=== PATIENT | female | born 1965 | race Caucasian/White ===

== ENCOUNTER → 2018-12-01 08:07 | Outpatient (CLI) | payer OTHER, SELFPAY ==
[2017-09-11 08:42] VITALS: BMI 38.3
--- NOTE | 2018-12-01 08:13 | BI_ITS ---
MAMMOGRAPHY - BILATERAL SCREENING REASON FOR EXAM: Female, 53 years old. Routine annual screening examination. PERTINENT HISTORY: Grandmother with breast cancer. Aunt with breast cancer. TECHNIQUE: Digital bilateral breast eusebia (3D mammographic acquisition) in the CC and MLO projections. 2-D mediolateral oblique (MLO) and craniocaudad (CC) views of both breasts were obtained. CAD: Full Field Digital Mammography with Computer Added Detection was performed. COMPARISON: Comparison is made with prior study dated July 18, 2017 and February 19, 2016. FINDINGS: Breast Composition: There are scattered areas of fibroglandular density. There are no dominant masses or suspicious calcifications. No other significant abnormalities are identified. There has been no significant change since the prior study. BI/SCREENING MAMM (CAD), BILAT IMPRESSION: Stable bilateral screening mammogram. Yearly follow-up mammogram recommended. (A) ASSESSMENT CATEGORY: BIRADS Category 1: Negative. A letter regarding these results will be sent to the patient by the facility within 30 days. Approximately 10% of breast cancers are not detected by mammography. A normal mammogram should not delay biopsy of a clinically suspicious abnormality. [id number] Electronically Signed: Dameon Alejandro, at 8:57 EDT , Service support ,
== END ==
PROVIDERS: Family Provider Family Medicine; PCP Family Medicine; Referring Provider Family Medicine; Visit Provider Family Medicine
DX: Z12.31 Encounter for screening mammogram for malignant neoplasm of breast (principal)
CPT/HCPCS: 77063; 77067

== ENCOUNTER → 2020-01-10 11:54 | Outpatient (CLI) | payer OTHER, SELFPAY ==
--- NOTE | 2020-01-10 11:55 | BI_ITS ---
MAMMOGRAPHY - BILATERAL SCREENING REASON FOR EXAM: Female, 54 years old. Routine annual screening examination. PERTINENT HISTORY: Grandmother with breast cancer. Aunt with breast cancer. TECHNIQUE: Digital bilateral breast zoya (3D mammographic acquisition) in the CC and MLO projections. 2-D mediolateral oblique (MLO) and craniocaudad (CC) views of both breasts were obtained. CAD: Full Field Digital Mammography with Computer Added Detection was performed. COMPARISON: Comparison is made with prior examination dated December 01, 2018 and July 18, 2017. FINDINGS: Breast Composition: There are scattered areas of fibroglandular density. There are no dominant masses or suspicious calcifications. No other significant abnormalities are identified. There has been no significant change since the prior study. BI/SCREEN MAMM (CAD) W/ZOYA BILAT IMPRESSION: Stable bilateral screening mammogram. Yearly follow-up mammogram recommended. (A) ASSESSMENT CATEGORY: BIRADS Category 1: Negative. A letter regarding these results will be sent to the patient by the facility within 30 days. Approximately 10% of breast cancers are not detected by mammography. A normal mammogram should not delay biopsy of a clinically suspicious abnormality. [id number] Electronically Signed: Dameon Alejandro, at 12:59 EDT , Service support ,
== END ==
PROVIDERS: PCP Family Medicine; Referring Provider Family Medicine; Visit Provider Family Medicine
DX: Z12.31 Encounter for screening mammogram for malignant neoplasm of breast (principal)
CPT/HCPCS: 77063; 77067

== ENCOUNTER → 2020-10-09 07:09 | Outpatient (CLI) | payer OTHER, SELFPAY ==
[2020-10-09 10:38] LABS: Vitamin D,25 Hydroxy 38.3 ng/mL
[2020-10-09 10:50] LABS: Anion Gap 5 (5-15); BUN 20 mg/dL (7-18); BUN/Creat Ratio 23.7 RATIO (10-20); Calcium,Total 9.5 mg/dL (8.5-10.1); Chloride 104 mmol/L (98-107); Cholesterol 278 mg/dL (200); Creatinine, Serum 0.84 mg/dL (0.55-1.02); EST Glomerular Filtration Rate 75 mL/min (>60); Est Glom Filt Rate - Afr Amer 90 mL/min (>60); Glucose 141 mg/dL (74-106); High Density Lipoprotein 83 mg/dL; Potassium 4.1 mmol/L (3.5-5.1); Sodium Level 137 mmol/L (136-145); Thyroid Stim Hormone (TSH) 2.22 uIU/mL (0.358-3.74); Triglycerides 72 mg/dL; Very Low Density Lipoprotein 14 mg/dL (5-40)
== END ==
PROVIDERS: PCP Family Medicine; Referring Provider Family Medicine; Visit Provider Family Medicine
DX: Z13.29 Encounter for screening for other suspected endocrine disorder (principal); L40.50 Arthropathic psoriasis, unspecified; R73.01 Impaired fasting glucose
CPT/HCPCS: 36415; 80048; 80061; 82306; 84443

== ENCOUNTER → 2020-12-22 | Outpatient (CLI) | payer OTHER, SELFPAY ==
[2017-09-11 08:42] VITALS: BMI 38.3
[2020-12-25 16:47] LABS: HPV Reflexed? NOT INDICATED
== END | disposition home or self-care (01) ==
LOC: LABSPEC 14:01
PROVIDERS: PCP Family Medicine; Referring Provider Family Medicine; Visit Provider Registered Nurse
DX: Z01.419 Encounter for gynecological examination (general) (routine) without abnormal findings (principal)
CPT/HCPCS: 88175; G0145

== ENCOUNTER → 2021-01-11 09:48 | Outpatient (CLI) | payer OTHER, SELFPAY ==
[2017-09-11 08:42] VITALS: BMI 38.3
--- NOTE | 2021-01-11 09:50 | BI_ITS ---
MAMMOGRAPHY - BILATERAL SCREENING 3-D TOMOSYNTHESIS REASON FOR EXAM: Female, 55 years old. Routine screening PERTINENT HISTORY: Grandmother and aunt with breast cancer.. TECHNIQUE: 2-D mammograms and 3-D Tomosynthesis of the breast (s) were performed. CAD was performed. COMPARISON: 01/10/2020 FINDINGS: The breast composition is almost entirely fat. Scattered benign calcifications are seen. No dense spiculated masses or suspicious microcalcifications are identified. No architectural distortion is identified. There is no skin thickening or retraction. There has been no significant change since the prior study. BI/SCRN MAMM (CAD)W/ZOYA BILAT IMPRESSION: No mammographic signs of malignancy. Routine yearly mammograms recommended. ASSESSMENT CATEGORY: BIRADS Category 1: Negative. A letter regarding these results will be sent to the patient by the facility within 30 days. FOLLOW UP RECOMMENDATION: Yearly follow up mammogram recommended. (A) Approximately 10% of breast cancers are not detected by mammography. A normal mammogram should not delay biopsy of a clinically suspicious abnormality. Electronically Signed: Lucian Carr MD at 11:19 EDT , Service support ,
== END ==
PROVIDERS: PCP Family Medicine; Referring Provider Family Medicine; Visit Provider Family Medicine
DX: Z12.31 Encounter for screening mammogram for malignant neoplasm of breast (principal); Z13.89 Encounter for screening for other disorder
CPT/HCPCS: 77063; 77067

== ENCOUNTER → 2021-06-17 10:15 | Outpatient (CLI) | payer OTHER, SELFPAY ==
--- NOTE | 2021-06-17 10:17 | RAD_ITS ---
STUDY: X-RAY CHEST REASON FOR EXAM: Female, 56 years old. Fever and cough TECHNIQUE: PA and lateral views of the chest. COMPARISON: None. FINDINGS: The lungs are clear and expanded. There is no demonstrated pleural abnormality. Normal size heart. Normal mediastinum and mery. Normal visualized pulmonary arteries. Normal visualized aortic arch and descending thoracic aorta. Normal visualized thoracic spine. Normal visualized ribs, clavicles, and shoulders. There is no demonstrated abnormality of the visualized soft tissue structures of the upper abdomen. RAD/Chest PA and Lateral IMPRESSION: No acute pulmonary process Electronically Signed: Lucian Carr MD at 10:30 EDT , Service support ,
== END ==
PROVIDERS: PCP Family Medicine; Referring Provider Family Medicine; Visit Provider Family Medicine
DX: R05.9 Cough, unspecified (principal)
CPT/HCPCS: 71046

== ENCOUNTER 2021-07-21 10:41 | Emergency (ER) | payer OTHER, SELFPAY ==
[2021-07-21] VITALS (7 sets, daily range): BP systolic 135–161; BP diastolic 75–86; PULSE 70–82; RESP 22–29; TEMP 36.7–37; O2SAT 87–99; BMI 34.3
--- NOTE | 2021-07-21 10:53 | EKG12_ITS ---
Test Reason : SOB Blood Pressure : / mmHG Vent. Rate : 084 BPM Atrial Rate : 084 BPM P-R Int : 138 ms QRS Dur : 082 ms QT Int : 358 ms P-R-T Axes : 019 -09 -06 degrees QTc Int : 423 ms Normal sinus rhythm Nonspecific T wave abnormality Abnormal ECG Confirmed by FREEMAN PARRY, BHARATH ([id number]), technical editor ANSELMO TONG ([id number]) on 07/23/2021 11:44:23 AM Referred By: MODESTO Confirmed By:BHARATH MILLARD MD
--- NOTE | 2021-07-21 11:00 | ED.VIS.DYS ---
HPI History of Present Illness Chief Complaint: Shortness of Breath Narrative Narrative: Patient presents with her because of increased shortness of breath that she has had over the last 3 days. She states that she has a history of a chronic cough, and recently finished steroids along with antibiotics on Monday of last week. Monday, she began feeling short of breath with dyspnea on exertion and mild orthopnea. She denies any history of CHF. No leg swelling. She did a home test for COVID-19 yesterday which was positive. She has been vaccinated against it. Her states that he applied a pulse oximeter to her, and when she would walk to go to the bathroom, it would read 83, and her baseline was 91%. She describes the chest tightness, and pain with coughing, but no nausea or vomiting. No diaphoresis. [facility] Medical History (Updated 07/21/21 @ 14:14 by Dwayne Ingram MD) History of chronic cough IBS (irritable bowel syndrome) Home Medications Ranitidine [Zantac] 150 mg PO DAILY 09/07/17 [History Last Taken Unknown] duloxetine 90 mg PO DAILY 09/07/17 [History Last Taken Unknown] multivitamin [Daily Multiple Vitamin] 1 ea PO DAILY 09/07/17 [History Last Taken Unknown] albuterol sulfate [Ventolin HFA] 1 - 2 puff INHALATION Q4H PRN PRN #1 ea 07/21/21 [Rx Last Taken Unknown] benzonatate 100 mg PO BID PRN 07/21/21 [History Last Taken Unknown] dexamethasone [Decadron] 6 mg PO DAILY #10 tab 07/21/21 [Rx Last Taken Unknown] fluticasone propionate 1 spray INTRANASAL DAILY 07/21/21 [History Last Taken Unknown] fluticasone propionate [Flovent HFA] 1 puff INHALATION DAILY 07/21/21 [History Last Taken Unknown] Allergy/AdvReac Type Severity Reaction Status Date / Time No Known Allergies Allergy Verified 07/21/21 10:41 Surgical History (Updated 07/21/21 @ 11:07 by Jesus [place]) History of foot surgery History of tonsillectomy History of tubal ligation Social History Smoking Status: Never smoker ROS ROS ED ROS Narrative Constitutional: No fever, no chills. HEENT: No sore throat. No neck pain. No loss of vision. No rhinorrhea. Cardiovascular: Positive chest pain with coughing, nonradiating. No palpitations. No pedal edema. Respiratory: Positive cough, positive shortness of breath with dyspnea on exertion and orthopnea. Abdominal: No abdominal pain. No nausea. No vomiting. Genitourinary: No dysuria. No hematuria. Musculoskeletal: No myalgias. No arthralgias. Neurologic: No headaches. No dizziness. No lightheadedness. Skin: No rash. No change in color. Psychiatric: No depression. No anxiety. EXAM Physical Exam Narrative Exam Narrative: Afebrile. Vital signs noted. HEENT: Normocephalic. Atraumatic. PERRL, EOMI. Neck soft and supple. No point tenderness or step off. Cardiovascular: Regular rate and rhythm. No murmurs, rubs, or gallops appreciated. Respiratory: No tachypnea. Bilateral rhonchi at the bases. Gastrointestinal: Abdomen soft, nontender, with normoactive bowel sounds. No rebound or guarding. Neurological: Awake. Alert. Nonfocal, nonlateralizing. Skin: No rash. Normal color. No pallor. Musculoskeletal: No pedal edema. Full range of motion extremities. Const Vital Signs: 07/21/21 10:41 07/21/21 11:20 07/21/21 11:21 Temperature 98.0 F Temperature Source Oral Pulse Rate 82 Respiratory Rate 22 H Respiratory Effort Normal Respiratory Depth Normal Respiratory Pattern Normal Blood Pressure 146/86 H Blood Pressure Mean 106 Pulse Ox 95 Pulse Ox [AMBULATING on Room Air] 87 Pulse Ox [AMBULATING with Oxygen #1] 99 Pulse Ox [At REST on Room Air] 95 Pulse Ox [At REST with Oxygen] 99 Oxygen Delivery Method Room Air Room Air Oxygen Flow Rate (L/min) Oxygen Flow Rate (L/min) [AMBULATING with Oxygen #1] 2 Oxygen Flow Rate (L/min) [At REST with Oxygen] 2 07/21/21 12:18 07/21/21 13:00 Temperature 98.0 F 98.3 F Temperature Source Oral Temporal Pulse Rate 71 70 Respiratory Rate 24 H 28 H Respiratory Effort Respiratory Depth Respiratory Pattern Blood Pressure 150/76 H 146/81 H Blood Pressure Mean 100 102 Pulse Ox 98 96 Pulse Ox [AMBULATING on Room Air] Pulse Ox [AMBULATING with Oxygen #1] Pulse Ox [At REST on Room Air] Pulse Ox [At REST with Oxygen] Oxygen Delivery Method Nasal Cannula Nasal Cannula Oxygen Flow Rate (L/min) 2 2 Oxygen Flow Rate (L/min) [AMBULATING with Oxygen #1] Oxygen Flow Rate (L/min) [At REST with Oxygen] MDM MDM MDM Narrative Medical decision making narrative: Pulse ox in triage was 95% on room air. Comprehensive work-up was pursued. I will obtain a chest x-ray along with basic laboratory work including troponin and D-dimer given her reported Covid positive status. Her EKG demonstrates normal sinus rhythm at 84 bpm without ectopy or acute ST changes. WBC count slightly low at 4.3 consistent with Covid. D-dimer is elevated at 1.0. Electrolyte panel is grossly unremarkable except for glucose appropriately elevated at 134, she has normal anion gap however. High-sensitivity troponin negative at 6. Lactic acid is normal at 0.7. CTA was obtained which shows Covid pneumonia. There is no evidence of PE. With ambulation, she has hypoxic, below 88. She is satting well on nasal cannula. I discussed patient with social work for concentrator of oxygen for home use. She had been given dexamethasone 6 mg intravenously here. I will write her prescription for the next 10 days along with an albuterol inhaler. Given the limited amount of inpatient beds, and that she is satting well on nasal cannula oxygen and does not require high flow, as she is receiving nasal cannula oxygen/concentrator, she will be discharged to follow-up with her primary care physician. Return instructions to the emergency department were reviewed. Disposition is discharged home in stable condition. Lab Data Attestation: I reviewed the patient's lab results. Labs: Laboratory Results - last 24 hr 07/21/21 07/21/21 07/21/21 11:10 11:10 11:10 WBC 4.3 L RBC 4.89 Hgb 14.2 Hct 42.8 MCV 87.5 MCH 29.0 MCHC 33.2 RDW Std Deviation 39.9 RDW Coeff of Olga 12.5 Plt Count 251 MPV 9.0 Immature Gran % (Auto) 0.200 Neut % (Auto) 69.9 Lymph % (Auto) 20.4 Ware % (Auto) 7.7 Eos % (Auto) 1.6 Baso % (Auto) 0.2 Absolute Neuts (auto) 3.0 Absolute Lymphs (auto) 0.88 Nucleated RBC % 0 D-Dimer Quant (PE/DVT) 1.05 H* Sodium 141 Potassium 3.6 Chloride 103 Carbon Dioxide 30.0 Anion Gap 8 BUN 14 Creatinine 0.72 Estim Creat Clear Calc 76.24 Est GFR (MDRD) Af Amer 109 Est GFR (MDRD) Non-Af 90 BUN/Creatinine Ratio 19.6 Glucose 134 H Lactic Acid Calcium 9.2 Total Bilirubin 0.60 AST 143 H ALT 255 H Alkaline Phosphatase 279 H Troponin I High Sens 6 Total Protein 7.6 Albumin 2.8 L Globulin 4.8 H Albumin/Globulin Ratio 0.6 L 07/21/21 11:10 WBC RBC Hgb Hct MCV MCH MCHC RDW Std Deviation RDW Coeff of Olga Plt Count MPV Immature Gran % (Auto) Neut % (Auto) Lymph % (Auto) Ware % (Auto) Eos % (Auto) Baso % (Auto) Absolute Neuts (auto) Absolute Lymphs (auto) Nucleated RBC % D-Dimer Quant (PE/DVT) Sodium Potassium Chloride Carbon Dioxide Anion Gap BUN Creatinine Estim Creat Clear Calc Est GFR (MDRD) Af Amer Est GFR (MDRD) Non-Af BUN/Creatinine Ratio Glucose Lactic Acid 0.7 Calcium Total Bilirubin AST ALT Alkaline Phosphatase Troponin I High Sens Total Protein Albumin Globulin Albumin/Globulin Ratio Radiography Diagnostic Testing: Clinical Impression(s) from Imaging Studies Chest X-Ray 07/21/21 11:30 IMPRESSION: Findings suggestive of multifocal infectious/inflammatory etiology and can be seen with atypical pneumonia such as Covid pneumonia. Electronically Signed: Schuyler Goins MD at 11:56 EST Tel , Service support , Chest CTA 07/21/21 11:37 IMPRESSION: 1. No central or segmental pulmonary embolism. 2. Multifocal infiltrates with features commonly reported with COVID pneumonia. Electronically Signed: José Luis Herrera MD ([place]) at 12:10 EST , Service support , Discharge Plan Triage Chief Complaint: Shortness of Breath ED Provider: Dwayne Ingram Dx/Rx/DC Orders Clinical Impression: Pneumonia due to COVID-19 virus, Hypoxia, Shortness of breath Instructions: Coronavirus Disease 2019 (COVID-19): Caring for Yourself or Others, ED Dyspnea Prescriptions: New albuterol sulfate [Ventolin HFA] 90 mcg/actuation HFA aerosol inhaler 1 - 2 puff inhalation Q4H PRN PRN (Reason: Wheezing) Qty: 1 RF: 0 dexamethasone [Decadron] 6 mg tablet 6 mg PO DAILY Qty: 10 RF: 0 No Action multivitamin [Daily Multiple] 1 EACH tablet 1 ea PO DAILY RF: 0 duloxetine 60 MG capsule 90 mg PO DAILY RF: 0 Ranitidine [Zantac] 150 MG tablet 150 mg PO DAILY RF: 0 benzonatate 100 mg capsule 100 mg PO BID PRN (Reason: Cough) RF: 0 fluticasone propionate 50 mcg/actuation spray,suspension 1 spray INTRANASAL DAILY RF: 0 Flovent HFA 110 mcg/actuation HFA aerosol inhaler 1 puff INHALATION DAILY RF: 0 Primary Care Provider: Dank Meadows Referrals: Dank Meadows MD [Primary Care Provider] - 07/27/21 Disposition Disposition: Home, Self Care
[2021-07-21 11:18] LABS: Absolute Lymphocyte Count 0.88 X10^3/uL (0.83-4.51); Basophil# 0.01 X10^3/uL; Basophil% 0.2 % (0-1); Eosinophil# 0.07 X10^3/uL; Eosinophils% 1.6 % (0-5); Hematocrit 42.8 % (37-47); Hemoglobin 14.2 g/dL (12.0-15.0); Lymphocyte # 0.88 X10^3/ul (0.83-4.51); Lymphocyte % 20.4 % (19-41); Mean Corp Hgb Conc 33.2 g/dL (32-36); Mean Corpuscular Volume 87.5 fL (81-99); Monocyte# 0.33 X10^3/uL; Monocyte% 7.7 % (0-10); NRBC Flagged by Analyzer 0 % (0-5); Neutrophil # 3.01 X10^3/uL (2.7-7.7); Neutrophil % 69.9 % (47-70); Platelet Count 251 K/mm3 (150-450); RBC Distribution Width CV 12.5 % (11.6-14.6); RBC Distribution Width SD 39.9 fl (35.1-43.9); Red Blood Count 4.89 M/mm3 (4.2-5.4); White Blood Count 4.3 K/mm3 (4.4-11.0)
--- NOTE | 2021-07-21 11:30 | RAD_ITS ---
INDICATION: cough EXAMINATION/TECHNIQUE: X-RAY - XR Chest 1 View COMPARISON: Chest radiograph from 06/17/2021. FINDINGS: LINES/DEVICES: None. Cardiac mediastinal silhouette is within normal limits. There are hazy opacities in the periphery of the left lower lobe. Similar trace hazy opacities are seen in the periphery of the right lower lobe. These were not present on chest radiograph from 06/17/2021 No sizable pleural effusion or pneumothorax. Osseous structures are grossly intact. RAD/Chest 1 View (Portable) IMPRESSION: Findings suggestive of multifocal infectious/inflammatory etiology and can be seen with atypical pneumonia such as Covid pneumonia. Electronically Signed: Schuyler Goins MD at 11:56 EST Tel , Service support ,
[2021-07-21 11:35] LABS: D-Dimer Quantitative (DVT/PE) 1.05 FEU/ug/m (0.27-0.49)
[2021-07-21 11:36] LABS: ALB/GLOB Ratio 0.6 RATIO (0.9-2.4); AST(SGOT) 143 U/L (15-37); Alanine Aminotransfer ALT/SGPT 255 U/L (13-56); Albumin, Serum 2.8 g/dL (3.2-5.0); Alkaline Phosphatase 279 U/L (45-117); Anion Gap 8 (5-15); BUN 14 mg/dL (7-18); BUN/Creat Ratio 19.6 RATIO (10-20); Calcium,Total 9.2 mg/dL (8.5-10.1); Chloride 103 mmol/L (98-107); Creatinine, Serum 0.72 mg/dL (0.55-1.02); EST Glomerular Filtration Rate 90 mL/min (>60); Est Glom Filt Rate - Afr Amer 109 mL/min (>60); Estimated Creatinine Clearance 76.24 ml/min; Globulin 4.8 g/dL (2.2-4.2); Glucose 134 mg/dL (74-106); Potassium 3.6 mmol/L (3.5-5.1); Protein, Total 7.6 g/dL (6.4-8.2); Sodium Level 141 mmol/L (136-145); Troponin-I HS 6 pg/mL (3.0-54.0)
--- NOTE | 2021-07-21 11:37 | CT_ITS ---
STUDY: CTA CHEST REASON FOR EXAM: Female, 56 years old. Shortness of Breath RADIATION DOSAGE (If Supplied By Facility): CTDIvol = ( 12.63 ) mGy, DLP = ( 477.41 ) mGycm TECHNIQUE: The examination was performed with the intravenous administration of IV 100mL [id number]. Post-processing of the angiographic images was performed, with multiplanar reformation and 3D reconstruction. Individualized dose optimization techniques were used for this CT. COMPARISON: None. FINDINGS: Normal enhancement of the main pulmonary artery and right and left pulmonary arteries. Normal enhancement of the bilateral peripheral pulmonary arteries. There is no demonstrated pulmonary embolism. Segmental vessels limited in evaluation due to motion. Normal thoracic aorta and visualized great vessels. There is no demonstrated aortic dissection. Normal heart and pericardium. Normal mediastinum. Normal hilar regions. Multifocal peripheral dominant groundglass and interstitial infiltrates with features commonly reported with COVID pneumonia. Normal chest wall structures. Normal osseous structures. Normal visualized upper abdomen. CT/CTA Chest W/WO Contrast IMPRESSION: 1. No central or segmental pulmonary embolism. 2. Multifocal infiltrates with features commonly reported with COVID pneumonia. Electronically Signed: José Luis Herrera MD ([place]) at 12:10 EST , Service support ,
[2021-07-21 11:44] LABS: Lactic Acid 0.7 mmol/L (0.4-1.9)
[2021-07-21] MEDS: dexAMETHasone 10 MG/ML Vial 6 MG IV (12:17)
--- NOTE | 2021-07-21 13:08 | CM.ED ---
SOCIAL WORK Referral Source: Dr. Ingram Reason for Consult: COVID Positive patient, requiring home O2 Discussed need for home O2 with physician and patient. Referral for home O2 called and faxed to [facility]. Patient requires 2L. Awaiting provider to process referral at this time. Opal Bustamante, SURFACE MINER, FLIGHT SURGEON
--- NOTE | 2021-07-21 14:30 | CM.ED ---
Call to [facility] to check on status of home O2. Worker reports is processing the referral.
--- NOTE | 2021-07-21 15:47 | CM.ED ---
Call to [facility] to check on status. Worker reports order has been processed and [facility] will arrive around 5pm. Staff updated.
--- NOTE | 2021-07-21 17:51 | CM.ED ---
Call to [facility] to check on status of home O2, worker reports tech is doing a set up in [place], [place] he will be en route to ER after set up. Staff updated.
--- NOTE | 2021-07-21 18:11 | CM.ED ---
Call from tech with [facility] who reports ETA for home O2-portable tank is 30 minutes. Staff updated.
--- NOTE | 2021-07-21 18:53 | CM.ED ---
Portable O2 tank from [facility] delivered at this time.
--- NOTE | 2021-07-21 18:59 | ED.RN ---
Oxygen tank morales arrives with portable tanks for patient. he advises us he does not go into patient rooms and he does not do any education for portable tank or cencentrator. He states to let the patients know their concentrators are at the patients front door. Patient and spouse notified. PT given phone number to call if they need help. ED RT at bedside for home O2 education and pulse ox given to patient.
--- NOTE | 2021-07-21 19:03 | CM.ED ---
Case management notified for follow up.
--- NOTE | 2021-07-23 14:19 | CASEMGMT ---
ROSELINE ESTRADA ED COVID Home O2 Follow-up: This ROSELINE ESTRADA contacted pt for follow-up. Pt states she is feeling better and states the O2 is helping. Pt reports to be wearing her home O2 at 2-3l/min and her PO to be 94-95%. Pt states she feels SOB only with activity and it resolves with rest. Pt states she received her prescriptions and is taking them as instructed. Pt states she is remaining in quarantine. Reviewed quarantine period and follow-up with Dr. Meadows after 07/27/21 per her discharge instructions. Pt expressed understanding. Pt denies any further questions or concerns. Mario Davalos RN CM
--- NOTE | 2021-07-27 10:47 | CASEMGMT ---
RN NATALIE ED COVID Home O2 Follow-up: This RN NATALIE attempted to contact pt for further follow-up. Identifying voicemail message was received and a message was left providing contact information if pt has any concerns or questions. Mario Davalos RN CM
== END 2021-07-21 19:19 | disposition home or self-care (01) ==
PROVIDERS: Emergency Provider Emergency Medicine; PCP Family Medicine
DX: U07.1 COVID-19 (principal); J12.82 Pneumonia due to coronavirus disease 2019; R09.02 Hypoxemia
CPT/HCPCS: 71045; 71275; 80053; 83605; 84484; 85025; 85379; 87426; 93005; 96374; 99284; Q9967; A4216

== ENCOUNTER 2021-09-06 09:20 | Outpatient (CLI) | payer OTHER, SELFPAY ==
--- NOTE | 2021-09-07 09:42 | PFT ---
INTRODUCTION: The patient is a 56-year-old female that presents for pulmonary function studies post COVID-19. Respiratory therapy reported good patient effort. Bronchodilators were used during testing. INTERPRETATION: Forced expiration spirometry demonstrates no evidence of a large airways obstructive ventilatory defect. There was no significant response to aerosolized bronchodilators. Spirograms are of good quality and plateau normally. The respiratory flow volume loop is normal. Body plethysmography was performed and revealed lung volumes to be within normal limits. Diffusing capacity by single breath CO is also within normal limits. IMPRESSION: Grossly normal pulmonary function studies.
== END 2021-09-06 23:59 | disposition short-term general hospital (02) ==
PROVIDERS: PCP Family Medicine; Referring Provider Family Medicine; Visit Provider Family Medicine
DX: U07.1 COVID-19 (principal)
CPT/HCPCS: 94060; 94726; 94729

== ENCOUNTER 2021-10-22 10:28 | Outpatient (CLI) | payer OTHER, SELFPAY ==
[2021-10-22 12:01] LABS: AST(SGOT) 50 U/L (15-37); Alanine Aminotransfer ALT/SGPT 166 U/L (13-56); Alkaline Phosphatase 154 U/L (45-117); Anion Gap 6 (5-15); BUN 20 mg/dL (7-18); BUN/Creat Ratio 27.2 RATIO (10-20); CRP < 2.90 mg/L (0.0-3.0); Calcium,Total 9.1 mg/dL (8.5-10.1); Chloride 106 mmol/L (98-107); Creatinine, Serum 0.74 mg/dL (0.55-1.02); EST Glomerular Filtration Rate 87 mL/min (>60); Est Glom Filt Rate - Afr Amer 105 mL/min (>60); Ferritin 171 ng/mL (8-252); Glucose 117 mg/dL (74-106); LDH 219 U/L (84-246); Potassium 3.9 mmol/L (3.5-5.1); Sodium Level 139 mmol/L (136-145)
[2021-10-22 12:12] LABS: Erythrocyte Sedimentation Rate 16 mm/hr (0-30)
[2021-10-22 12:32] LABS: HIV - WCH Non-Reactive (Nonreactive)
[2021-10-22 12:48] LABS: Hemoglobin A1c 5.9 % (3.8-5.6)
[2021-10-23 18:19] LABS: Anti-Mitochondrial AB <20.0 Units (0.0-20.0)
[2021-10-24 17:06] LABS: Anti-Centromere B Ab <0.2 AI (0.0-0.9); Anti-Chromatin <0.2 AI (0.0-0.9); Anti-Jo <0.2 AI (0.0-0.9); Anti-Scleroderma-70 AB <0.2 AI (0.0-0.9); RNP Ab <0.2 AI (0.0-0.9); SJOGREN'S Anti-SS-A test < 0.2 AI (0.0-0.9); SJOGREN'S Anti-SS-B test < 0.2 AI (0.0-0.9); Smith Ab <0.2 AI (0.0-0.9)
[2021-10-25 13:29] LABS: Anti-dsDNA Ab <1 IU/mL (0-9)
[2021-10-26 12:08] LABS: Angiotensin Convert Enzyme 61 U/L (14-82); Ceruloplasmin 31.6 mg/dL (19.0-39.0); Cytoplasmic Ab (C-ANCA) <1:20 titer (Neg:<1:20); HEPATITIS B SURFACE AG Negative (Negative); Hepatitis A IgM Antibody Negative (Negative); Hepatitis B Core AB IgM Negative (Negative)
[2021-10-27 13:33] LABS: AFP, Tumor Marker 2.2 ng/mL (0.0-8.3); Anti-Smooth Muscle ABS 6 Units (0-19); Copper, Serum or Plasma 139 ug/dL (80-158); Haptoglobin 160 mg/dL (33-346); Hep C Antibodies <0.1 s/co ratio (0.0-0.9); Perinuclear Ab (P-ANCA) <1:20 titer (Neg:<1:20)
== END 2021-10-22 23:59 | disposition home or self-care (01) ==
LOC: LAB 10:29
PROVIDERS: PCP Family Medicine; Referring Provider Internal Medicine Gastroenterology; Visit Provider Internal Medicine Gastroenterology
DX: R16.0 Hepatomegaly, not elsewhere classified (principal); K21.9 Gastro-esophageal reflux disease without esophagitis
CPT/HCPCS: 36415; 80053; 80074; 82105; 82164; 82390; 82525; 82728; 83010; 83036; 83516; 83615; 85652; 86140; 86225; 86235; 86256; 86703

== ENCOUNTER 2021-11-05 09:56 | Outpatient (CLI) | payer OTHER, SELFPAY ==
--- NOTE | 2021-11-05 10:01 | US_ITS ---
STUDY: ABDOMINAL ULTRASOUND - ELASTOGRAPHY REASON FOR VISIT: Female, 56 years old. Hepatomegaly. TECHNIQUE: Liver stiffness measurements were obtained on a ImmunGene RS 85 ultrasound machine using a CA 1-7 probe following the SRU guidelines. 3 measurements were obtained using a 2-D-SWE method. The IQR/M was 12% suggesting a quality data set. TECHNICAL QUALITY: Adequate. COMPARISON: Comparison is made with prior examination done earlier today. FINDINGS: Liver: Fatty infiltration of the liver. Mild hepatomegaly. Median liver stiffness measured 7.2 kPa. US/Elastography Parenchyma/Organ IMPRESSION: Liver stiffness measures 7.2 kPa compatible with F2-F3 (Mild to moderate liver fibrosis) Metavir score. Electronically Signed: Dameon Alejandro MD at 13:46 EST ,
--- NOTE | 2021-11-05 10:01 | US_ITS ---
STUDY: ABDOMINAL ULTRASOUND - RIGHT UPPER QUADRANT REASON FOR VISIT: Female, 56 years old hepatomegaly TECHNIQUE: Ultrasound evaluation of the right upper quadrant was performed with real-time and static cordoba-scale imaging. TECHNICAL QUALITY: Adequate. COMPARISON: None. FINDINGS: Liver: The liver measures 17.3 cm. There is increased echogenicity consistent with fatty infiltration. The bile ducts are within normal limits. There is hepatic color flow. The direction of portal flow is hepatopetal. There is no demonstrated mass lesion. Gallbladder: Normal distended gallbladder. The gallbladder wall measures 2 mm. There is a negative sonographic Davis''s sign. There is no pericholecystic fluid. There are no gallstones. Common Bile Duct (C.B.D.): The common bile duct measures 4 mm. Pancreas: Normal size of the head, body and tail of the pancreas. There is normal echogenicity of the pancreas. There is no demonstrated pancreatic mass or cyst. Right Kidney: Normal size of the right kidney. The right kidney measures 10.3 cm. Normal renal cortex. The right cortex measures 1.3 cm. There is no demonstrated renal mass or cyst. There is no right hydronephrosis. US/Abdomen Limited IMPRESSION: Fatty infiltration of the liver. Electronically Signed: Jacoby Mahmood MD at 11:10 [facility] ,
== END 2021-11-05 23:59 | disposition home or self-care (01) ==
PROVIDERS: PCP Family Medicine; Referring Provider Internal Medicine Gastroenterology; Visit Provider Internal Medicine Gastroenterology
DX: R16.0 Hepatomegaly, not elsewhere classified (principal); K21.9 Gastro-esophageal reflux disease without esophagitis; K76.0 Fatty (change of) liver, not elsewhere classified
CPT/HCPCS: 76705; 76981

== ENCOUNTER 2021-12-24 05:25 | Day surgery (SDC) | payer OTHER, SELFPAY ==
[2021-12-24] MEDS: Lactated Ringers 1,000 ML 15 ML IV (05:45)
[2021-12-24 06:01] VITALS: BP 140/79; PULSE 69; RESP 20; TEMP 36.4; O2SAT 100; BMI 38.3
[2021-12-24 06:30] LABS: Bedside Glucose 150 mg/dL (74-106)
--- NOTE | 2021-12-24 06:30 | EGD_PTH ---
PATIENT: VIKAS LEDBETTER LOC: EN U#:[id number] AGE/SX: 56/F ROOM: RE12/24/[address]: Dr. Joseph Bowen DO : 1965 BED: DIS: 12/24/2021 SPEC #: [id number] RECD: 12/24/21 10:29 STATUS: HUNG DESIRE #: [id number] ARTI: 12/24/21 06:[address]: Joseph Bowen DEPT: SURGICAL PATHOLOGY RECD BY: Deanna Acosta ENTERED: 12/24/21 11:59 SP TYPE: EGD BIOPSY ESHA DR: Dr. Siddhartha Meadows MD Tissues: Esophagus, NOS Procedures: Special Stain Group II Surgery Specimen Level IV Alcian Blue/PAS (control) HEADER OPERATION: EGD ([facility] [place]) PRE-OP DIAGNOSIS: GE reflux disease TISSUE SUBMITTED: Distal esophagus biopsy MICROSCOPIC DIAGNOSIS Distal esophagus biopsy: Fragments of gastroesophageal mucosa with moderate chronic inflammation. Intestinal metaplasia (goblet cell metaplasia) not identified. /SJ 12/27/2021 COMMENT Alcian blue/PAS stain with matched control is used in the evaluation of the specimen. MICROSCOPIC DESCRIPTION Slides are reviewed. GROSS DESCRIPTION Received is one container labeled with the patient name and designated distal esophagus biopsy. The specimen consists of multiple irregular fragments of light singh soft tissue that in aggregate measure 1.0 x 0.3 x 0.1 cm. The specimen is totally submitted in one cassette. / SJ 12/27/2021 TC:3 CPT:59995, 82019
--- NOTE | 2021-12-24 06:46 | HP.PCM_ITS ---
History and Physical Date of Admission: 12/24/21 56 F who presents to the office today for Evaluation of chronic cough with onset three years prior with ear ringing. PCP then referred to ENT who started her on allergy shots and nasal spray and this resolved symptoms. the cough without ear ringing started again ands he started nasal spray and doubled PPI therapy without effect. Some days are better than others but she has not found a trigger. PCP and ENT seen who thought it may be related to silent heartburn versus sinus drainage. Diet changes include sugar free and gluten free which helped previous heartburn symptoms. She has been on PPI therapy for many years. When she tries to stop medication heartburn symptoms return. CTA 07.21.21 found liver measuring 18.6cm and features consistent with COVID pneumonia. History of IBS related to emotion (managed with low dose anxiety medication), hiatal hernia, dysphagia with lodging s/p EGD on multiple occasions, Mitchell?s esophagus which has been dilated. Psoriasis with psoriatic arthritis (managed with diet and NSAID). ROS Const Constitutional: No anorexia, body ache, chills, excessive sweating, fatigue, fever(s), frequent falls, headache(s), decreased energy, malaise, night sweats, snoring, weakness, weight change, sleep problems, abnormal sleep pattern, change in appetite or other ENT ENT: No headache(s), difficulty swallowing, hoarseness or sore throat Resp Respiratory: No snoring Cardio Cardiology: No chest pain at rest or excessive sweating Gastro GI: No abdominal pain, belching, change in bowel habits, change in stool character, coffee ground emesis, constipation, cramping, diarrhea, heartburn, difficulty swallowing, feeling full early, excessive flatus, incontinent of stools, Vomiting blood/hematemesis, Blood in stool, loose stools, Black,tarry stools, nausea/dyspepsia, pain with swallowing, vomiting or other Skin Skin: No yellowing of the eye or itchy eyes Neuro Neurology: No weakness, frequent falls or headache(s) Psych Psychiatric: No abnormal sleep pattern and No change in appetite Endo Endocrine: No excessive sweating, fatigue or weight change Aller/Imm Allergy/Immunologic: No itchy eyes Gustavo/Lymp Hematologic/Lymphatic: No easy bleeding or easy bruising Quality Reporting Tobacco Screening ([facility] 138) Smoking Status: Never smoker Assessment and Plan Assessment and Plan (1) Gastroesophageal reflux disease: Status: Acute Orders: Orders: EGD with 48 pH probe Today HIV - WC Today Comprehensive Metabolic Profil Today CRP Today Ferritin Today LDH Today Hemoglobin A1c Today Erythrocyte Sed Rate Today Anti-Mitochondrial AB Today Hepatitis Panel Acute Today Angiotensin Convert Enzyme Today AFP, Tumor Marker Today ANCA Today Anti-Smooth Muscle ABS Today Ceruloplasmin Today Copper, Serum or Plasma Today Haptoglobin Today Abdomen Limited Today Elastography Parenchyma/Organ Today Plan - Dr. Joseph Bowen, DO: She will undergo an EGD with Moore probe. She will remain on PPI for the procedure. She was also known to have hiatal hernia. We will assess this along with entire upper GI tract up until the ligament of Treitz. Orders: Orders: EGD with 48 pH probe Today [facility] - WC Today Comprehensive Metabolic Profil Today CRP Today Ferritin Today LDH Today Hemoglobin A1c Today Erythrocyte Sed Rate Today Anti-Mitochondrial AB Today Hepatitis Panel Acute Today Angiotensin Convert Enzyme Today AFP, Tumor Marker Today ANCA Today Anti-Smooth Muscle ABS Today Ceruloplasmin Today Copper, Serum or Plasma Today Haptoglobin Today Abdomen Limited Today Elastography Parenchyma/Organ Today Plan - Dr. Joseph Bowen, DO: She will undergo an EGD with Moore probe. She will remain on PPI for the procedure. She was also known to have hiatal hernia. We will assess this along with entire upper GI tract up until the ligament of Treitz. (2) Hepatomegaly: Status: Acute Orders: Orders: EGD with 48 pH probe Today [facility] - WC Today Comprehensive Metabolic Profil Today CRP Today Ferritin Today LDH Today Hemoglobin A1c Today Erythrocyte Sed Rate Today Anti-Mitochondrial AB Today Hepatitis Panel Acute Today Angiotensin Convert Enzyme Today AFP, Tumor Marker Today ANCA Today Anti-Smooth Muscle ABS Today Ceruloplasmin Today Copper, Serum or Plasma Today Haptoglobin Today Abdomen Limited Today Elastography Parenchyma/Organ Today Plan - Dr. Joseph Bowen, DO: She has enlarged liver by imaging and by history. Get about for fatty liver disease including CRP, ESR, ferritin, LDH, hemoglobin A1c, acute hepatitis panel, YASHIRA level, fetoprotein, ANCA, smooth muscle antibody, ceruloplasmin, copper, haptoglobin. We will also get a FibroScan and an abdominal ultrasound. (3) Gastroesophageal reflux disease: Status: Acute Orders: Orders: EGD with 48 pH probe Today HIV - [facility] Today Comprehensive Metabolic Profil Today CRP Today Ferritin Today LDH Today Hemoglobin A1c Today Erythrocyte Sed Rate Today Anti-Mitochondrial AB Today Hepatitis Panel Acute Today Angiotensin Convert Enzyme Today AFP, Tumor Marker Today ANCA Today Anti-Smooth Muscle ABS Today Ceruloplasmin Today Copper, Serum or Plasma Today Haptoglobin Today Abdomen Limited Today Elastography Parenchyma/Organ Today Plan - Dr. Ruiz Friend, DO: She will undergo an EGD with Moore probe. She will remain on PPI for the procedure. She was also known to have hiatal hernia. We will assess this along with entire upper GI tract up until the ligament of Treitz. I have re-examined the patient. There are no clinical changes since date of exam.
[2021-12-24 07:05] VITALS: BP 131/76; BP 140/79; PULSE 84; RESP 15; TEMP 37.2; O2SAT 99
[2021-12-24 07:10] VITALS: BP 128/77; BP 140/79; PULSE 81; RESP 16; O2SAT 96
--- NOTE | 2021-12-24 07:11 | OP.EGD_ITS ---
Patient Name: Sarah Oliveira Procedure Date: 12/24/2021 6:23 AM Date of : 1965 Age: 56 Procedure: Upper GI endoscopy Indications: Failure to respond to medical treatment Providers: Joseph Bowen DO Medicines: Monitored Anesthesia Care Patient Profile: This is a 56 year old female. Refer to note in patient chart for documentation of history and physical. Patient has symptoms. She is status post EGD for biopsy. Complications: No immediate complications. Procedure: Pre-Anesthesia Assessment: - Prior to the procedure, a History and Physical was performed, and patient medications and allergies were reviewed. The patient is competent. The risks and benefits of the procedure and the sedation options and risks were discussed with the patient. All questions were answered and informed consent was obtained. Patient identification and proposed procedure were verified by the physician in the pre-procedure area. Mental Status Examination: alert and oriented. Airway Examination: normal oropharyngeal airway and neck mobility. Respiratory Examination: clear to auscultation. CV Examination: normal. Prophylactic Antibiotics: The patient does not require prophylactic antibiotics. Prior Anticoagulants: The patient has taken no previous anticoagulant or antiplatelet agents. ASA Grade Assessment: II - A patient with mild systemic disease. After reviewing the risks and benefits, the patient was deemed in satisfactory condition to undergo the procedure. The anesthesia plan was to use moderate sedation / analgesia (conscious sedation). Immediately prior to administration of medications, the patient was re-assessed for adequacy to receive sedatives. The heart rate, respiratory rate, oxygen saturations, blood pressure, adequacy of pulmonary ventilation, and response to care were monitored throughout the procedure. The physical status of the patient was re-assessed after the procedure. After obtaining informed consent, the endoscope was passed under direct vision. Throughout the procedure, the patient's blood pressure, pulse, and oxygen saturations were monitored continuously. The gastroscope was introduced through the mouth, and advanced to the second part of duodenum. The upper GI endoscopy was accomplished without difficulty. The patient tolerated the procedure well. Moderate Sedation: Moderate (conscious) sedation was administered by the endoscopy nurse and supervised by the endoscopist. The patient's oxygen saturation, heart rate, blood pressure and response to care were monitored. Total physician intraservice time was 15 minutes. Scope In: 6:54:29 AM Scope Out: 7:01:21 AM Total Procedure Duration Time 0 hours 6 minutes 52 seconds Findings: A moderate Schatzki ring was found in the lower third of the esophagus. Non-severe esophagitis with no bleeding was found 38 to 39 cm from the incisors. Biopsies were taken with a cold forceps for histology. Verification of patient identification for the specimen was done. Estimated blood loss was minimal. The mid esophagus was mildly tortuous. The ALEXANDER capsule with delivery system was introduced through the mouth and advanced into the esophagus, such that the ALEXANDER pH capsule was positioned 40 cm from the incisors, which was 6 cm proximal to the GE junction. Suction was applied to the well of the ALEXANDER pH capsule to suck in the adjacent mucosa of the esophagus using the external vacuum pump set at a minimum vacuum pressure of 550 mmHg for 30 seconds. The ALEXANDER pH capsule was then deployed by depressing the plunger on top of the handle to advance the locking pin into the mucosa, thereby attaching the capsule to the esophagus. The plunger was then rotated a quarter turn clockwise to release the capsule from the delivery system. The delivery system was then withdrawn. Endoscopy was utilized for probe placement and diagnostic evaluation. The entire examined stomach was normal. A few 5 mm sessile polyps with no bleeding and no stigmata of recent bleeding were found in the gastric fundus. The second portion of the duodenum was normal. Impression: - Moderate Schatzki ring. - Non-severe reflux esophagitis. Biopsied. - Tortuous esophagus. - Normal stomach. - A few gastric polyps. - Normal second portion of the duodenum. - The ALEXANDER pH capsule was positioned 40 cm from the incisors, which was 6 cm proximal to the GE junction. Recommendation: - Discharge patient to home. - Resume previous diet. - Continue present medications. - Await pathology results. Procedure Code(s): --- Professional --- 38149, 51, Esophagogastroduodenoscopy, flexible, transoral; with biopsy, single or multiple G0500, Moderate sedation services provided by the same physician or other qualified health group care worker performing a gastrointestinal endoscopic service that sedation supports, requiring the presence of an independent trained observer to assist in the monitoring of the patient's level of consciousness and physiological status; initial 15 minutes of intra-service time; patient age 5 years or older (additional time may be reported with 76420, as appropriate) CPT copyright 2017 [employer]. All rights reserved. The codes documented in this report are preliminary and upon instructor ballroom dancing review may be revised to meet current compliance requirements. Joseph Bowen DO 12/24/2021 7:11:12 AM This report has been signed electronically. Number of Addenda: 1 Note Initiated On: 12/24/2021 6:23 AM Addendum Number: 1 Addendum Date: 05/26/2022 6:22:36 AM MAC was used as sedation for this procedure. Joseph Bowen DO 05/26/2022 6:22:40 AM This report has been signed electronically.
--- NOTE | 2021-12-24 07:12 | OP.CCLET_ITS ---
05/26/2022 [facility] [address] [place] [address] Re : Upper GI endoscopy procedure for Sarah Oliveira Dear Dr. Meadows This procedure was performed on Friday, December 24, 2021. My impressions and recommendations are as follows: Impressions : - Moderate Schatzki ring. - Non-severe reflux esophagitis. Biopsied. - Tortuous esophagus. - Normal stomach. - A few gastric polyps. - Normal second portion of the duodenum. - The ALEXANDER pH capsule was positioned 40 cm from the incisors, which was 6 cm proximal to the GE junction. Recommendations : - Discharge patient to home. - Resume previous diet. - Continue present medications. - Await pathology results. My findings are described in the full procedure note, which is enclosed. If I can be of further assistance, please feel free to contact me at . Sincerely, Joseph Bowen, 12/24/2021 7:11:12 AM This report has been signed electronically.
[2021-12-24 07:15] VITALS: BP 132/74; BP 140/79; PULSE 69; RESP 16; O2SAT 96
[2021-12-24 07:20] VITALS: BP 113/70; BP 140/79; PULSE 65; RESP 16; TEMP 37.2; O2SAT 97
[2021-12-24 07:51] VITALS: BP 140/79
--- NOTE | 2022-01-06 16:19 | PCM.HP.BLA ---
History and Physical Study: 48-hour Moore pH capsule was placed on esophagus during EGD on 12/24/21 Indications for Moore pH Study: GERD, chronic cough despite doubling PPI; test was done on medication Study Findings 48-hour overview: Reflux occurs mostly during the upright position, although the longest reflux was 27.6 minutes while supine, and is not usually post-prandial Tracing does not always show symptom associations Using data from the worst of the two days, acid exposure time is 11.9%. Percent acid exposure time is the single parameter which has been shown to best correlate with endoscopic damage. Normal is <4.4% on the worst day, therefore this result is abnormal. The DeMeester Score (normal is <14.72) on the worst of the two days is 37.2 which is abnormal. The DeMeester Score is a method of adding weights to six common pH measurement parameters, and presenting esophageal acid exposure data as a cumulative score. Symptom Index (SI) >50% is significant (it indicates that >50% of the observed symptoms were associated with reflux). In this study, the SI is 0% for heartburn which is not significant. In this study, the SI is 20.5% for regurgitation which is not significant. Symptom Association Probability (SAP) helps to determine if there is a true correlation between symptoms and reflux. SAP >95% indicates a likely correlation. In this study, the SAP is 0% for heartburn which does not indicate a true correlation. In this study, the SAP is 93.2% for regurgitation which does not indicate a true correlation. Interpretation Percent acid exposure time and the DeMeester Score are both abnormal Her symptoms are not necessarily correlated with reflux
== END 2021-12-24 08:01 | disposition home or self-care (01) ==
LOC: EN 05:28 → AC 05:28
PROVIDERS: PCP Family Medicine; Referring Provider Family Medicine; Visit Provider Internal Medicine Gastroenterology
PROC: 0DJ08ZZ Inspection of Upper Intestinal Tract, Via Natural or Artificial Opening Endoscopic (ICD-10-PCS; CPT 43235; principal; 2021-12-24 06:25)
DX: K21.00 Gastro-esophageal reflux disease with esophagitis, without bleeding (principal); L40.50 Arthropathic psoriasis, unspecified; E66.01 Morbid (severe) obesity due to excess calories; E11.9 Type 2 diabetes mellitus without complications; K31.7 Polyp of stomach and duodenum; K22.2 Esophageal obstruction; K44.9 Diaphragmatic hernia without obstruction or gangrene; K58.8 Other irritable bowel syndrome; M19.90 Unspecified osteoarthritis, unspecified site; R16.0 Hepatomegaly, not elsewhere classified; Z68.38 Body mass index [BMI] 38.0-38.9, adult; Z79.84 Long term (current) use of oral hypoglycemic drugs; Z79.899 Other long term (current) drug therapy; Z86.16 Personal history of COVID-19
CPT/HCPCS: 43239; 91035; 82962; 87426; 88305; 88313; J7120; J2405

== ENCOUNTER → 2022-06-02 | Outpatient (CLI) | payer OTHER, SELFPAY ==
--- NOTE | 2022-06-02 12:25 | BI_ITS ---
MAMMOGRAPHY - BILATERAL SCREENING REASON FOR EXAM: Female, 57 years old. Routine annual screening examination. PERTINENT HISTORY: Grandmother with breast cancer. Aunts with breast cancer. TECHNIQUE: Digital bilateral breast zoya (3D mammographic acquisition) in the CC and MLO projections. 2-D mediolateral oblique (MLO) and craniocaudad (CC) views of both breasts were obtained. CAD: Full Field Digital Mammography with Computer Added Detection was performed. COMPARISON: Comparison is made with prior examination dated 01/11/2021 and 01/10/2020. FINDINGS: Breast Composition: The breasts are almost entirely fatty. There are no dominant masses or suspicious calcifications. No other significant abnormalities are identified. There has been no significant change since the prior study. BI/SCRN MAMM (CAD)W/ZOYA BILAT IMPRESSION: Stable bilateral screening mammogram. Yearly follow-up mammogram recommended. (A) ASSESSMENT CATEGORY: BIRADS Category 1: Negative. A letter regarding these results will be sent to the patient by the facility within 30 days. Approximately 10% of breast cancers are not detected by mammography. A normal mammogram should not delay biopsy of a clinically suspicious abnormality. [id number] Electronically Signed: Dameon Alejandro MD at 13:26 EDT ,
== END | disposition home or self-care (01) ==
LOC: OPBI 12:24
PROVIDERS: PCP Family Medicine; Visit Provider Family Medicine
DX: Z12.31 Encounter for screening mammogram for malignant neoplasm of breast (principal); Z80.3 Family history of malignant neoplasm of breast
CPT/HCPCS: 77063; 77067

== ENCOUNTER → 2022-07-25 | Outpatient (CLI) | payer OTHER, SELFPAY ==
--- NOTE | 2022-07-25 08:53 | US_ITS ---
STUDY: ABDOMINAL ULTRASOUND - RIGHT UPPER QUADRANT REASON FOR VISIT: Female, 57 years old. SOLANO. TECHNIQUE: Ultrasound evaluation of the right upper quadrant was performed with real-time and static cordoba-scale imaging. TECHNICAL QUALITY: Adequate. COMPARISON: Comparison is made with prior study dated 11/05/2021. FINDINGS: Liver: The liver measures 15.7 cm. There is increased echogenicity consistent with fatty infiltration. The bile ducts are within normal limits. There is hepatic color flow. The direction of portal flow is hepatopetal. There is no demonstrated mass lesion. Gallbladder: Normal distended gallbladder. The gallbladder wall measures 2.0 mm. There is a negative sonographic Davis''s sign. There is no pericholecystic fluid. There are no gallstones. Common Bile Duct (C.B.D.): The common bile duct measures 3.0 mm. Pancreas: Normal size of the head, body and tail of the pancreas. There is normal echogenicity of the pancreas. There is no demonstrated pancreatic mass or cyst. Right Kidney: Normal size of the right kidney. The right kidney measures 11.7 cm x 5.1 cm x 5.8 cm. Normal renal cortex. The right cortex measures 1.7 cm. There is no demonstrated renal mass or cyst. There is no right hydronephrosis. US/Abdomen Limited IMPRESSION: Fatty infiltration of the liver. Electronically Signed: Dameon Alejandro MD at 15:19 EST ,
--- NOTE | 2022-07-25 08:53 | US_ITS ---
STUDY: ABDOMINAL ULTRASOUND - ELASTOGRAPHY REASON FOR VISIT: Female, 57 years old. SOLANO. TECHNIQUE: Liver stiffness measurements were obtained on a [employer] RS 85 ultrasound machine using a CA 1-7 probe following the SRU guidelines. 3 measurements were obtained using a 2-D-SWE method. The IQR/M was 7.5 % suggesting a quality data set. TECHNICAL QUALITY: Adequate. COMPARISON: Comparison is made with prior study done earlier today. FINDINGS: Liver: Fatty infiltration of the liver. Median liver stiffness measured 6.8 kPa. US/Elastography Parenchyma/Organ IMPRESSION: Liver stiffness measures 6.8 kPa compatible with F2-F3 (Mild to moderate liver fibrosis) Metavir score. Electronically Signed: Dameon Alejandro MD at 15:20 EST ,
== END | disposition home or self-care (01) ==
LOC: US 08:53
PROVIDERS: PCP Family Medicine; Referring Provider Internal Medicine Gastroenterology; Visit Provider Internal Medicine Gastroenterology
DX: K75.81 Nonalcoholic steatohepatitis (NASH) (principal)
CPT/HCPCS: 76705; 76981

== ENCOUNTER → 2022-11-14 | Outpatient (CLI) | payer OTHER, SELFPAY ==
[2022-11-14 12:07] LABS: Erythrocyte Sedimentation Rate 7 mm/hr (0-30)
[2022-11-14 12:13] LABS: Absolute Lymphocyte Count 1.69 X10^3/uL (0.83-4.51); Absolute Neutrophil Count 2.6 X10^3/uL (2.0-7.7); Basophil# 0.04 X10^3/uL; Basophil% 0.8 % (0-1); Eosinophil# 0.14 X10^3/uL; Eosinophils% 2.9 % (0-5); Hematocrit 45.6 % (37-47); Hemoglobin 15.1 g/dL (12.0-15.0); Lymphocyte # 1.69 X10^3/ul (0.83-4.51); Lymphocyte % 35.1 % (19-41); Mean Corp Hgb Conc 33.1 g/dL (32-36); Mean Corpuscular Hgb 29.4 pg (27.0-32.0); Mean Corpuscular Volume 88.7 fL (81-99); Mean Platelet Vol. 9.7 fl (6.2-12.0); Monocyte# 0.33 X10^3/uL; Monocyte% 6.9 % (0-10); NRBC Flagged by Analyzer 0 % (0-5); Neutrophil % 54.1 % (47-70); Platelet Count 276 K/mm3 (150-450); RBC Distribution Width CV 12.8 % (11.6-14.6); RBC Distribution Width SD 41.8 fl (35.1-43.9); Red Blood Count 5.14 M/mm3 (4.2-5.4); White Blood Count 4.8 K/mm3 (4.4-11.0)
[2022-11-14 12:30] LABS: Insulin 10.2 mU/L (2.6-37.6); Vitamin D,25 Hydroxy 35.6 ng/mL
[2022-11-14 12:35] LABS: Hemoglobin A1c 5.5 % (3.8-5.6)
[2022-11-14 12:58] LABS: ALB/GLOB Ratio 1.1 RATIO (0.9-2.4); AST(SGOT) 25 U/L (15-37); Alanine Aminotransfer ALT/SGPT 58 U/L (13-56); Albumin, Serum 4.1 g/dL (3.2-5.0); Alkaline Phosphatase 75 U/L (45-117); Anion Gap 9 (5-15); BUN 18 mg/dL (7-18); BUN/Creat Ratio 25.5 RATIO (10-20); CRP, High Sensitivity Cardiac 1.16 mg/L; Calcium,Total 9.7 mg/dL (8.5-10.1); Chloride 107 mmol/L (98-107); Cholesterol 240 mg/dL (200); Creatinine, Serum 0.71 mg/dL (0.55-1.02); EST Glomerular Filtration Rate 91 mL/min (>60); Est Glom Filt Rate - Afr Amer 110 mL/min (>60); Ferritin 152 ng/mL (8-252); GGTP 73 U/L (5-55); Globulin 3.7 g/dL (2.2-4.2); Glucose 113 mg/dL (74-106); High Density Lipoprotein 67 mg/dL; Magnesium 1.9 mg/dL (1.6-2.6); Potassium 3.6 mmol/L (3.5-5.1); Protein, Total 7.8 g/dL (6.4-8.2); Sodium Level 141 mmol/L (136-145); Triglycerides 71 mg/dL; Very Low Density Lipoprotein 14 mg/dL (5-40)
[2022-11-15 13:07] LABS: DHEA Sulfate 77.3 ug/dL (29.4-220.5)
[2022-11-15 15:52] LABS: C-Peptide 2.7 ng/mL (1.1-4.4)
== END | disposition home or self-care (01) ==
LOC: MFPLAB 09:39
PROVIDERS: PCP Family Medicine; Visit Provider Family Medicine
DX: R73.01 Impaired fasting glucose (principal); R79.89 Other specified abnormal findings of blood chemistry
CPT/HCPCS: 36415; 80053; 80061; 82306; 82627; 82728; 82977; 83036; 83090; 83525; 83735; 84100; 84443; 84681; 85025; 85652; 86141; 82626

== ENCOUNTER 2023-03-22 07:35 | Day surgery (SDC) | payer OTHER, SELFPAY ==
--- NOTE | 2023-03-22 08:07 | H&P.OPEN ---
[facility] - General General Date of Service: 03/22/23 HPI Narrative VIKAS LEDBETTER, is a 58 F who presents for screening colonoscopy. Patient last colonoscopy was August 2017 had 1 hyperplastic?benign polyp in ascending recommend follow-up in 7 years. Patient also recently had an EGD for GERD with Dr. Bowen. Patient denies any family history of colon cancer. Patient's bowel movements daily denies any blood. Patient denies any chronic abdominal pain/nausea/vomiting. Patient's reflux is controlled with change of diet and occasional apple vinegar. [facility] Medical History (Updated 03/22/23 @ 08:[address] Mary Colin MD) Back pain Chronic cough Diabetes Dietary restriction Difficulty swallowing Fatty liver Gastric reflux History of chronic cough History of hiatal hernia History of IBS Hx of colonic polyps IBS (irritable bowel syndrome) IFG (impaired fasting glucose) Non-smoker PONV (postoperative nausea and vomiting) Post-menopausal Psoriatic arthritis Seasonal allergies Wears contact lenses Home Medications Lactobacillus acidophilus 10 billion cell capsule (Probiotic) 100 mmu cells PO DAILY 03/17/23 [History Last Taken Unknown] loratadine 10 mg tablet (Claritin) 10 mg PO DAILY PRN 03/17/23 [History Last Taken Unknown] Allergy/AdvReac Type Severity Reaction Status Date / Time bupropion [From Contrave] AdvReac Nausea Verified 03/17/23 11:53 naltrexone [From Contrave] AdvReac Nausea Verified 03/17/23 11:53 phentermine [From Qsymia] AdvReac Other Verified 03/17/23 11:53 topiramate [From Qsymia] AdvReac Other Verified 03/17/23 11:53 venlafaxine [From Effexor] AdvReac Nausea Verified 03/17/23 11:53 Family History (Updated 01/27/23 @ 08:44 by Luz Skaggs) Sister Colon polyps Surgical History (Updated 03/17/23 @ 11:56 by Faye Tsai) History of back surgery History of esophagogastroduodenoscopy (EGD) History of foot surgery History of tonsillectomy History of tubal ligation Hx of colonoscopy Social History (Updated 01/27/23 @ 08:49 by Luz Skaggs) household members: spouse current occupational status: employed Smoking Status: Never smoker Past Medical/Surgical History Planned Operation Planned Operative Procedure/s: COLONOSCOPY S.O.S: No Previous Hospitalizations/Surgeries HX Hospitalizations: No HX of Surgeries: tonsils and adenoids, bmt, tubal, back and foot surgery Any Problems With Anesthesia: Yes (hives during Back Surgery/ PONV) You/Your Family Experience Fever (Hyperthermia) With Anes: No Cholinesterase deficiency: No Cardiovascular Hx Chest Pain within Last 2 months: No Hx of Irregular Heartbeat and/or Afib: No Hx Heart Attack: No Hx Congestive Heart Failure: No Hx Rheumatic Fever: No Hx Hypertension: No Hx Internal Defibrillator: No Hx Pacemaker: No Hx Cardiac Catheterization: No Hx Cardiac Surgery/Stents/Etc.: No Hx Stress Test: No Hx Pain in Legs when Walking/Leg Cramps: No Respiratory Chronic Cough: No HX of Shortness of Breath: No Hoarseness: No Hx Chronic Obstructive Pulmonary Disease (COPD): No Hx Asthma: No Hx Emphysema: No Hx Sleep Apnea: No CPAP: No Hx Respiratory Tract Infection/Cold (presently): No Do You Snore Loudly (louder than talking or can be heard): Yes Do You Often Feel Tired/ Fatigued/ Sleepy Dring Daytime?: No Has Anyone Observed You Stop Breathing During Sleep?: No Result (for STOP score): Negative Hx Smoking: No Smoking Status: Never smoker Gastrointestinal Hx Gastroesophageal Reflux: Yes Controlled With Meds: Yes Hx Gastrointestinal Disorders: Yes (ibs) Hx Gastrointestinal Bleed: No Hx Ulcer: No Hx Hiatal Hernia: Yes Difficulty Chewing/Swallowing: Yes Special diet followed at home: Yes (GF, low CHO, low dairy) Hx Unplanned Weight Loss of 20#: No HX Unplanned Weight Gain of 20#: No Neurological Hx Seizures: No HX Syncope/Blackout Spells/Unconsciousness: No Hx Transient Ischemic Attacks (TIA): No Hx Multiple Sclerosis: No Hx Parkinson's Disease: No Hx Head/Neck Injury: No Hx Headaches: No Hx Back Injury/Pain: Yes (lower) Recent Onset of Speech Difficulty: No Restless Legs: No Does patient have nerve stimulator: No Blood Disorder Hx Leukemia: No Bleeding Tendencies: No Hx Deep Vein Thrombosis: No Hx High Cholesterol: No Blood Transmitted Disease: No Hx Hepatitis: No Hx Cirrhosis: No Hx Anemia: No Hx Blood Disorders: No Reproduction Is Patient Lactating: No Hx Hysterectomy: No Hx Tubal Ligation: Yes Are You Post Menopause: No Genitourinary Hx Renal Disease: No Musculoskeletal Hx Arthritis: Yes (psorittic arthritis) Hx Rheumatoid Arthritis: No Hx Gout: No Recent Onset of an Orthopedic Problem: No Endocrine Hx Diabetes: No Thyroid Disease: No Hx Steroid Therapy: No Psycho/Social Hx Substance Use: No Hx Alcohol Use: No Hx Anxiety: No Hx Depression: No Mental Illness: No Hx Dementia: No Miscellaneous Hx Cancer: No Recent Exposure to Contagious Disease: No Hx of C-Diff: No Any Loose Teeth: No Allergies bupropion [From Contrave] Adverse Reaction (Verified 03/17/23 11:53) Nausea naltrexone [From Contrave] Adverse Reaction (Verified 03/17/23 11:53) Nausea phentermine [From Qsymia] Adverse Reaction (Verified 03/17/23 11:53) Other Paresthesias topiramate [From Qsymia] Adverse Reaction (Verified 03/17/23 11:53) Other Paresthesias venlafaxine [From Effexor] Adverse Reaction (Verified 03/17/23 11:53) Nausea Discharge Is Pt Admitted From a Usp, or a Usp: No Who Could Help: FAMILY After D/C, Where Do you Plan to Go: Return Home Physical Exam Const alert, oriented x3 and no apparent distress HEENT normocephalic and head/scalp atraumatic Resp normal respiratory effort Cardio regular rate GI soft to palpation and non-tender; Negative for non-distended Palpation: Negative for guarding Extremity no clubbing, cyanosis or edema Neuro CN's II-XII intact bilaterally Psych mental status grossly normal Assessment & Plan Assessment/Plan (1) Hx of colonic polyps: Surgery Risks - Colonoscopy I discussed with the patient the risks of the procedure: Yes Risks Include but are not Limited To: Risks include but are not limited to: Bleeding, perforation requiring further surgery, inability to complete colonoscopy requiring barium enema.
[2023-03-22] MEDS: Lactated Ringers 1,000 ML 15 ML IV (08:15)
[2023-03-22 08:16] VITALS: BP 129/70; PULSE 69; RESP 18; TEMP 36.6; O2SAT 97; BMI 34.4
[2023-03-22 09:05] VITALS: BP 121/67; BP 129/70; PULSE 88; RESP 16; TEMP 37.2; O2SAT 97
--- NOTE | 2023-03-22 09:07 | OP.CCLET_ITS ---
03/22/2023 [facility] [address] [place] [address] Re : Colonoscopy procedure for Sarah Oliveira Dear Dr. Meadows This procedure was performed on Wednesday, March 22, 2023. My impressions and recommendations are as follows: Impressions : - Non-bleeding internal hemorrhoids. - The entire examined colon is normal. - No specimens collected. Recommendations : - Discharge patient to home. - Resume previous diet. - Continue present medications. - Repeat colonoscopy in 10 years for screening purposes. My findings are described in the full procedure note, which is enclosed. If I can be of further assistance, please feel free to contact me at Doctor phone number(s): , Work: . Sincerely, MD Mary Valdivia MD 03/22/2023 9:06:19 AM This report has been signed electronically.
--- NOTE | 2023-03-22 09:07 | OP.COLON_ITS ---
Patient Name: Sarah Oliveira Procedure Date: 03/22/2023 8:26 AM Date of : 1965 Age: 58 Procedure: Colonoscopy Indications: High risk colon cancer surveillance: Personal history of colon cancer Providers: Mary Colin MD Medicines: Monitored Anesthesia Care Patient Profile: Last Colonoscopy: 2017. Complications: No immediate complications. Procedure: Pre-Anesthesia Assessment: - Prior to the procedure, a History and Physical was performed, and patient medications and allergies were reviewed. The patient's tolerance of previous anesthesia was also reviewed. The risks and benefits of the procedure and the sedation options and risks were discussed with the patient. All questions were answered, and informed consent was obtained. Prior Anticoagulants: The patient has taken no previous anticoagulant or antiplatelet agents. ASA Grade Assessment: Per anesthesia. After reviewing the risks and benefits, the patient was deemed in satisfactory condition to undergo the procedure. After I obtained informed consent, the scope was passed under direct vision. Throughout the procedure, the patient's blood pressure, pulse, and oxygen saturations were monitored continuously. The pediatric colonoscope was introduced through the anus and advanced to the cecum, identified by the appendiceal orifice, ileocecal valve and palpation. The colonoscopy was performed without difficulty. The patient tolerated the procedure well. The quality of the bowel preparation was good. Scope In: 8:36:29 AM Scope Withdrawal Time 0 hours 8 minutes 17 seconds Scope Out: 8:58:19 AM Total Procedure Duration Time 0 hours 21 minutes 50 seconds Findings: Non-bleeding internal hemorrhoids were found. The hemorrhoids were Grade I (internal hemorrhoids that do not prolapse). The entire examined colon appeared normal. Impression: - Non-bleeding internal hemorrhoids. - The entire examined colon is normal. - No specimens collected. Recommendation: - Discharge patient to home. - Resume previous diet. - Continue present medications. - Repeat colonoscopy in 10 years for screening purposes. Procedure Code(s): --- Professional --- G0105, PT, Colorectal cancer screening; colonoscopy on individual at high risk Diagnosis Code(s): --- Professional --- Z85.038, Personal history of other malignant neoplasm of large intestine K64.0, First degree hemorrhoids CPT copyright 2017 [employer]. All rights reserved. The codes documented in this report are preliminary and upon corduroy cutter operator review may be revised to meet current compliance requirements. MD Mary Vladivia MD 03/22/2023 9:06:19 AM This report has been signed electronically. Number of Addenda: 0 Note Initiated On: 03/22/2023 8:26 AM
[2023-03-22 09:10] VITALS: BP 121/69; BP 129/70; PULSE 83; RESP 16; O2SAT 96
[2023-03-22 09:15] VITALS: BP 124/63; BP 129/70; PULSE 76; RESP 16; O2SAT 95
[2023-03-22 09:20] VITALS: BP 124/63; BP 129/70; PULSE 78; RESP 16; TEMP 37.3; O2SAT 95
[2023-03-22 09:40] VITALS: BP 129/70
== END 2023-03-22 09:53 | disposition home or self-care (01) ==
LOC: EN 07:37 → AC 07:38
PROVIDERS: PCP Family Medicine; Referring Provider Family Medicine; Visit Provider Surgery
PROC: 0DJD8ZZ Inspection of Lower Intestinal Tract, Via Natural or Artificial Opening Endoscopic (ICD-10-PCS; CPT 45378; principal; 2023-03-22 08:40)
DX: Z12.11 Encounter for screening for malignant neoplasm of colon (principal); K64.0 First degree hemorrhoids; K75.81 Nonalcoholic steatohepatitis (NASH); Z86.010 Personal history of colon polyps; Z85.038 Personal history of other malignant neoplasm of large intestine; Z79.899 Other long term (current) drug therapy
CPT/HCPCS: G0105; J7120; J2405

== ENCOUNTER → 2023-07-14 | Outpatient (CLI) | payer OTHER, SELFPAY ==
--- NOTE | 2023-07-14 13:10 | BI_ITS ---
MAMMOGRAPHY - BILATERAL SCREENING REASON FOR EXAM: Female, 58 years old. Routine annual screening examination. PERTINENT HISTORY: Grandmother with breast cancer. Aunts with breast cancer. TECHNIQUE: Digital bilateral breast zoya (3D mammographic acquisition) in the CC and MLO projections. 2-D mediolateral oblique (MLO) and craniocaudad (CC) views of both breasts were obtained. CAD: Full Field Digital Mammography with Computer Added Detection was performed. COMPARISON: Comparison is made with prior study dated June 02, 2022 and January 11, 2021. FINDINGS: Breast Composition: The breasts are almost entirely fatty. There are no dominant masses or suspicious calcifications. No other significant abnormalities are identified. There has been no significant change since the prior study. BI/SCRN MAMM (CAD)W/ZOYA BILAT IMPRESSION: Stable bilateral screening mammogram. Yearly follow-up mammogram recommended. (A) ASSESSMENT CATEGORY: BIRADS Category 1: Negative. A letter regarding these results will be sent to the patient by the facility within 30 days. Approximately 10% of breast cancers are not detected by mammography. A normal mammogram should not delay biopsy of a clinically suspicious abnormality. [id number] Electronically Signed: Dameon Alejandro MD at 14:08 EST ,
== END | disposition home or self-care (01) ==
LOC: OPBI 13:09
PROVIDERS: PCP Family Medicine; Referring Provider Family Medicine; Visit Provider Family Medicine
DX: Z12.31 Encounter for screening mammogram for malignant neoplasm of breast (principal)
CPT/HCPCS: 77063; 77067

== ENCOUNTER → 2023-08-30 | Outpatient (CLI) | payer OTHER, SELFPAY ==
[2023-08-30 12:29] LABS: Absolute Lymphocyte Count 1.61 X10^3/uL (0.83-4.51); Absolute Neutrophil Count 3.4 X10^3/uL (2.0-7.7); Basophil# 0.05 X10^3/uL; Basophil% 0.9 % (0-1); Eosinophil# 0.16 X10^3/uL; Eosinophils% 2.8 % (0-5); Hematocrit 44.1 % (37-47); Hemoglobin 14.4 g/dL (12.0-15.0); Lymphocyte # 1.61 X10^3/ul (0.83-4.51); Mean Corp Hgb Conc 32.7 g/dL (32-36); Mean Corpuscular Volume 88.7 fL (81-99); Mean Platelet Vol. 9.4 fl (6.2-12.0); Monocyte# 0.48 X10^3/uL; Monocyte% 8.3 % (0-10); NRBC Flagged by Analyzer 0 % (0-5); Neutrophil # 3.43 X10^3/uL (2.7-7.7); Neutrophil % 59.7 % (47-70); Platelet Count 310 K/mm3 (150-450); RBC Distribution Width CV 12.3 % (11.6-14.6); RBC Distribution Width SD 39.4 fl (35.1-43.9); Red Blood Count 4.97 M/mm3 (4.2-5.4); White Blood Count 5.8 K/mm3 (4.4-11.0)
[2023-08-30 13:10] LABS: ALB/GLOB Ratio 1.1 RATIO (0.9-2.4); AST(SGOT) 31 U/L (15-37); Alanine Aminotransfer ALT/SGPT 90 U/L (13-56); Albumin, Serum 3.9 g/dL (3.2-5.0); Alkaline Phosphatase 89 U/L (45-117); Anion Gap 6 (5-15); BUN 25 mg/dL (7-18); BUN/Creat Ratio 37.8 RATIO (10-20); Calcium,Total 9.3 mg/dL (8.5-10.1); Chloride 107 mmol/L (98-107); Creatinine, Serum 0.66 mg/dL (0.55-1.02); EST Glomerular Filtration Rate 98 mL/min (>60); Est Glom Filt Rate - Afr Amer 118 mL/min (>60); Globulin 3.6 g/dL (2.2-4.2); Glucose 120 mg/dL (74-106); Magnesium 2.2 mg/dL (1.6-2.6); Potassium 4.2 mmol/L (3.5-5.1); Protein, Total 7.5 g/dL (6.4-8.2); Sodium Level 141 mmol/L (136-145)
== END | disposition home or self-care (01) ==
PROVIDERS: PCP Family Medicine; Visit Provider Family Medicine
DX: K58.9 Irritable bowel syndrome, unspecified (principal); E55.9 Vitamin D deficiency, unspecified
CPT/HCPCS: 36415; 80053; 82306; 83735; 85025

== ENCOUNTER → 2024-04-09 | Outpatient (CLI) | payer OTHER, SELFPAY ==
[2024-04-09 12:20] LABS: ALB/GLOB Ratio 1.1 RATIO (0.9-2.4); AST(SGOT) 52 U/L (15-37); Alanine Aminotransfer ALT/SGPT 125 U/L (13-56); Albumin, Serum 3.7 g/dL (3.2-5.0); Alkaline Phosphatase 84 U/L (45-117); Anion Gap 8 (5-15); BUN 21 mg/dL (7-18); Calcium,Total 9.1 mg/dL (8.5-10.1); Chloride 107 mmol/L (98-107); Cholesterol 251 mg/dL (200); Creatinine, Serum 0.62 mg/dL (0.55-1.02); EST Glomerular Filtration Rate 105 mL/min (>60); Est Glom Filt Rate - Afr Amer 128 mL/min (>60); Globulin 3.3 g/dL (2.2-4.2); Glucose 121 mg/dL (74-106); High Density Lipoprotein 80 mg/dL; Potassium 3.9 mmol/L (3.5-5.1); Sodium Level 140 mmol/L (136-145); Triglycerides 69 mg/dL; Very Low Density Lipoprotein 14 mg/dL (5-40)
[2024-04-10 08:14] LABS: GGTP 128 IU/L (0-60)
== END | disposition home or self-care (01) ==
LOC: MFPLAB 08:02
PROVIDERS: PCP Family Medicine; Visit Provider Family Medicine
DX: K76.0 Fatty (change of) liver, not elsewhere classified (principal); E78.5 Hyperlipidemia, unspecified
CPT/HCPCS: 36415; 80053; 80061; 82977

== ENCOUNTER → 2024-06-03 | Outpatient (CLI) | payer OTHER, SELFPAY ==
--- NOTE | 2024-06-03 09:18 | RAD_ITS ---
STUDY: X-RAY - RIGHT FOOT CLINICAL: Female, 59 years old. Lateral foot pain. No known injury. TECHNIQUE: 3 view(s) of the foot. COMPARISON: None. FINDINGS: Small plantar spur. Normal visualized subtalar, talonavicular, calcaneocuboid, tarsal and tarsometatarsal articulations. Normal metatarsi. Normal metatarsophalangeal joint of the great toe. Normal tibial and fibular sesamoid bones. Normal interphalangeal joint of the great toe. Normal phalanges of the great toe. Normal second through fifth metatarsophalangeal joints. Normal interphalangeal joints and phalanges of the lesser toes. Soft tissue swelling overlying the fifth metatarsal. RAD/Foot min 3 Views IMPRESSION: Mild degree of soft tissue swelling overlying the fifth metatarsal. Electronically Signed: Dameon Alejandro MD at 10:47 EDT ,
== END | disposition home or self-care (01) ==
PROVIDERS: PCP Family Medicine; Referring Provider Physician Assistant Surgical; Visit Provider Physician Assistant Surgical
DX: M79.671 Pain in right foot (principal)
CPT/HCPCS: 73630

== ENCOUNTER → 2024-07-16 | Outpatient (CLI) | payer OTHER, SELFPAY ==
--- NOTE | 2024-07-16 09:54 | BI_ITS ---
MAMMOGRAPHY - BILATERAL SCREENING REASON FOR EXAM: Female, 59 years old. Routine annual screening examination. PERTINENT HISTORY: Grandmother with breast cancer. Aunts with breast cancer. TECHNIQUE: Digital bilateral breast zoya (3D mammographic acquisition) in the CC and MLO projections. 2-D mediolateral oblique (MLO) and craniocaudad (CC) views of both breasts were obtained. CAD: Full Field Digital Mammography with Computer Added Detection was performed. COMPARISON: Comparison is made with prior examination dated July 14, 2023 and June 02, 2022. FINDINGS: Breast Composition: The breasts are almost entirely fatty. There are no dominant masses or suspicious calcifications. No other significant abnormalities are identified. There has been no significant change since the prior study. BI/SCRN MAMM (CAD)W/ZOYA BILAT IMPRESSION: Stable bilateral screening mammogram. Yearly follow-up mammogram recommended. (A) ASSESSMENT CATEGORY: BIRADS Category 1: Negative. A letter regarding these results will be sent to the patient by the facility within 30 days. Approximately 10% of breast cancers are not detected by mammography. A normal mammogram should not delay biopsy of a clinically suspicious abnormality. [id number] Electronically Signed: Dameon Alejandro MD at 11:07 EST ,
== END | disposition home or self-care (01) ==
PROVIDERS: PCP Family Medicine; Referring Provider Family Medicine; Visit Provider Family Medicine
DX: Z12.31 Encounter for screening mammogram for malignant neoplasm of breast (principal)
CPT/HCPCS: 77063; 77067

== ENCOUNTER → 2024-07-30 | Outpatient (CLI) | payer OTHER, SELFPAY ==
[2024-08-04 13:06] LABS: HPV APTIMA, High Risk Negative (Negative)
[2024-08-05 10:48] LABS: HPV Reflexed? YES, CHARGE PATIENT
== END | disposition home or self-care (01) ==
PROVIDERS: PCP Family Medicine; Referring Provider Nurse Practitioner Family; Visit Provider Nurse Practitioner Family
DX: Z12.4 Encounter for screening for malignant neoplasm of cervix (principal)
CPT/HCPCS: 87624; 88175; G0145

== ENCOUNTER → 2025-02-14 | Outpatient (CLI) | payer OTHER, SELFPAY ==
--- NOTE | 2025-02-14 13:50 | CT_ITS ---
PROCEDURE: LIMITED CHEST CT CARDIAC ONLY 02/14/2025 REASON FOR EXAM: DYSLIPIDEMIA TECHNIQUE: LIMITED CHEST CT CARDIAC ONLY Coronal and Sagittal reconstruction series were provided. CONTRAST: None. One or more dose reduction techniques were used (e.g., Automated exposure control, adjustment of the mA and/or kV according to patient size, use of iterative reconstruction technique). RADIATION DOSE SUMMARY: CTDlvol: 12.19 mGy DLP: 243.97 mGycm COMPARISON: 07/21/2021. FINDINGS: Small sliding hiatal hernia. Normal unenhanced main pulmonary artery and right and left pulmonary arteries. Normal bilateral peripheral pulmonary arteries. Normal thoracic aorta and visualized great vessels. There is no demonstrated aortic aneurysm. Normal heart and pericardium. Normal mediastinum. Normal hilar regions. Normal visualized trachea and bronchi. The lungs are well expanded. Normal pulmonary parenchyma. Normal pleura. Mild diffuse spondylosis. Normal visualized upper abdomen. CT/Limited Chest CT Cardiac Only IMPRESSION: Small sliding hiatal hernia. Otherwise, unremarkable exam. Reading Location: [place] [address]
--- NOTE | 2025-02-17 10:24 | CA.SCORE ---
Calcium Scoring Date of Study:: 02/14/25 Indications Indications: Dyslipidemia Coronary Calcium Scoring: High-resolution Computed Tomographic imaging of the chest was performed on [02/14/2025], with particular attention paid to the coronary arteries. Images from the examination were analyzed for the presence and extent of coronary artery calcification , using coronary calcium quantification software. The patient tolerated the procedure well and there were no complications. The results of the coronary calcification analysis are provided below. Findings Coronary Artery Left Main (LM): 0 Left Anterior Descending (LAD): 0 Left Circumflex (LCX): 0 Right Coronary Artery (RCA): 0 Total Agatston Score: 0 Percentile Rankin Calcium Scoring Interpretation: Different methods to categorize the overall amount of coronary plaque. Overall amount CAC SIS Visual of coronary plaque P1 Mild -100 <2 1-2 vessels with mild amount of plaque P2 Moderate 101-300 3-4 1-2 vessels with moderate amount, 3 vessels with mild amount of plaque P3 Severe 301-999 5-7 3 vessels with moderate amount, 1 vessel with severe amount of plaque P4 Extensive >1000 >8 2-3 vessels with severe amount of plaque Conclusion: No atherosclerotic plaquing noted.
== END | disposition home or self-care (01) ==
LOC: CT 13:44
PROVIDERS: PCP Family Medicine; Referring Provider Family Medicine; Visit Provider Family Medicine
DX: E78.5 Hyperlipidemia, unspecified (principal)
CPT/HCPCS: 75571; 76380

== ENCOUNTER → 2025-07-07 | Outpatient (CLI) | payer OTHER, SELFPAY ==
[2025-07-07 12:17] LABS: Hematocrit 40.4 % (37-47); Hemoglobin 14.0 g/dL (12.0-15.0); Immature Granulocytes Count 0.010 X10^3/uL (0.0-0.0); Mean Corp Hgb Conc 34.7 g/dL (32-36); Mean Corpuscular Volume 86.5 fL (81-99); Mean Platelet Vol. 9.0 fl (6.2-12.0); NRBC Flagged by Analyzer 0 % (0-5); Platelet Count 275 K/mm3 (150-450); RBC Distribution Width CV 12.4 % (11.6-14.6); RBC Distribution Width SD 39.4 fl (35.1-43.9); Red Blood Count 4.67 M/mm3 (4.2-5.4); White Blood Count 5.3 K/mm3 (4.4-11.0)
[2025-07-07 15:58] LABS: AST(SGOT) 26 U/L (<=31); Alanine Aminotransfer ALT/SGPT 46 U/L (<=34); Albumin, Serum 4.5 g/dL (3.5-5.0); Alkaline Phosphatase 77 U/L (35-104); Anion Gap 10 (5-15); BUN 18 mg/dL (4-19); BUN/Creat Ratio 29.1 RATIO (10-20); Calcium,Total 10.0 mg/dL (7.6-11.0); Carbon Dioxide 26.7 mmol/L (21.0-32.0); Chloride 104 mmol/L (98-108); Globulin 2.9 g/dL (2.2-4.2); Glucose 114 mg/dL (70-99); Potassium 4.2 mmol/L (3.3-5.1); Vitamin D,25 Hydroxy 33.8 ng/mL (30-100)
[2025-07-09 07:07] LABS: GGTP 76 IU/L (0-60)
== END | disposition home or self-care (01) ==
LOC: MFPLAB 11:16
PROVIDERS: PCP Family Medicine; Visit Provider Family Medicine
DX: R79.89 Other specified abnormal findings of blood chemistry (principal); L40.50 Arthropathic psoriasis, unspecified; E55.9 Vitamin D deficiency, unspecified; K58.9 Irritable bowel syndrome, unspecified
CPT/HCPCS: 36415; 80053; 82306; 82977; 84443; 85025; 85652

== ENCOUNTER → 2025-07-31 | Outpatient (CLI) | payer OTHER, SELFPAY ==
--- NOTE | 2025-07-31 15:44 | BD_ITS ---
PROCEDURE: DEXA BONE DENSITY STUDY 07/31/2025 REASON FOR EXAM: F, age 60 y/o . Concern for osteoporosis TECHNIQUE: Procedure Code: BDDBD Modality: DX Procedure: DEXA BONE DENSITY STUDY COMPARISON: Reviewed FINDINGS: BMD and T-SCORES Lumbar spine: 0.922 g/cm2, T-score -1.1 Left femoral neck: 0.725 g/cm2, T-score -1.1 The World Health Organization has defined the following categories based on bone density: Normal bone density: T-score equal to or greater than -1.0 Osteopenia: T-score between -1.0 and -2.5 Osteoporosis: T-score equal to or less than -2.5 FRAX (or Comparable) Fracture Risk Assessment: 10 Year Probability of Fracture: Major Osteoporotic Fracture: 6% Hip Fracture: 0.3% (Note: FRAX is not to be reported in setting of normal range bone density, osteoporosis on DEXA, known history of osteoporosis, prior osteoporotic hip or vertebral fracture, or for any patient undergoing pharmacological treatment for bone loss.) The National Osteoporosis Foundation (NOF) recommends pharmacological treatment for patients with a FRAX 10-year risk of 3% or higher for a hip fracture, or 20% or higher for a major osteoporotic fracture, to prevent osteoporosis and reduce fracture risk. BD/Dexa Bone Density Study IMPRESSION: OSTEOPENIA. Recommend follow-up as clinically warranted. Reading Location: [facility]
--- NOTE | 2025-07-31 15:44 | BI_ITS ---
EXAM: SCRN MAMM (CAD)W/ZOYA BILAT DATE: 07/31/2025 CLINICAL HISTORY: F, Age 60 y/o , SCREENING TECHNIQUE: Procedure Code: BISMWCADBTOM Modality: MG Procedure: SCRN MAMM (CAD)W/ZOYA BILAT COMPARISON: Prior exam(s) dated 07/16/2024, 07/14/2023, 06/02/2022. FINDINGS: TISSUE DENSITY: The breasts are almost entirely fatty. Bilateral Breast Mammographic Findings: No significant masses, calcifications or other abnormalities are identified. BI/SCRN MAMM (CAD)W/ZOYA BILAT IMPRESSION: There is no mammographic evidence of malignancy. OVERALL FINAL ASSESSMENT BI-RADS 1: NEGATIVE. RECOMMENDATION: Routine annual follow-up in 1 Year Additional Recommendation none A letter with findings and recommendations will be mailed to the patient. Reading Location: [id number]
== END | disposition home or self-care (01) ==
LOC: OPBD 15:42
PROVIDERS: PCP Family Medicine; Referring Provider Family Medicine; Visit Provider Family Medicine
DX: Z12.31 Encounter for screening mammogram for malignant neoplasm of breast (principal); L40.50 Arthropathic psoriasis, unspecified; Z78.0 Asymptomatic menopausal state
CPT/HCPCS: 77063; 77067; 77080

== ENCOUNTER 2025-08-10 12:08 | Emergency (ER) | payer OTHER, SELFPAY ==
[2025-08-10 12:09] VITALS: BP 143/78; PULSE 95; RESP 16; TEMP 36.2; O2SAT 98; BMI 36.7
--- NOTE | 2025-08-10 12:19 | EX.ED.DYSGE1 ---
HPI History of Present Illness Chief Complaint: Other, Pain/Inj PFSH PFSH Medical History Post-menopausal Fatty liver Seasonal allergies History of IBS Chronic cough PONV (postoperative nausea and vomiting) Psoriatic arthritis IFG (impaired fasting glucose) Hx of colonic polyps Wears contact lenses Diabetes Back pain Dietary restriction Difficulty swallowing History of hiatal hernia Gastric reflux Non-smoker History of chronic cough IBS (irritable bowel syndrome) Home Medications ?Medication ?Instructions ?Recorded ?Last Taken ?Type Lactobacillus acidophilus 10 100 mmu cells PO DAILY 03/17/23 Unknown History billion cell capsule (Probiotic) loratadine 10 mg tablet (Claritin) 10 mg PO DAILY PRN 03/17/23 Unknown History amoxicillin 500 mg tablet 500 mg PO TID #30 tabs 11/06/24 Unknown Rx levofloxacin 500 mg tablet 500 mg PO DAILY 7 days #7 tabs 08/10/25 Unknown Rx omeprazole magnesium 10 mg oral 20 mg PO DAILY 30 days #30 ea 08/10/25 Unknown Rx suspension,delayed release (Prilosec) Allergy/AdvReac Type Severity Reaction Status Date / Time cholestyramine Allergy Intermediate Rash Verified 08/10/25 12:12 bupropion (From Contrave) AdvReac Nausea Verified 08/10/25 12:11 naltrexone (From Contrave) AdvReac Nausea Verified 08/10/25 12:11 phentermine (From Qsymia) AdvReac Other Verified 08/10/25 12:11 topiramate (From Qsymia) AdvReac Other Verified 08/10/25 12:11 venlafaxine (From Effexor) AdvReac Nausea Verified 08/10/25 12:11 Family History Sister Colon polyps Surgical History History of back surgery History of esophagogastroduodenoscopy (EGD) Hx of colonoscopy History of foot surgery History of tonsillectomy History of tubal ligation Social History household members: spouse current occupational status: employed Smoking Status: Never smoker EXAM Physical Exam Const Vital Signs: 08/10/25 12:09 08/10/25 12:29 08/10/25 13:06 Temperature 97.1 F L Temperature Source Temporal Pulse Rate 95 Respiratory Rate 16 Respiratory Effort Normal Non-Labored Respiratory Pattern Normal Blood Pressure 143/78 H Blood Pressure Mean 99 Pulse Ox 98 99 Oxygen Delivery Method Room Air Room Air 08/10/25 14:00 08/10/25 14:14 Temperature 98.3 F Temperature Source Pulse Rate 79 79 Respiratory Rate 14 14 Respiratory Effort Respiratory Pattern Blood Pressure 128/66 H 128/66 H Blood Pressure Mean 86 86 Pulse Ox 99 99 Oxygen Delivery Method MDM MDM MDM Narrative Medical decision making narrative: HISTORY OF PRESENT ILLNESS: Chief complaint: Esophageal spasm 60-year-old female history of [place], GERD, notes that she woke up at approximately 5 AM had coffee and 1 protein bar she felt the protein bar become stuck in her esophagus. Notes she was able to spit up the said piece of the protein bar but afterwards had had hematemesis. Notes ongoing esophageal/chest discomfort. Denies nathan chest pain or shortness of breath. The patient denies recent surgery in the last 4 weeks or immobilization in the last 3 days, denies previous diagnosis of DVT or PE, hemoptysis, unilateral leg swelling or malignancy with treatment the last 6 months or palliative. No estrogen use noted. Patient denies sudden onset of pain, no tearing sensation, no migratory symptoms, no new numbness, weakness or loss of sensation. Patient denies family history or personal history of Connective tissue disorders (Marfan's Syndrome, George Danlos etc). Patient denies recent cough fever or chills. REVIEW OF SYSTEMS: Pertinent positives: Esophageal spasms Pertinent negatives: As per HPI PHYSICAL EXAM: Nursing triage notes reviewed, Vital signs reviewed Constitutional: please see mdm HENT: MMM Eyes: Pupils equal round and reactive to light, Extraocular muscles intact Neck: No stridor, no JVD, full neck ROM Lungs: Clear to auscultation, No wheezing or rales. No increased work of breathing, no conversational dyspnea, no accessory muscle use, no nasal flaring. No respiratory distress noted Heart: Regular rate and rhythm, No murmurs, No rubs and No gallops, 2+ distal pulses (radial, femoral, posterior tibial) in all extremities Abdomen: Soft, there is no tenderness, rigidity, rebound or guarding, no obvious peritoneal signs, no palpable pulsatile abdominal masses, no auscultated abdominal bruit : No CVAT Extremities: No edema Neuro: No new focal neurological deficits, cranial nerves II through XII intact, 5/5 strength in all present extremities. Intact sensation to light touch in all present extremities, 2+ reflexes bilateral patella tendons. Skin: No rash or lesions noted MEDICAL DECISION MAKING: Chief Complaint: please see HPI External records reviewed: Reviewed prior upper GI endoscopy performed by Dr. Bowen. Showed a moderate-sized scaring, esophagitis, few gastric polyps, Factors affecting care: As per HPI Social determinants of health: none History obtained from others: Consults: none [facility] Narrative: Patient was initially hemodynamically stable, afebrile and nontoxic-appearing. Exam with no focal cardiopulmonary abnormalities. No focus of VTE, CHF or dissection. I considered the following differential diagnosis: Esophageal spasm, ACS, PE, pneumonia, GERD amongst others I obtained broad lab and imaging work to further determine if the patient was suffering from a life-threatening etiology. Initially treat the patient with a GI cocktail, IV Pepcid as well as a 0.5 mg IV Versed for esophageal relaxation. Also assessed the patient 1 L normal saline ALL IMAGES (IF OBTAINED) HAVE BEEN PERSONALLY REVIEWED AND INTERPRETED BY MYSELF. EKG with normal sinus rhythm rate 85, left ax deviation, normal levels, no STEMI, no sign of right heart strain The patient's chest x-ray was read reviewed personally so showed evidence of possible aspiration pneumonia process was pneumonitis but will cover antibiotics. CBC with leukocytosis suggestive of systemic relation, no anemia or thrombocytopenia BMP without evidence of significant electrolyte abnormalities, no anion gap, no acute kidney injury. High-sensitivity troponin is negative, no evidence of myocardial ischemia The synthesis of the patient's history, physical exam, labs images suggest likely esophageal irritation from likely esophageal foreign body has since passed spontaneously. There is also evidence of aspiration pneumonia. Patient will be given oral antibiotics and a prescription for a PPI. She will require urgent GI follow-up. No indication for emergent GI evaluation or transfer at this time. Case discussed with patient and family who agree with plan. Agreed to follow-up with GI physician. Strict return precautions were discussed The patient and/or family, caregivers express understanding. The patient and/or family, caregivers agrees with the plan. Shared decision making: I will have a discussion with the patient and or visitors regarding risk/benefits of further testing or admission. They will be made aware of of the risk/benefits inherent in this decision they will be given the opportunity to voice understanding. Total critical care time today provided was at least 0 minutes. This excludes separately billable procedures. Critical care time (if documented) is secondary to the patient having high probability of clinically significant/life threatening deterioration in the patient's condition which required my urgent intervention. Impression: 1. Esophageal spasm 2. Aspiration pneumonia Dispo: Discharge home This note was generated with Graphicly dictation software. It may contain incorrect words, spelling, and punctuation that were not noted in review of the chart prior to signing. Lab Data Labs: Laboratory Results - last 24 hr 08/10/25 12:46 WBC 12.5 H RBC 4.84 Hgb 14.2 Hct 43.0 MCV 88.8 MCH 29.3 MCHC 33.0 RDW Std Deviation 40.2 RDW Coeff of Olga 12.3 Plt Count 261 MPV 8.8 Immature Gran % (Auto) 0.500 Neut % (Auto) 85.9 H Lymph % (Auto) 8.2 L [place] % (Auto) 5.0 Eos % (Auto) 0.2 Baso % (Auto) 0.2 Absolute Neuts (auto) 10.7 H Absolute Lymphs (auto) 1.03 Nucleated RBC % 0 Sodium 140 Potassium 4.9 Chloride 104 Carbon Dioxide 26.0 Anion Gap 11 BUN 19 Creatinine 0.63 L Estim Creat Clear Calc 108.78 Est GFR (MDRD) Non-Af 102 BUN/Creatinine Ratio 29.5 H Glucose 159 H Calcium 9.8 Troponin T High Sens < 6 Radiography Diagnostic Testing: Clinical Impression(s) from Imaging Studies Chest X-Ray 08/10/25 13:00 IMPRESSION: Right lower lobe opacity likely atelectasis although aspiration or pneumonia not excluded. Mild pulmonary vascular congestion. Reading Location: [facility] [address] Discharge Plan Triage Chief Complaint: Other, Pain/Inj ED Provider: Talat Lazo Dx/Rx/DC Orders Instructions: ED Esophageal Spasm Prescriptions: New levofloxacin 500 mg tablet 500 mg PO DAILY 7 Days Qty: 7 0RF Prilosec 10 mg susp,delayed release for recon 20 mg PO DAILY 30 Days Qty: 30 0RF No Action amoxicillin 500 mg tablet 500 mg PO TID Qty: 30 0RF loratadine [Claritin] 10 mg tablet 10 mg PO DAILY PRN Probiotic 10 billion cell capsule 100 mmu cells PO DAILY Primary Care Provider: Siddhartha Meadows Referrals: Siddhartha Meadows MD [Primary Care Provider, Family Practice] Joseph Bowen DO [[facility] Staff - Active Staff, Gastroenterology] Activity Restrictions/Additional Instructions: Thank you for trusting us with your care today! Your labs images are reassuring. Suspect you are suffering from esophagitis or irritation of your esophagus from past food foreign body/food impaction. Your x-ray showed signs of pulmonary or lung inflammation either aspiration pneumonitis versus early aspiration pneumonia. Please take antibiotics as prescribed to your course is complete Please begin taking Prilosec to further decrease acid production and improve esophageal pain. Please take Tylenol (2 pills, 650 mg), ibuprofen (2 pills, 400 mg) every 6 hours as needed for pain and fever control. Please return to the emergency department if your symptoms change or worsen. Please follow with gastroenterology (Dr. Bowen) for further outpatient evaluation and management. Print Language: Armenian Disposition Disposition: Home, Self Care Discharge Date/Time: 08/10/25 14:30
--- NOTE | 2025-08-10 12:29 | EKG12_ITS ---
Test Reason : ARRYTH Blood Pressure : */* mmHG Vent. Rate : 85 BPM Atrial Rate : 85 BPM P-R Int : 148 ms QRS Dur : 80 ms QT Int : 380 ms P-R-T Axes : 47 -1 9 degrees QTcB Int : 452 ms Normal sinus rhythm Nonspecific ST abnormality Abnormal ECG Confirmed by FREEMAN PARRY, BHARATH ([id number]), food editor ANSELMO TONG ([id number]) on 08/12/2025 1:17:51 PM Referred By: Confirmed By: BHARATH MILLARD MD
[2025-08-10] MEDS: 0.9% Normal Saline (1000mL) 1,000 ML 999 ML IV (12:39)
[2025-08-10] MEDS: Lidocaine 2% Viscous15 ML UDC 15 ML PO (12:48)
[2025-08-10] MEDS: Famotidine 200 MG/20 ML MDV 20 MG in 0.9% Normal Saline (Pres. free 8 ML 300 MG IV (12:48)
[2025-08-10] MEDS: Midazolam 2 MG/2 ML Syringe 0.5 MG IV (12:48)
--- NOTE | 2025-08-10 13:00 | RAD_ITS ---
PROCEDURE: CHEST 1 VIEW (PORTABLE) 08/10/2025 REASON FOR EXAM: CHEST PAIN TECHNIQUE: Frontal view of the chest. FINDINGS: Right lower lobe opacity likely atelectasis although aspiration or pneumonia not excluded. Mild pulmonary vascular congestion. No pleural effusion or pneumothorax. Cardiac silhouette is stable. No acute fractures. RAD/Chest 1 View (Portable) IMPRESSION: Right lower lobe opacity likely atelectasis although aspiration or pneumonia no t excluded. Mild pulmonary vascular congestion. Reading Location: [id number]
--- OUTSIDE RECORDS SUMMARY | 2025-08-10 13:04 | XMS RPT_ITS | CCD ---
Author Organization [facility] Care Team Providers Care Powerhouse Laborer Name Role Phone Dr. Dank Meadows Primary Care Provider Dr. Dank Meadows Referring Provider Dr. Dank Meadows Other Provider Dr. Dank Arambula Other Provider Dr. Mani Agudelo Attending Provider FriendDr. Ruiz Attending Provider FriendDr. Ruiz Other Provider Dr. Dank Meadows Primary Care Provider [phone] Dr. Dank Meadows Referring Provider Dr. Joseph Bowen Attending Provider Dr. Dank Meadows Primary Care Provider [phone] Dr. Dank Meadows Referring Provider Dr. Mary Colin Attending Provider Dr. Mary Colin Other Provider Dr. Siddhartha Meadows MD Primary Care Provider Dr. Siddhartha Meadows MD Referring Provider John Scruggs Attending Provider Dr. Siddhartha Meadows MD Attending Provider Dr. Siddhartha Meadows MD Other Provider Taylor PARRY, Dr. Lopez Attending Provider Siddhartha Meadows Primary Care Unavailable Siddhartha Meadows Attending Unavailable Siddhartha Meadows Referring Unavailable Justina TECHNICAL DEVELOPER, Dulce Attending Unavailable Justina TECHNICAL DEVELOPER, Dulce Referring Unavailable Dori, Siddhartha Primary Care Unavailable Siddhartha Meadows Attending Unavailable Dori, Alexer Referring Unavailable Ranney, Christtomier Primary Care Unavailable Siddhartha Meadows Attending Unavailable Dori, Christtomier Primary Care Unavailable John Vazquez Attending Unavailable Siddhartha Meadows Referring Unavailable [facility] Primary [facility] Unavailable Siddhartha Meadows Consulting Unavailable John Vazquez Attending Unavailable Siddhartha Meadows Referring Unavailable Dori, Alexer Primary Care Unavailable John Scruggs Attending Unavailable Siddhartha Meadows Referring Unavailable Siddhartha Meadows Primary Care Unavailable Allergies Allergy Classification Reported Allergen(s) Allergy Type Date of Onset Reaction(s) Facility (3 sources) buPROPion Drug Allergy 03-17-2023 [facility] (3 sources) Naltrexone Drug Allergy 03-17-2023 [facility] (3 sources) Phentermine Drug Allergy 03-17-2023 [facility] Comment on above: Paresthesias (3 sources) topiramate Drug Allergy 03-17-2023 [facility] Comment on above: Paresthesias (3 sources) venlafaxine Drug Allergy 03-17-2023 [facility] (1 source) buPROPion Drug Allergy 11-06-2024 [facility] (1 source) Naltrexone Drug Allergy 11-06-2024 [facility] (1 source) Phentermine Drug Allergy 11-06-2024 [facility] (1 source) topiramate Drug Allergy 11-06-2024 [facility] (1 source) venlafaxine Drug Allergy 11-06-2024 [facility] Medications Current Medications Medication Drug Class(es) Dates Sig (Normalized) Sig (Original) Albuterol Sulfate (7 sources) beta2-Adrenergic Agonist Start: 07-21-2021 take 1 puff(s) by inhalation every four hours as needed Albuterol Sulfate (Ventolin Hfa) 90 mcg/actuation HFA aerosol inhaler Active 1 - 2 PUFF INHALATION EVERY 4 HOURS NEEDED July 21, 2021 3:13pm Start: 07-21-2021 End: 03-29-2022 Albuterol Sulfate (Ventolin Hfa) 90 mcg/actuation HFA aerosol inhaler Discontinued 1 - 2 NMA INHALATION EVERY 4 HOURS NEEDED as needed for Wheezing July 21, 2021 1:00am March 29, 2022 8:29am Start: 07-21-2021 End: 03-29-2022 take 1 puff(s) by inhalation every four hours as needed Albuterol Sulfate (Ventolin Hfa) 90 mcg/actuation HFA aerosol inhaler Discontinued 1 - 2 PUFF INHALATION EVERY 4 HOURS NEEDED July 21, 2021 12:00am March 29, 2022 7:29am amoxicillin 500 mg oral tablet (1 source) Penicillin-class Antibacterial Start: 11-06-2024 take 1 tablet by mouth three times daily Amoxicillin 500 mg tablet Active 500 mg PO THREE TIMES A DAY November 06, 2024 12:00am lactobacillus acidophilus [id number] unt oral capsule (3 sources) Start: 03-17-2023 take 10 capsules by mouth once daily Lactobacillus Acidophilus (Probiotic) 10 billion cell capsule Active 100 NMA PO DAILY March 17, 2023 12:00am loratadine 10 mg oral tablet (9 sources) Start: 03-17-2023 take 1 tablet by mouth once daily as needed Loratadine (Claritin) 10 mg tablet Active 10 mg PO DAILY NEEDED March 17, 2023 12:00am Start: 03-29-2022 End: 01-27-2023 take 1 tablet by mouth once daily Loratadine 10 mg tablet Discontinued 10 mg PO DAILY March 29, 2022 12:00am January 27, 2023 8:53am Multivitamin (Daily Multiple Vitamin) 1 EACH tablet (7 sources) Start: 09-07-2017 take 1 tablet by mouth once daily Multivitamin (Daily Multiple Vitamin) 1 EACH tablet Active 1 EACH PO DAILY September 07, 2017 2:31pm Start: 09-07-2017 End: 03-29-2022 take 1 tablet by mouth once daily Multivitamin (Daily Multiple Vitamin) 1 EACH tablet Discontinued 1 NMA PO DAILY September 07, 2017 1:00am March 29, 2022 8:30am Start: 09-07-2017 End: 03-29-2022 take 1 tablet by mouth once daily Multivitamin (Daily Multiple Vitamin) 1 EACH tablet Discontinued 1 EACH PO DAILY September 07, 2017 12:00am March 29, 2022 7:30am Start: 09-07-2017 End: 03-29-2022 take 1 tablet by mouth once daily Multivitamin (Daily Multiple Vitamin) 1 EACH tablet Discontinued 1 EACH PO DAILY September 07, 2017 1:00am March 29, 2022 8:30am Completed/Discontinued Medications Medication Drug Class(es) Dates Sig (Normalized) Sig (Original) cholecalciferol 0.125 mg oral tablet (6 sources) Vitamin D Start: 03-29-2022 End: 01-27-2023 take 1 tablet by mouth once daily Cholecalciferol (Vitamin D3) 125 mcg (5,000 unit) tablet Discontinued 125 ug PO DAILY March 29, 2022 12:00am January 27, 2023 8:53am clobetasol propionate 0.5 mg/ml topical cream (6 sources) Corticosteroid Start: 03-29-2022 End: 01-27-2023 Clobetasol 0.05 % cream Discontinued 1 NMA TOPICAL DAILY as needed March 29, 2022 12:00am January 27, 2023 8:53am clonazePAM 0.5 mg oral tablet (6 sources) Benzodiazepine Start: 03-29-2022 End: 01-27-2023 take 1 tablet by mouth once daily as needed Clonazepam 0.5 mg tablet Discontinued 0.5 mg PO DAILY as needed March 29, 2022 12:00am January 27, 2023 8:53am DULoxetine 60 mg delayed release oral capsule (7 sources) Serotonin and Norepinephrine Reuptake Inhibitor Start: 09-07-2017 End: 03-29-2022 Duloxetine 60 MG capsule Discontinued 30 mg PO DAILY September 07, 2017 1:00am March 29, 2022 8:29am Start: 09-07-2017 End: 03-29-2022 take 30 mg by mouth once daily Duloxetine Discontinued 30 MG PO DAILY September 07, 2017 12:00am March 29, 2022 7:29am fluticasone propionate 0.05 mg/actuat metered dose nasal spray (14 sources) Corticosteroid Start: 07-21-2021 End: 03-29-2022 Fluticasone Propionate (Flovent Hfa) 110 mcg/actuation HFA aerosol inhaler Discontinued 1 NMA INHALATION NEEDED as needed for SOB July 21, 2021 1:00am March 29, 2022 8:29am Start: 07-21-2021 End: 03-29-2022 Fluticasone Propionate 50 mc g/actuation spray,suspension Discontinued 1 NMA INTRANASAL NEEDED as needed for ALLERGIES July 21, 2021 1:00am March 29, 2022 8:30am Start: 07-21-2021 End: 03-29-2022 Fluticasone Propionate (Flov ent Hfa) 110 mcg/actuation HFA aerosol inhaler Discontinued 1 PUFF INHALATION NEEDED July 21, 2021 12:00am March 29, 2022 7:29am Start: 07-21-2021 End: 03-29-2022 Fluticasone Propionate Disco ntinued 1 SPRAY INTRANASAL NEEDED July 21, 2021 12:00am March 29, 2022 7:30am pioglitazone 15 mg oral tablet (20 sources) Peroxisome Proliferator Receptor alpha Agonist, Peroxisome Proliferator Receptor gamma Agonist, Thiazolidinedione Start: 11-09-2021 End: 03-08-2022 take 1 tablet by mouth once daily Pioglitazone 15 mg tablet Discontinued 0 .ROUTE .COMPLEX December 06, 2021 6:13pm December 22, 2021 1:29pm TAKE 1 TAB BY MOUTH DAILY predniSONE 10 mg oral tablet (1 source) Start: 05-26-2024 End: 06-10-2024 Prednisone 10 mg tablet Discontinued 10 mg PO .COMPLEX 35 May 26, 2024 12:00am June 09, 2024 12:00am June 10, 2024 12:09am 10 mg orally; 40mg x5 days, 20mg x5 days, 10mg x5 days promethazine hydrochloride 25 mg oral tablet (6 sources) Phenothiazine Start: 03-29-2022 End: 01-27-2023 take 1 tablet by mouth three times daily as needed Promethazine 25 mg tablet Discontinued 25 mg PO THREE TIMES A DAY as needed March 29, 2022 12:00am January 27, 2023 8:53am raNITIdine 150 mg oral tablet (7 sources) Histamine-2 Receptor Antagonist Start: 09-07-2017 End: 01-07-2022 take 1 tablet by mouth once daily Ranitidine (Zantac) 150 MG tablet Discontinued 150 mg PO DAILY September 07, 2017 1:00am January 07, 2022 8:25am saccharomyces boulardii 250 mg oral capsule (6 sources) Start: 03-29-2022 End: 01-27-2023 take 1 capsule by mouth once daily Saccharomyces Boulardii (Daily Probiotic (S. Boulardii)) 250 mg capsule Discontinued 5000 NMA PO DAILY March 29, 2022 12:00am January 27, 2023 8:53am ursodiol 300 mg oral capsule (20 sources) Bile Acid Start: 11-09-2021 End: 03-01-2022 take 1 capsule by mouth twice daily Ursodiol 300 mg capsule Discontinued 0 .ROUTE .COMPLEX 60 December 06, 2021 6:13pm December 22, 2021 1:29pm TAKE 1 CAPSULE BY MOUTH TWICE DAILY vitamin e 180 mg oral capsule (20 sources) Start: 12-06-2021 End: 01-27-2023 take 1 capsule by mouth once daily Vitamin E 400 unit capsule Discontinued 400 U PO DAILY December 22, 2021 1:29pm January 27, 2023 8:53am Start: 11-09-2021 End: 12-22-2021 take 2 capsules by mouth once daily Vitamin E 400 unit capsule Discontinued 0 .ROUTE .COMPLEX 60 December 06, 2021 6:13pm December 22, 2021 1:29pm TAKE 2 CAPSULES BY MOUTH DAILY Start: 11-09-2021 End: 12-06-2021 take 800 [IU] by mouth once daily Vitamin E Discontinued 800 UNIT PO DAILY 60 November 08, 2021 11:00pm December 06, 2021 5:13pm Problems Active Problems Problem Classification Problem Date Documented Date Episodic/Chronic Diabetes mellitus without complication (7 sources) Diabetes mellitus; Translations: [Type 2 diabetes mellitus without complications] Chronic Disorders of lipid metabolism (2 sources) Hyperlipidemia, unspecified; Translations: [Hyperlipidemia, unspecified] Onset: 02-26-2025 Chronic Esophageal disorders (8 sources) Gastroesophageal reflux disease; Translations: [Gastro-esophageal reflux disease without esophagitis] Chronic Hepatitis (7 sources) Nonalcoholic steatohepatitis; Translations: [Nonalcoholic steatohepatitis (SOLANO)] Chronic Other and unspecified benign neoplasm (3 sources) History of polyp of colon; Translations: [Personal history of colonic polyps] 03-22-2023 Episodic Other and unspecified benign neoplasm (1 source) Personal history of colonic polyps; Translations: [Personal history of colonic polyps] 03-22-2023 Episodic Other connective tissue disease (1 source) Foot pain; Translations: [Pain in right foot] 06-02-2024 Episodic Other liver diseases (7 sources) Large liver; Translations: [Hepatomegaly, not elsewhere classified] 03-29-2022 Episodic Other liver diseases (2 sources) Hepatomegaly, not elsewhere classified; Translations: [Hepatomegaly] Episodic Other lower respiratory disease (7 sources) Dyspnea; Translations: [Shortness of breath] 07-29-2021 Episodic Other lower respiratory disease (7 sources) Hypoxia; Translations: [Hypoxemia] 07-29-2021 Episodic Other lower respiratory disease (7 sources) Cough; Translations: [Cough] Episodic Sprains and strains (1 source) Strain of foot; Translations: [Strain of unspecified muscle and tendon at ankle and foot level, right foot, initial encounter] 06-03-2024 Episodic Viral infection (7 sources) COVID-19; Translations: [Pneumonia due to COVID-19 virus] 07-29-2021 Episodic Past or Other Problems Problem Classification Problem Date Documented Da te Episodic/Chronic Other screening for suspected conditions (not mental disorders or infectious disease) (5 sources) Patient encounter status; Translations: [Encounter for screening for malignant neoplasm of colon] Onset: 08-12-2024 01-27-2023 Episodic Results Test Name Value Interpretation Reference Range Facility L501.5101on 07-09-2025 GGTP 76 IU/L Abnormal 0-60 [facility] Comment on above: Order Comment: Order Date: 07/07/25 Order Info: [id number] - CMP Order Info: [id number] - TSH Result Comment: Perf ormed at: - [facility] [address] [id number] Security Alarm Technician: Jacob Bridges PhD, Phone: [phone] Performed By: #### L 324.5166 #### [facility] [address] [place], [address] CBC W/Diff, Automatedon 06-28 Absolute Lymph 2.05 X10 3/uL Normal 0.83-4.51 [facility] Comment on above: Order Comment: Order Date: 07/07/25 Order Info: 018-1 - CBCD Order Info: [id number] - SED Performed By: #### L 501.5101, L501.9520, L100.0100, L101.9900, L500.4050 #### [facility] [address] [place], [address] Absolute Neut 2.5 X10 3/uL Normal 2.0-7.7 [facility] Comment on above: Order Comment: Order Date: 07/07/25 Order Info: 183- - CBCD Order Info: [id number] - SED Performed By: #### L 501.5101, [id number], L100.0100, L101.9900, L500.4050 #### [facility] [address] [place], [address] Basophils/100 WBC (Bld) 0.8 % Normal 0-1 [facility] Comment on above: Order Comment: Order Date: 07/07/25 Order Info: [id number] - CBCD Order Info: [id number] - SED Performed By: #### L 501.5101, [id number], L100.0100, L101.9900, L500.4050 #### [facility] [address] [place], [address] Eosinophils/100 WBC (Bld) 5.4 % High 0-5 [facility] Comment on above: Order Comment: Order Date: 07/07/25 Order Info: 018- - CBCD Order Info: [id number] - SED Performed By: #### L 501.5101, [id number], L100.0100, L101.9900, L500.4050 #### [facility] [address] [place], [address] Erythrocyte distribution width (RBC) [Ratio] 12.4 % Normal 11.6-14.6 [facility] Comment on above: Order Comment: Order Date: 07/07/25 Order Info: [id number] - CBCD Order Info: [id number] - SED Performed By: #### L 501.5101, L501.9520, L100.0100, L101.9900, L500.4050 #### [facility] [address] [place], [address] Hematocrit (Bld) [Volume fraction] 40.4 % Normal 37-47 [facility] Comment on above: Order Comment: Order Date: 07/07/25 Order Info: [id number] - CBCD Order Info: [id number] - SED Performed By: #### L 501.5101, L501.9520, L100.0100, L101.9900, L500.4050 #### [facility] [address] [place], [address] Hemoglobin (Bld) [Mass/Vol] 14.0 g/dL Normal 12.0-15.0 [facility] Comment on above: Order Comment: Order Date: 07/07/25 Order Info: [id number] - CBCD Order Info: [id number] - SED Performed By: #### L 501.5101, [id number], L100.0100, L101.9900, L500.4050 #### [facility] [address] [place], [address] IG% 0.200 Normal 0.0-0.9 [facility] Comment on above: Order Comment: Order Date: 07/07/25 Order Info: 018- - CBCD Order Info: [id number] - SED Result Comment: IG% - Immature Granulocytes (promyelocytes, myelocytes and metamyelocytes) > 1% indicates that a LEFT SHIFT is Present. Performed By: #### L 501.5101, L501.9520, L100.0100, L101.9900, L500.4050 #### [facility] [address] [place], [address] Lymphocytes/100 WBC (Bld) 38.5 % Normal 19-41 [facility] Comment on above: Order Comment: Order Date: 07/07/25 Order Info: [id number] - CBCD Order Info: [id number] - SED Performed By: #### L 501.5101, L501.9520, L100.0100, L101.9900, L500.4050 #### [facility] [address] [place], [address] MCH (RBC) [Entitic mass] 30.0 pg Normal 27.0-32.0 [facility] Comment on above: Order Comment: Order Date: 07/07/25 Order Info: [id number] - CBCD Order Info: [id number] - SED Performed By: #### L 501.5101, [id number], L100.0100, L101.9900, L500.4050 #### [facility] [address] [place], [address] MCHC (RBC) [Mass/Vol] 34.7 g/dL Normal 32-36 [facility] Comment on above: Order Comment: Order Date: 07/07/25 Order Info: [id number] - CBCD Order Info: [id number] - SED Performed By: #### L 501.5101, L501.9520, L100.0100, L101.9900, L500.4050 #### [facility] [address] [place], [address] MCV (RBC) [Entitic vol] 86.5 fL Normal 81-99 [facility] Comment on above: Order Comment: Order Date: 07/07/25 Order Info: [id number] - CBCD Order Info: [id number] - SED Performed By: #### L 501.5101, [id number], L100.0100, L101.9900, L500.4050 #### [facility] [address] [place], [address] Monocytes/100 WBC (Bld) 7.7 % Normal 0-10 [facility] Comment on above: Order Comment: Order Date: 07/07/25 Order Info: 018- - CBCD Order Info: [id number] - SED Performed By: #### L 501.5101, [id number], L100.0100, L101.9900, L500.4050 #### [facility] [address] [place], [address] Neutrophils/100 WBC (Bld) 47.4 % Normal 47-70 [facility] Comment on above: Order Comment: Order Date: 07/07/25 Order Info: 018- - CBCD Order Info: [id number] - SED Performed By: #### L 501.5101, L501.9520, L100.0100, L101.9900, L500.4050 #### [facility] [address] [place], [address] Nucleated RBC (Bld) [#/Vol] 0 10*3/uL Normal 0-5 [facility] Comment on above: Order Comment: Order Date: 07/07/25 Order Info: 018- - CBCD Order Info: [id number] - SED Performed By: #### L 501.5101, L501.9520, L100.0100, L101.9900, L500.4050 #### [facility] [address] [place], [address] Platelet mean volume (Bld) [Entitic vol] 9.0 fL Normal 6.2-12.0 [facility] Comment on above: Order Comment: Order Date: 07/07/25 Order Info: [id number] - CBCD Order Info: [id number] - SED Performed By: #### L 501.5101, L501.9520, L100.0100, L101.9900, L500.4050 #### [facility] [address] [place], [address] Platelets (Bld) [#/Vol] 275 10*3/uL Normal 150-450 [facility] Comment on above: Order Comment: Order Date: 07/07/25 Order Info: 018- - CBCD Order Info: [id number] - SED Performed By: #### L 501.5101, L501.9520, L100.0100, L101.9900, L500.4050 #### [facility] [address] [place], [address] RBC (Bld) [#/Vol] 4.67 10*6/uL Normal 4.2-5.4 [facility] Comment on above: Order Comment: Order Date: 07/07/25 Order Info: [id number] - CBCD Order Info: [id number] - SED Performed By: #### L 501.5101, L501.9520, L100.0100, L101.9900, L500.4050 #### [facility] [address] [place], [address] RDW SD 39.4 fl Normal 35.1-43.9 [facility] Comment on above: Order Comment: Order Date: 07/07/25 Order Info: 0184- - CBCD Order Info: [id number] - SED Performed By: #### L 501.5101, L501.9520, L100.0100, L101.9900, L500.4050 #### [facility] [address] [place], [address] WBC (Bld) [#/Vol] 5.3 10*3/uL Normal 4.4-11.0 [facility] Comment on above: Order Comment: Order Date: 07/07/25 Order Info: 0184- - CBCD Order Info: [id number] - SED Performed By: #### L 501.5101, L501.9520, L100.0100, L101.9900, L500.4050 #### [facility] [address] [place], [address] Comprehensive Metabolic Prof kusum 07-07-2025 Albumin [Mass/Vol] 4.5 g/dL Normal 3.5-5.0 [facility] Comment on above: Order Comment: Order Date: 07/07/25 Order Info: 0786- - CMP Order Info: [id number] - TSH Performed By: #### L 501.5101, L501.9520, L100.0100, L101.9900, L500.4050 #### [facility] [address] [place], [address] Albumin/Globulin [Mass ratio] 1.6 {ratio} Normal 0.9-2.4 [facility] Comment on above: Order Comment: Order Date: 07/07/25 Order Info: 0786- - CMP Order Info: [id number] - TSH Performed By: #### L 501.5101, L501.9520, L100.0100, L101.9900, L500.4050 #### [facility] [address] [place], [address] ALK PHOS 77 U/L Normal 35-104 [facility] Comment on above: Order Comment: Order Date: 07/07/25 Order Info: 0786- - CMP Order Info: [id number] - TSH Performed By: #### L 501.5101, L501.9520, L100.0100, L101.9900, L500.4050 #### [facility] [address] [place], [address] ALT [Catalytic activity/Vol] 46 U/L High <=34 [facility] Comment on above: Order Comment: Order Date: 07/07/25 Order Info: [id number] - CMP Order Info: [id number] - TSH Performed By: #### L 501.5101, L501.9520, L100.0100, L101.9900, L500.4050 #### [facility] [address] [place], [address] AST [Catalytic activity/Vol] 26 U/L Normal <=31 [facility] Comment on above: Order Comment: Order Date: 07/07/25 Order Info: [id number] - CMP Order Info: [id number] - TSH Performed By: #### L 501.5101, L501.9520, L100.0100, L101.9900, L500.4050 #### [facility] [address] [place], [address] Bilirubin [Mass/Vol] 0.45 mg/dL Normal 0.00-1.30 [facility] Comment on above: Order Comment: Order Date: 07/07/25 Order Info: [id number] - CMP Order Info: [id number] - TSH Performed By: #### L 501.5101, L501.9520, L100.0100, L101.9900, L500.4050 #### [facility] [address] [place], [address] BUN/CRE 29.1 RATIO High 10-20 [facility] Comment on above: Order Comment: Order Date: 07/07/25 Order Info: [id number] - CMP Order Info: [id number] - TSH Performed By: #### L 501.5101, L501.9520, L100.0100, L101.9900, L500.4050 #### [facility] [address] [place], [address] Calcium [Mass/Vol] 10.0 mg/dL Normal 7.6-11.0 [facility] Comment on above: Order Comment: Order Date: 07/07/25 Order Info: [id number] - CMP Order Info: [id number] - TSH Performed By: #### L 501.5101, L501.9520, L100.0100, L101.9900, L500.4050 #### [facility] [address] [place], [address] Chloride [Moles/Vol] 104 mmol/L Normal 98-108 [facility] Comment on above: Order Comment: Order Date: 07/07/25 Order Info: [id number] - CMP Order Info: 3 - TSH Performed By: #### L 501.5101, L501.9520, L100.0100, L101.9900, L500.4050 #### [facility] [address] [place], [address] CO2 [Moles/Vol] 26.7 mmol/L Normal 21.0-32.0 [facility] Comment on above: Order Comment: Order Date: 07/07/25 Order Info: [id number] - CMP Order Info: [id number] - TSH Performed By: #### L 501.5101, L501.9520, L100.0100, L101.9900, L500.4050 #### [facility] [address] [place], [address] Creatinine [Mass/Vol] 0.60 mg/dL Low 0.70-1.20 [facility] Comment on above: Order Comment: Order Date: 07/07/25 Order Info: 0786- - CMP Order Info: [id number] - TSH Performed By: #### L 501.5101, L501.9520, L100.0100, L101.9900, L500.4050 #### [facility] [address] [place], [address] GAP 10 Normal 5-15 [facility] [facility] Comment on above: Order Comment: Order Date: 07/07/25 Order Info: 0786-1 - CMP Order Info: 3015-10 - TSH Performed By: #### L 501.5101, L501.9520, L100.0100, L101.9900, L500.4050 #### [facility] [address] [place], [address] GFR/1.73 sq M.predicted among non-blacks MDRD (S/P/Bld) [Vol rate/Area] 103 mL/min/{1.73_m2} Normal >60 [facility] Comment on above: Order Comment: Order Date: 07/07/25 Order Info: 0786-1 - CMP Order Info: 3015-10 - TSH Result Comment: mL/m in/1.73m2 CKD-EPI Creatinine Equation (2020) Performed By: #### L 501.5101, L501.9520, L100.0100, L101.9900, L500.4050 #### [facility] [address] [place], [address] Globulin (S) [Mass/Vol] 2.9 g/dL Normal 2.2-4.2 [facility] Comment on above: Order Comment: Order Date: 07/07/25 Order Info: 0786- - [facility] [address] Order Info: 3015-10 - TSH Performed By: #### L 501.5101, L501.9520, L100.0100, L101.9900, L500.4050 #### [facility] [address] [place], [address] Glucose [Mass/Vol] 114 mg/dL High 70-99 [facility] Comment on above: Order Comment: Order Date: 07/07/25 Order Info: 0786-1 - [facility] Order Info: 3015-10 - TSH Performed By: #### L 501.5101, L501.9520, L100.0100, L101.9900, L500.4050 #### [facility] [address] [place], [address] Potassium [Moles/Vol] 4.2 mmol/L Normal 3.3-5.1 [facility] Comment on above: Order Comment: Order Date: 07/07/25 Order Info: 0786-1 - [facility] Order Info: 3015-10 - TSH Performed By: #### L 501.5101, L501.9520, L100.0100, L101.9900, L500.4050 #### [facility] [address] [place], [place], [address] Sodium [Moles/Vol] 141 mmol/L Normal 133-145 [facility] Comment on above: Order Comment: Order Date: 07/07/25 Order Info: 0786-1 - CMP Order Info: 3016-3 - TSH Performed By: #### L 501.5101, L501.9520, L100.0100, L101.9900, L500.4050 #### [facility] [address] [place], [address] T PROT 7.4 g/dL Normal 5.9-8.4 [facility] Comment on above: Order Comment: Order Date: 07/07/25 Order Info: 0786-1 - CMP Order Info: 30163 - TSH Performed By: #### L 501.5101, L501.9520, L100.0100, L101.9900, L500.4050 #### [facility] [address] [place], [place], [address] Urea nitrogen [Mass/Vol] 18 mg/dL Normal 4-19 [facility] Comment on above: Order Comment: Order Date: 07/07/25 Order Info: 0786-1 - CMP Order Info: 3016-3 - TSH Performed By: #### L 501.5101, L501.9520, L100.0100, L101.9900, L500.4050 #### [facility] [address] [place], [address] Erythrocyte Sed Rateon 07-07 SED RATE 9 mm/hr Normal 0-30 [facility] Comment on above: Order Comment: Order Date: 07/07/25 Order Info: 0184-1 - CBCD Order Info: 34390-0 - SED Performed By: #### L 501.5101, L501.9520, L100.0100, L101.9900, L500.4050 #### [facility] [address] [place], [address] Thyroid Stim Hormone (TSH)on 07-07-2025 TSH 1.710 uIU/mL Normal 0.300-4.200 [facility] Comment on above: Order Comment: Order Date: 07/07/25 Order Info: 0786-1 - [facility] Order Info: 3016-3 - TSH Performed By: #### L 501.5101, L501.9520, L100.0100, L101.9900, L500.4050 #### [facility] [address] [place], [address] Vitamin D,25 Hydroxyon 07-07 Vitamin D 25-OH 33.8 ng/mL Normal 30-100 [facility] Comment on above: Order Comment: Order Date: 07/07/25 Order Info: 0786-1 - [facility] Order Info: 3016-3 - TSH Result Comment: Radha min D Status Deficiency: <20 ng/mL (50nmol/L) Insufficiency: 20-30 ng/mL (50-75 nmol/L) Sufficiency: 30-100 ng/mL (75-250 nmol/L) Toxicity: >100 ng/mL (>250 nmol/L) Performed By: #### L 506.1001 #### [facility] [address] [place], [place], [address] Coronary Angiography CTon Coronary Angiography CT [facility] Imaging Services [address] [place] [address] 02/17/25 1024 MR#: [id number] Acct: [id number] Name: VIKAS LEDBETTER Rep #: [id number] : 1965 59 From: John Vazquez MD PCP: Dr. Siddhartha Meadows MD Status:REG CLI Y Location: CT Calcium Scoring Date of Study:: 02/14/25 Indications Indications: Dyslipidemia Coronary Calcium Scoring: High-resolution Computed Tomographic imaging of the chest was performed on [02/14/2025], with particular attention paid to the coronary arteries. Images from the examination were analyzed for the presence and extent of coronary artery calcification , using coronary calcium quantification software. The patient tolerated the procedure well and there were no complications. The results of the coronary calcification analysis are provided below. Findings Coronary Artery Left Main (LM): 0 Left Anterior Descending (LAD): 0 Left Circumflex (LCX): 0 Right Coronary Artery (RCA): 0 Total Agatston Score: 0 Percentile Rankin Calcium Scoring Interpretation: Different methods to categorize the overall amount of coronary plaque. Overall amount CAC SIS Visual of coronary plaque P1 Mild -100 <2 1-2 vessels with mild amount of plaque P2 Moderate 101-300 3-4 1-2 vessels with moderate amount, 3 vessels with mild amount of plaque P3 Severe 301-999 5-7 3 vessels with moderate amount, 1 vessel with severe amount of plaque P4 Extensive >1000 >8 2-3 vessels with severe amount of plaque Conclusion: No atherosclerotic plaquing noted. 02/17/25 1025 Date John Vazquez MD [facility] Signature (if applicable): Date CC: Dr. Siddhartha Meadows MD; Dr. John Vazquez MD Signed Normal [facility] Limited Chest CT Cardiac Onl yon 02-14-[address] Cardiac Only [facility] Imaging Services [address] [place], [place] [address] Limited Chest CT Cardiac Only MR#: [id number] Acct: [id number] Name: VIKAS LEDBETTER Rep #: [id number] : 1965 F 59 From: Randolph collins MD PCP: Dr. Siddhartha Meadows MD Status: [facility] Study: Limited Chest CT Cardiac Only Date of Exam: Exam# [id number] Ordering Dr: Siddhartha Meadows PROCEDURE: LIMITED CHEST CT CARDIAC ONLY 02/14/2025 REASON FOR EXAM: DYSLIPIDEMIA TECHNIQUE: LIMITED CHEST CT CARDIAC ONLY Coronal and Sagittal reconstruction series were provided. CONTRAST: None. One or more dose reduction techniques were used (e.g., Automated exposure control, adjustment of the mA and/or kV according to patient size, use of iterative reconstruction technique). RADIATION DOSE SUMMARY: CTDlvol: 12.19 mGy DLP: 243.97 mGycm COMPARISON: 07/21/2021. FINDINGS: Small sliding hiatal hernia. Normal unenhanced main pulmonary artery and right and left pulmonary arteries. Normal bilateral peripheral pulmonary arteries. Normal thoracic aorta and visualized great vessels. There is no demonstrated aortic aneurysm. Normal heart and pericardium. Normal mediastinum. Normal hilar regions. Normal visualized trachea and bronchi. The lungs are well expanded. Normal pulmonary parenchyma. Normal pleura. Mild diffuse spondylosis. Normal visualized upper abdomen. CT/Limited Chest CT Cardiac Only IMPRESSION: Small sliding hiatal hernia. Otherwise, unremarkable exam. Reading Location: [place] [address] CC: Dr. Siddhartha Meadows MD [employer]: Signed Normal [facility] Urgent Care Visit Reporton 0 11-06-2024 Urgent Care Visit Report [facility] [address], [address] [place] [address] OFFICE VISIT Date of Service: 11/06/24 MR#: [id number] Acct: [id number] Name: VIKAS LEDBETTER Rep #: [id number] : 1965 Provider: JACY Olivares Age/Sex: 59/F Location: [facility] Status: Signed Intake Vital Signs 06/03/24 09:28 11/06/24 08:35 Height 5 ft 4 in Weight: 205 lb BMI 35.2 BP 152/86 H 130/68 H Blood Pressure Location Lt brachial Lt brachial Position Sitting Sitting Respiration 16 17 Pulse 81 80 Pulse Source Monitor NIBP Temp 98.3 F 98.7 F Temp Source Temporal Oral Pulse Oximetry (%) 97 96 Oxygen Delivery Method room air room air Intake Visit Reasons: COUGH, CONGESTION, SORE THROAT, EARS FEEL CLOGGED Chief Complaint: chest congest, face pressure, ears plugged Brainer Required: No Is patient in pain?: No Allergies bupropion (From Contrave) Adverse Reaction (Verified 11/06/24 08:36) Nausea naltrexone (From Contrave) Adverse Reaction (Verified 11/06/24 08:36) Nausea phentermine (From Qsymia) Adverse Reaction (Verified 11/06/24 08:36) Other topiramate (From Qsymia) Adverse Reaction (Verified 11/06/24 08:36) Other venlafaxine (From Effexor) Adverse Reaction (Verified 11/06/24 08:36) Nausea Is last menstrual period known: No Post menopausal: Yes Patient : No Have you fallen in the past year?: No Nurse's Note: chest congest, face pressure, ears plugged x 1 week. denies fever, SHAW, BA, ST PFSH Medical History (Updated 06/03/24 @ 10:54 by Aquiles Ledbetter PA, PA) Post-menopausal Fatty liver Seasonal allergies History of IBS Chronic cough PONV (postoperative nausea and vomiting) Psoriatic arthritis IFG (impaired fasting glucose) Hx of colonic polyps Wears contact lenses Diabetes Back pain Dietary restriction Difficulty swallowing History of hiatal hernia Gastric reflux Non-smoker History of chronic cough IBS (irritable bowel syndrome) Surgical History (Updated 03/17/23 @ 11:56 by Faye Tsai) History of back surgery History of esophagogastroduodenoscop y (EGD) Hx of colonoscopy History of foot surgery History of tonsillectomy History of tubal ligation Family History (Updated 01/27/23 @ 08:44 by Luz Skaggs) Sister Colon polyps Social History (Updated 01/27/23 @ 08:49 by Luz Skaggs) household members: spouse current occupational status: employed Smoking Status: Never smoker HPI HPI Chief Complaint: chest congest, face pressure, ears plugged Details: VIKAS LEDBETTER, is a 59 F who presents to the office today for [facility] at [facility] for approximately 7-8 day history of progressively worsening facial pressure/congestion with p urulent postnasal drip/cough and bilateral ear pressure and chest congestion. No complaints of fever, chills, myalgias, fatigue, runny nose, or nausea/vomiting/diarrhea. No complaints of chest pain/shortness of breath/dyspnea on exertion. No close contacts with similar complaints. No other associated symptoms and no other alleviating/aggravating factors. ROS Const Constitutional: No other (as above) Exam Const General: cooperative, healthy appearing and no acute distress Nutritional Appearance: average body habitus Orientation: alert, awake and oriented x3 [facility] Head: normal to inspection Ears: hearing grossly normal bilaterally, external ears normal, TM's normal bilaterally and EAC's normal Nose: external nose normal, nares normal, septum normal and no nasal discharge Face and sinus: normal facial exam, bilateral maxillary sinuses palpable tender (with bilateral maxillary fullness to palpation) and face symmetric Mouth: oral mucosae normal, lip normal, tongue normal and oropharynx normal Throat: posterior oropharynx normal, tonsils normal, uvula midline and postnasal drainage (scant amount purulent) Eyes General: appearance normal, both eyes and all related structures Neck Neck: normal visual inspection, full ROM, no meningeal signs, supple and lymphadenopathy (Bilateral anterior cervical lymph node swelling/tender to palpation) Neck mass: No Thyroid: thyroid normal Chest Chest palpation inspection: normal inspection of the chest Resp Effort Inspection: normal respiratory effort and able to speak in complete sentences Auscultation: Bilateral: Clear to Auscultation Cardio Palpation: normal PMI Rate: regular rate Rhythm: regular rhythm Heart Sounds: S1 normal, S2 normal, no gallops, no murmurs and no rubs Pulses: radial pulses present GI Inspection: normal to inspection Skin General: no rashes or lesions noted Neuro General: patient alert, patient awake and patient oriented x3 Cognition: normal cognition Speech: speech normal Psych Appearance: grossly normal Mental Status: mental (more content not included)... Normal [facility] PAP IG HPV HR APTIMAon 08-04 ADEQ Comment Normal . [facility] Comment on above: Order Comment: Portia londono Comment: [id number] Specimen Comment: Source.............Endocervix Specimen Comment: Other..............Other Specimen Comment: No. of containers..01 ThinPrep Vial Result Comment: Sati sfactory for evaluation. Endocervical and/or squamous metaplastic cells (endocervical component) are present. Performed By: #### L 7400.0377 #### [facility] [address] [place], [address] COMM . Normal . [facility] Comment on above: Order Comment: Speci men Comment: [id number] Specimen Comment: Source.............Endocervix Specimen Comment: Other..............Other Specimen Comment: No. of containers..01 ThinPrep Vial Performed By: #### L 7400.0377 #### [facility] [address] [place], [place], [address] COMMENT Comment Normal . [facility] Comment on above: Order Comment: Speci men Comment: [id number] Specimen Comment: Source.............Endocervix Specimen Comment: Other..............Other Specimen Comment: No. of containers..01 ThinPrep Vial Result Comment: This liquid based ThinPrep(R) pap test was screened with the use of an image guided system. Performed By: #### L 7400.0377 #### [facility] [address] [place], [place], [address] DIAG Comment Normal . [facility] Comment on above: Order Comment: Speci men Comment: [id number] Specimen Comment: Source.............Endocervix Specimen Comment: Other..............Other Specimen Comment: No. of containers..01 ThinPrep Vial Result Comment: NEGA TIVE FOR INTRAEPITHELIAL LESION OR MALIGNANCY. Performed By: #### L 7400.0377 #### [facility] [address] [place], [place], [address] HPV APTIMA, HR Negative Normal Negative [facility] Comment on above: Order Comment: Speci men Comment: [id number] Specimen Comment: Source.............Endocervix Specimen Comment: Other..............Other Specimen Comment: No. of containers..01 ThinPrep Vial Result Comment: This nucleic acid amplification test detects fourteen high- risk HPV types (16,18,31,33,35,39,45,51,52,56,58,59,66,68) without differentiation. Performed at: [address] [id number] Security Alarm Technician: Neda Guillen MD, Phone: [phone] Performed at: =[address] [id number] Security Alarm Technician: Neda Guillen MD, Phone: [phone] Performed By: #### L 7400.0377 #### [facility] [address] [place], [address] PAPSMR Comment Normal . [facility] Comment on above: Order Comment: Speci men Comment: [id number] Specimen Comment: Source.............Endocervix Specimen Comment: Other..............Other Specimen Comment: No. of containers..01 ThinPrep Vial Result Comment: The Pap smear is a screening test designed to aid in the detection of premalignant and malignant conditions of the uterine cervix. It is not a diagnostic procedure and should not be used as the sole means of detecting cervical cancer. Both false-positive and false-negative reports do occur. Performed By: #### L 7400.0377 #### [facility] [address] [place], [address] PERFORM Comment Normal . [facility] Comment on above: Order Comment: Speci men Comment: [id number] Specimen Comment: Source.............Endocervix Specimen Comment: Other..............Other Specimen Comment: No. of containers..01 ThinPrep Vial Result Comment: Rosa Brandt, Taxation Agent (ASCP) Performed By: #### L 7400.0377 #### [facility] [address] [place], [place], [address] SCRN MAMM (CAD)W/ZOYA BILATo n 07-16-2024 SCRN MAMM (CAD)W/ZOYA BILAT [facility] Imaging Services [address] [place], [place] [address] SCRN MAMM (CAD)W/ZOYA BILAT MR#: [id number] Acct: [id number] Name: VIKAS LEDBETTER Rep #: [id number] : 1965 F 59 From: Dameon hobson MD PCP: Dr. Siddhartha Meadows MD Status: [facility] Study: SCRN MAMM (CAD)W/ZOYA BILAT Date of Exam: 06/28 05/21 Exam# [id number] Ordering Dr: Siddhartha Meadows [id number] MAMMOGRAPHY - BILATERAL SCREENING REASON FOR EXAM: Female, 59 years old. Routine annual screening examination. PERTINENT HISTORY: Grandmother with breast cancer. Aunts with breast cancer. TECHNIQUE: Digital bilateral breast zoya (3D mammographic acquisition) in the CC and MLO projections. 2-D mediolateral oblique (MLO) and craniocaudad (CC) views of both breasts were obtained. CAD: Full Field Digital Mammography with Computer Added Detection was performed. COMPARISON: Comparison is made with prior examination dated July 14, 2023 and June 02, 2022. FINDINGS: Breast Composition: The breasts are almost entirely fatty. There are no dominant masses or suspicious calcifications. No other significant abnormalities are identified. There has been no significant change since the prior study. BI/SCRN MAMM (CAD)W/ZOYA BILAT IMPRESSION: Stable bilateral screening mammogram. Yearly follow-up mammogram recommended. (A) ASSESSMENT CATEGORY: BIRADS Category 1: Negative. A letter regarding these results will be sent to the patient by the facility within 30 days. Approximately 10% of breast cancers are not detected by mammography. A normal mammogram should not delay biopsy of a clinically suspicious abnormality. [id number] Electronically Signed: Dameon Alejandro MD at 11:07 EST , CC: Dr. Siddhartha Meadows MD [employer]: Signed Normal [facility] Absolute lymphocyte countOrd ered By: Lindsey Byrd on 08-30-2023 Lymphocytes Auto (Unsp spec) [#/Vol] 1.61 10*3/uL 0.83-4.51 [facility] Basophil percentageOrdered B y: Lindsey Byrd on 08-30-2023 Basophils/100 WBC (Bld) 0.9 % 0-1 [facility] Bilirubin [Mass/Vol] 0.60 mg/dL 0.20-1.00 [facility] Comment on above: For patients on eltr ombopag therapy, use of Dimension [place] TBIL is not recommended. Chloride [Moles/Vol] 107 mmol/L 98-107 [facility] Eosinophils/100 WBC (Bld) 2.8 % 0-5 [facility] Glucose [Mass/Vol] 120 mg/dL 74-106 [facility] Comment on above: Fasting Glucose resu lt from 100 to 125 mg/dL suggests IMPAIRED HOMEOSTASIS per A.D.A. criteria. Neutrophils (Bld) [#/Vol] 3.4 10*3/uL 2.0-7.7 [facility] Neutrophils/100 WBC (Bld) 59.7 % 47-70 [facility] Potassium [Moles/Vol] 4.2 mmol/L 3.5-5.1 [facility] Protein [Mass/Vol] 7.5 g/dL 6.4-8.2 [facility] Sodium [Moles/Vol] 141 mmol/L 136-145 [facility] WBC (Bld) [#/Vol] 5.8 10*3/uL 4.4-11.0 [facility] Blood erythrocytes count (nu mber/volume)Ordered By: Lindsey Byrd on 08-30-2023 RBC (Bld) [#/Vol] 4.97 10*6/uL 4.2-5.4 [facility] Blood hemoglobin measurement (mass/volume)Ordered By: Lindsey Byrd on 08-30-2023 Hemoglobin (Bld) [Mass/Vol] 14.4 g/dL 12.0-15.0 [facility] Blood lymphocytes/100 leukoc ytesOrdered By: [facility] on 08-30-2023 Lymphocytes/100 WBC (Bld) 28.0 % 19-41 [facility] Blood monocytes/100 leukocyt esOrdered By: [facility] on 08-30-2023 Monocytes/100 WBC (Bld) 8.3 % 0-10 [facility] Blood platelet mean volumeOr dered By: [facility] on 08-30-2023 Platelet mean volume (Bld) [Entitic vol] 9.4 fL 6.2-12.0 [facility] Determination of erythrocyte mean corpuscular volume (MCV)Ordered By: Lindsey Byrd on 08-30-2023 MCV (RBC) [Entitic vol] 88.7 fL 81-99 [facility] Hematocrit Auto (Bld) [Volum e fraction]Ordered By: [facility] Roc[facility] on 08-30-2023 Hematocrit (Bld) [Volume fraction] 44.1 % 37-47 [facility] Laboratory - Chemistry and C hemistry - challengeOrdered By: Lindsey Byrd on 08-30-2023 ALP [Catalytic activity/Vol] 89 U/L 45-117 [facility] ALT [Catalytic activity/Vol] 90 U/L 13-56 [facility] CO2 [Moles/Vol] 28.0 mmol/L 21.0-32.0 [facility] Globulin (S) [Mass/Vol] 3.6 g/dL 2.2-4.2 [facility] Magnesium [Mass/Vol] 2.2 mg/dL 1.6-2.6 [facility] Urea nitrogen/Creatinine [Mass ratio] 37.8 mg/mg 10-20 [facility] - Hematology and Cell countsOrdered By: Lindsey Byrd on 08-30-2023 Erythrocyte distribution width (RBC) [Entitic vol] 39.4 fL 35.1-43.9 [facility] Erythrocyte distribution width (RBC) [Ratio] 12.3 % 11.6-14.6 [facility] Immature granulocytes/100 WBC (Bld) 0.300 % 0.0-0.9 [facility] Comment on above: IG% - Immature Granu locytes (promyelocytes, myelocytes and metamyelocytes) > 1% indicates that a LEFT SHIFT is Present. MCH (RBC) [Entitic mass] 29.0 pg 27.0-32.0 [facility] Nucleated RBC/100 WBC (Bld) [Ratio] 0 % 0-5 [facility] MCHC Auto (RBC) [Mass/Vol]Or dered By: Lindsey Byrd on 08-30-2023 MCHC (RBC) [Mass/Vol] 32.7 g/dL 32-36 [facility] No Panel InformationOrdered By: Lindsey Byrd on 08-30-2023 Estimated GFR (MDRD) Amer 118 mL/min >60 [facility] Comment on above: GFR Calc Estimated GFR (MDRD) Non-Af Amer 98 mL/min >60 [facility] Comment on above: Non- GFR Calc Vitamin D 25-Hydroxy 31.0 ng/mL [facility] Comment on above: Vitamin D 25(OH) Sta tus Range Deficiency <20 ng/mL (50nmol/L) Insufficiency 20 - 30 ng/mL (50 - 75 nmol/L) Sufficiency 30 - 100 ng/mL (75 - 250 nmol/L) Toxicity >100 ng/mL (>250 nmol/L) Platelets bldOrdered By: Vandana Byrd on 08-30-2023 Platelets (Bld) [#/Vol] 310 10*3/uL 150-450 [facility] Serum or plasma albumin katarzyna urement (mass/volume)Ordered By: Lindsey Byrd on 08-30-2023 Albumin [Mass/Vol] 3.9 g/dL 3.2-5.0 [facility] Serum or plasma albumin/glob ulin mass ratioOrdered By: Lindsey Byrd on 08-30-2023 Albumin/Globulin [Mass ratio] 1.1 {ratio} 0.9-2.4 [facility] Serum or plasma calcium katarzyna urement (mass/volume)Ordered By: Lindsey Byrd on 08-30-2023 Calcium [Mass/Vol] 9.3 mg/dL 8.5-10.1 [facility] Serum or plasma creatinine m easurement (mass/volume)Ordered By: Lindsey Byrd on 08-30-2023 Creatinine [Mass/Vol] 0.66 mg/dL 0.55-1.02 [facility] Comment on above: The validity of the calculated GFR & GFRAA in patients over 70 years has not been determined. Clinical correlation is essential. Serum or plasma urea nitroge n measurement (mass/volume)Ordered By: Lindsey Byrd on 08-30-2023 Urea nitrogen [Mass/Vol] 25 mg/dL 7-18 [facility] Thin prep Papanicolaou smear with manual screeningOrdered By: Lindsey Byrd on 08-30-2023 Thin prep Papanicolaou smear with manual screening 31 U/L 15-37 [facility] Thin prep Papanicolaou smear with manual screening 6 5-15 [facility] Absolute lymphocyte countOrd ered By: Dr. Meadows on 11-14-2022 Lymphocytes Auto (Unsp spec) [#/Vol] 1.69 10*3/uL 0.83-4.51 [facility] Basophil percentageOrdered B y: Dr. Meadows on 11-14-2022 Basophil percentage 3.0 mg/dL 2.5-4.9 [facility] Basophils/100 WBC (Bld) 0.8 % 0-1 [facility] Bilirubin [Mass/Vol] 0.80 mg/dL 0.20-1.00 [facility] Comment on above: For patients on eltr ombopag therapy, use of Dimension [place] TBIL is not recommended. Chloride [Moles/Vol] 107 mmol/L 98-107 [facility] Cholesterol [Mass/Vol] 240 mg/dL <200 [facility] Comment on above: <200 mg/dL Desirable 200-240 mg/dL Borderline >240 mg/dL High Risk Eosinophils/100 WBC (Bld) 2.9 % 0-5 [facility] Glucose [Mass/Vol] 113 mg/dL 74-106 [facility] Comment on above: Fasting Glucose resu lt from 100 to 125 mg/dL suggests IMPAIRED HOMEOSTASIS per A.D.A. criteria. Neutrophils (Bld) [#/Vol] 2.6 10*3/uL 2.0-7.7 [facility] Neutrophils/100 WBC (Bld) 54.1 % 47-70 [facility] Potassium [Moles/Vol] 3.6 mmol/L 3.5-5.1 [facility] Protein [Mass/Vol] 7.8 g/dL 6.4-8.2 [facility] Sodium [Moles/Vol] 141 mmol/L 136-145 [facility] Triglyceride [Mass/Vol] 71 mg/dL <199 [facility] Comment on above: The drugs N-Acetylcy steine and Metamizole may falsely depress this assay.Serum Triglycerides Reference Interval Normal <150 mg/dL Borderline high 150 - 199 mg/dL High 200 - 499 mg/dL Very High > or = 500 mg/dL WBC (Bld) [#/Vol] 4.8 10*3/uL 4.4-11.0 [facility] Blood erythrocytes count (nu mber/volume)Ordered By: Dr. Meadows on 11-14-2022 RBC (Bld) [#/Vol] 5.14 10*6/uL 4.2-5.4 [facility] Blood hemoglobin measurement (mass/volume)Ordered By: Dr. Meadows on 11-14-2022 Hemoglobin (Bld) [Mass/Vol] 15.1 g/dL 12.0-15.0 [facility] Blood lymphocytes/100 leukoc ytesOrdered By: Dr. Meadows on 11-14-2022 Lymphocytes/100 WBC (Bld) 35.1 % 19-41 [facility] Blood monocytes/100 leukocyt esOrdered By: Dr. Meadows on 11-14-2022 Monocytes/100 WBC (Bld) 6.9 % 0-10 [facility] Blood platelet mean volumeOr dered By: Dr. Meadows on 11-14-2022 Platelet mean volume (Bld) [Entitic vol] 9.7 fL 6.2-12.0 [facility] Determination of erythrocyte mean corpuscular volume (MCV)Ordered By: Dr. Meadows on 11-14-2022 MCV (RBC) [Entitic vol] 88.7 fL 81-99 [facility] Erythrocyte sedimentation ra teOrdered By: Dr. Meadows on 11-14-2022 ESR (Bld) [Velocity] 7 mm/h 0-30 [facility] Hematocrit Auto (Bld) [Volum e fraction]Ordered By: Dr. Meadows on 11-14-2022 Hematocrit (Bld) [Volume fraction] 45.6 % 37-47 [facility] Laboratory - Chemistry and C hemistry - challengeOrdered By: Dr. Meadows on 11-14-2022 ALP [Catalytic activity/Vol] 75 U/L 45-117 [facility] ALT [Catalytic activity/Vol] 58 U/L 13-56 [facility] Amylase [Catalytic activity/Vol] 73 U/L 5-55 [facility] CO2 [Moles/Vol] 25.0 mmol/L 21.0-32.0 [facility] Globulin (S) [Mass/Vol] 3.7 g/dL 2.2-4.2 [facility] Magnesium [Mass/Vol] 1.9 mg/dL 1.6-2.6 [facility] Urea nitrogen/Creatinine [Mass ratio] 25.5 mg/mg 10-20 [facility] Laboratory - Hematology and Cell countsOrdered By: Dr. Meadows on 11-14-2022 Erythrocyte distribution width (RBC) [Entitic vol] 41.8 fL 35.1-43.9 [facility] Erythrocyte distribution width (RBC) [Ratio] 12.8 % 11.6-14.6 [facility] Immature granulocytes/100 WBC (Bld) 0.200 % 0.0-0.9 [facility] Comment on above: IG% - Immature Granu locytes (promyelocytes, myelocytes and metamyelocytes) > 1% indicates that a LEFT SHIFT is Present. MCH (RBC) [Entitic mass] 29.4 pg 27.0-32.0 [facility] Nucleated RBC/100 WBC (Bld) [Ratio] 0 % 0-5 [facility] MCHC Auto (RBC) [Mass/Vol]Or dered By: Dr. Meadows on 11-14-2022 MCHC (RBC) [Mass/Vol] 33.1 g/dL 32-36 [facility] No Panel InformationOrdered By: Dr. Meadows on 11-14-2022 Homocysteine 8.0 umol/L 3.2-10.7 [facility] C-Peptide 2.7 ng/mL 1.1-4.4 [facility] Comment on above: C-Peptide reference interval is for fasting patients.Performed at: [facility] [address] [id number] Director: Jacob Bridges PhD, Phone: [phone] C-Reactive Protein High Sensitivity 1.16 mg/L <3.00 [facility] Comment on above: Low Relative Risk of CVD <1.0 mg/L Average Relative Risk of CVD 1.0 - 3.0 mg/L High Relative Risk of CVD >3.0 mg/L Dehydroepiandrosterone Sulfate 77.3 ug/dL 29.4-220.5 [facility] Estimated GFR (MDRD) Amer 110 mL/min >60 [facility] Comment on above: GFR Calc Estimated GFR (MDRD) Non-Af Amer 91 mL/min >60 [facility] Comment on above: Non- GFR Calc Insulin Level 10.2 mU/L 2.6-37.6 [facility] Thyroid Stimulating Hormone (TSH) 2.50 uIU/mL 0.358-3.74 [facility] Vitamin D 25-Hydroxy 35.6 ng/mL [facility] Comment on above: Vitamin D 25(OH) Sta tus Range Deficiency <20 ng/mL (50nmol/L) Insufficiency 20 - 30 ng/mL (50 - 75 nmol/L) Sufficiency 30 - 100 ng/mL (75 - 250 nmol/L) Toxicity >100 ng/mL (>250 nmol/L) Platelets bldOrdered By: Dr. Meadows on 11-14-2022 Platelets (Bld) [#/Vol] 276 10*3/uL 150-450 [facility] Serum or plasma albumin katarzyna urement (mass/volume)Ordered By: Dr. Meadows on 11-14-2022 Albumin [Mass/Vol] 4.1 g/dL 3.2-5.0 [facility] Serum or plasma albumin/glob ulin mass ratioOrdered By: Dr. Meadows on 11-14-2022 Albumin/Globulin [Mass ratio] 1.1 {ratio} 0.9-2.4 [facility] Serum or plasma calcium katarzyna urement (mass/volume)Ordered By: Dr. Meadows on 11-14-2022 Calcium [Mass/Vol] 9.7 mg/dL 8.5-10.1 [facility] Serum or plasma cholesterol in HDL measurement (mass/volume)Ordered By: Dr. Meadows on 11-14-2022 Cholesterol in HDL [Mass/Vol] 67 mg/dL >40 [facility] Comment on above: The drugs N-Acetylcy steine and Metamizole may falsely depress this assay. Reference Range HDL <40 mg/dL Low HDL Cholesterol HDL >or= 60 mg/dL High HDL Cholesterol Serum or plasma cholesterol in VLDL measurement (mass/volume)Ordered By: Dr. Meadows on 11-14-2022 Cholesterol in VLDL [Mass/Vol] 14 mg/dL 5-40 [facility] Serum or plasma creatinine m easurement (mass/volume)Ordered By: Dr. Meadows on 11-14-2022 Creatinine [Mass/Vol] 0.71 mg/dL 0.55-1.02 [facility] Comment on above: The validity of the calculated GFR & GFRAA in patients over 70 years has not been determined. Clinical correlation is essential. Serum or plasma ferritin walker surement (mass/volume)Ordered By: Dr. Meadows on 11-14-2022 Ferritin [Mass/Vol] 152 ng/mL 8-252 [facility] Serum or plasma low density lipoprotein (LDL) cholesterol measurement (mass/volume)Ordered By: Dr. Meadows on 11-14-2022 Cholesterol in LDL [Mass/Vol] 159 mg/dL 0-130 [facility] Serum or plasma urea nitroge n measurement (mass/volume)Ordered By: Dr. Meadows on 11-14-2022 Urea nitrogen [Mass/Vol] 18 mg/dL 7-18 [facility] Thin prep Papanicolaou smear with manual screeningOrdered By: Dr. Meadows on 11-14-2022 Thin prep Papanicolaou smear with manual screening 25 U/L 15-37 [facility] Thin prep Papanicolaou smear with manual screening 9 5-15 [facility] Whole blood hemoglobin A1c/t otal hemoglobin ratio (mass fraction)Ordered By: Dr. Meadows on 11-14-2022 HbA1c (Bld) [Mass fraction] 5.5 % 3.8-5.6 [facility] Comment on above: Normal < 5.7 % Predi abetic 5.7 - 6.4 % Diabetic >or= 6.5 % Please note range changes. Glucose Glucometer (BldC) [M ass/Vol]on 12-24-2021 Glucose [Mass/Vol] 150 mg/dL 74-106 [facility] Work Phone: Comment on above: MANAGEMENT OF PATIEN T CARE PER NURSING PROTOCOL Atypical perinuclear antineu trophil cytoplasmic antibodies measurementon 10-22-2021 Neutrophil cytoplasmic Ab.perinuclear.atypical IF (S) [Titer] <1:20 titer Neg:<1:20 [facility] Work Phone: Comment on above: The atypical pANCA p attern has been observed in asignificant percentage of patients with ulcerative colitis,primary sclerosing cholangitis and autoimmune hepatitis. Basophil percentageon 2021 Basophil percentage < 0.[address] [facility] Work Phone: Bilirubin [Mass/Vol] 0.50 mg/dL 0.20-1.00 [facility] Work Phone: Comment on above: For patients on eltr ombopag therapy, use of Dimension [place] TBIL is not recommended. Chloride [Moles/Vol] 106 mmol/L 98-107 [facility] Work Phone: Glucose [Mass/Vol] 117 mg/dL 74-106 [facility] Work Phone: Comment on above: Fasting Glucose resu lt from 100 to 125 mg/dL suggests IMPAIRED HOMEOSTASIS per A.D.A. criteria. Potassium [Moles/Vol] 3.9 mmol/L 3.5-5.1 [facility] Work Phone: Protein [Mass/Vol] 8.0 g/dL 6.4-8.2 [facility] Work Phone: Sodium [Moles/Vol] 139 mmol/L 136-145 [facility] Work Phone: Erythrocyte sedimentation ra maisha 10-22-2021 ESR (Bld) [Velocity] 16 mm/h 0-30 [facility] Work Phone: HIV 1 and HIV-2 antibody ass ay with HIV-1 p24 antigen detectionon 10-22-2021 HIV 1+2 Ab+HIV1 p24 Ag IA Ql Non-Reactive Nonreactive [facility] Work Phone: Laboratory - Chemistry and C hemistry - challengeon 10-22-2021 ALP [Catalytic activity/Vol] 154 U/L 45-117 [facility] Work Phone: ALT [Catalytic activity/Vol] 166 U/L 13-56 [facility] Work Phone: CO2 [Moles/Vol] 27.0 mmol/L 21.0-32.0 [facility] Work Phone: Globulin (S) [Mass/Vol] 4.0 g/dL 2.2-4.2 [facility] Work Phone: Urea nitrogen/Creatinine [Mass ratio] 27.2 mg/mg 10-20 [facility] Work Phone: No Panel Informationon 10-22 Centromere B Antibody <0.2 AI [facility] Work Phone: CRYSTAL SLICER Antibody <0.2 AI [facility] Work Phone: Ceruloplasmin 31.6 mg/dL [facility] Work Phone: Estimated GFR (MDRD) Amer 105 mL/min >60 [facility] Work Phone: Comment on above: GFR Calc Estimated GFR (MDRD) Non-Af Amer 87 mL/min >60 [facility] Work Phone: Comment on above: Non- GFR Calc Haptoglobin 160 mg/dL [facility] Work Phone: Comment on above: Performed at: [facility] [id number] [place], [place] [id number] Director: Jacob Bridges PhD, Phone: [phone] at: [facility] [id number] Director: Jones Liz MD, Phone: [phone] Hepatitis A IgM Antibody Negative Negative [facility] Work Phone: Hepatitis B Core IgM Antibody Negative Negative [facility] Work Phone: Hepatitis C Antibody (EIA) <0.1 s/co ratio [facility] Work Phone: Comment on above: Negative: < 0.8 Inde terminate: 0.8 - 0.9 Positive: > 0.9 The CDC recommends that a positive HCV antibody result be followed up with a HCV Nucleic Acid Amplification test (408096).Effective November 08, 2021 Hepatitis Panel (4) will be made non-orderable. [employer] offers order code [id number] Acute Hepatitis. Serum DNA double strand anti body assay (units/volume)on 10-22-2021 DNA double strand Ab Qn (S) [IU]/mL [facility] Work Phone: Comment on above: Negative <5 Equivoca l 5 - 9 Positive >9 Serum Georgette-1 antibody assay (u nits/volume)on 10-22-2021 Georgette-1 extractable nuclear Ab Qn (S) <0.2 [facility] Work Phone: Serum Scl-70 extractable nuc lear antibody assay (units/volume)on 10-22-2021 SCL-70 extractable nuclear Ab Qn (S) <0.2 AI [facility] Work Phone: Serum Olivier extractable nucl ear antibody detectionon 10-22-2021 Olivier extractable nuclear Ab Ql (S) <0.2 [facility] Work Phone: Serum classic neutrophil cyt oplasmic antibody assay (units/volume)on 10-22-2021 Neutrophil cytoplasmic Ab.classic Qn (S) <1:20 titer Neg:<1:20 [facility] Work Phone: Serum mitochondria antibody detectionon 10-22-2021 Mitochondria Ab Ql (S) <20.0 Units [facility] Work Phone: Comment on above: Negative 0.0 - 20.0 Equivocal 20.1 - 24.9 Positive >24.9Mitochondrial (M2) Antibodies are found in 90-96% ofpatients with primary biliary cirrhosis.Performed at: [facility] [id number] Director: Jacob Bridges PhD, Phone: [phone] Serum or plasma C reactive p rotein measurement (mass/volume)on 10-22-2021 CRP [Mass/Vol] mg/L 0.0-3.0 [facility] Work Phone: Comment on above: C-Reactive Protein ( CRP) provides useful information for thediagnosis, therapy and monitoring of inflammatory processesand associated diseases. For the evaluation of Relative Riskfor Cardiovascular Disease, a High Sensitivity CRP (HSCRP)should be ordered. Serum or plasma actin IgG an tibody assay (units/volume)on 10-22-2021 Actin IgG Qn 6 Units [facility] Work Phone: Comment on above: Negative 0 - 19 Weak positive 20 - 30 Moderate to strong positive >30 Actin Antibodies are found in 52-85% of patients with autoimmune hepatitis or chronic active hepatitis and in 22% of patients with primary biliary cirrhosis. Serum or plasma albumin katarzyna urement (mass/volume)on 10-22-2021 Albumin [Mass/Vol] 4.0 g/dL 3.2-5.0 [facility] Work Phone: Serum or plasma albumin/glob ulin mass ratioon 10-22-2021 Albumin/Globulin [Mass ratio] 1.0 {ratio} 0.9-2.4 [facility] Work Phone: Serum or plasma [id number] protein tumor marker measurement (units/volume)on 10-22-2021 AFP.tumor marker Qn 2.2 ng/mL [facility] Work Phone: Comment on above: [facility] El ectrochemiluminescenceImmunoassay (ECLIA)Values obtained with different assay methods orkits cannot be used interchangeably. Resultscannot be interpreted as absolute evidence of thepresence or absence of malignant disease.This test is not interpretable in females.Effective November 01, 2021 AFP, Serum, Tumor Marker reference interval will be changing to: Age Male Female 0 - 7 days 0.0 - 45219.8 0.0 - 02953.8 8 - 30 days 0.0 - 59835.4 0.0 - 11252.4 1 month 0.0 - 1747.8 0.0 - 1600.3 2 months 0.0 - 391.1 0.0 - 550.0 3 months 0.0 - 225.8 0.0 - 339.9 4 months 0.0 - 230.6 0.0 - 230.6 5 months 0.0 - 118.0 0.0 - 234.0 6 months 0.0 - 97.2 0.0 - 97.2 7 - 11 months 0.0 - 60.3 0.0 - 60.3 1 year 0.0 - 21.4 0.0 - 21.4 2 years 0.0 - 9.4 0.0 - 10.1 3 - 4 years 0.0 - 5.5 0.0 - 5.5 5 years 0.0 - 3.6 0.0 - 4.2 6 - 12 years 0.0 - 3.9 0.0 - 3.9 13 - 17 years 0.0 - 4.3 0.0 - 4.3 18 - 30 years 0.0 - 5.7 0.0 - 4.7 31 - 50 years 0.0 - 6.9 0.0 - 6.4 51 - 80 years 0.0 - 8.4 0.0 - 9.2 >80 years 0.0 - 6.4 0.0 - 8.7 Serum or plasma angiotensin converting enzyme measurement (enzymatic activity/volume)on 10-22-2021 Angiotensin converting enzyme [Catalytic activity/Vol] 61 U/L [facility] Work Phone: Serum or plasma calcium katarzyna urement (mass/volume)on 10-22-2021 Calcium [Mass/Vol] 9.1 mg/dL 8.5-10.1 [facility] Work Phone: Serum or plasma creatinine m easurement (mass/volume)on 10-22-2021 Creatinine [Mass/Vol] 0.74 mg/dL 0.55-1.02 [facility] Work Phone: Comment on above: The validity of the calculated GFR & GFRAA in patients over 70 years has not been determined. Clinical correlation is essential. Serum or plasma ferritin walker surement (mass/volume)on 10-22-2021 Ferritin [Mass/Vol] 171 ng/mL 8-252 [facility] Work Phone: Serum or plasma hepatitis B virus surface antigen detection by immunoassayon 10-22-2021 HBV surface Ag IA Ql Negative Negative [facility] Work Phone: Serum or plasma urea nitroge n measurement (mass/volume)on 10-22-2021 Urea nitrogen [Mass/Vol] 20 mg/dL 7-18 [facility] Work Phone: Serum perinuclear neutrophil cytoplasmic antibody titer by immunofluorescenceon 10-22-2021 Neutrophil cytoplasmic Ab.perinuclear IF (S) [Titer] <1:20 titer Neg:<1:20 [facility] Work Phone: Comment on above: The presence of posi tive fluorescence exhibiting P-ANCA orC-ANCA patterns alone is not specific for the diagnosis ofWegener's Granulomatosis (WG) or microscopic polyangiitis.Decisions about treatment should not be based solely onANCA IFA results. The [employer] ANCA [employer] Consensusrecommends follow up testing of positive sera with both IN-3 and MPO-ANCA enzyme immunoassays. As many as 5% serumsamples are positive only by EIA. Ref. AM J Clin [id number];111:507-513. Thin prep Papanicolaou smear with manual screeningon 10-22-2021 Thin prep Papanicolaou smear with manual screening 50 U/L 15-37 [facility] Work Phone: Thin prep Papanicolaou smear with manual screening 6 5-15 [facility] Work Phone: Thin prep Papanicolaou smear with manual screening 219 U/L 84-246 [facility] Work Phone: Thin prep Papanicolaou smear with manual screening 139 ug/dL [facility] Work Phone: Comment on above: Detection Limit = 5 Whole blood hemoglobin A1c/t otal hemoglobin ratio (mass fraction)on 10-22-2021 HbA1c (Bld) [Mass fraction] 5.9 % 3.8-5.6 [facility] Work Phone: Comment on above: Normal < 5.7 % Predi abetic 5.7 - 6.4 % Diabetic >or= 6.5 % Please note range changes. Vital Signs Date Time Vital Sign Value Performing Clinician Faci lity 11-06-2024 08:35-0400 Body temperature 98.7 [degF] Dr. Siddhartha Meadows MD Work Phone: [facility] 11-06-2024 08:35-0400 Diastolic blood pressure 68 mm[Hg] Dr. Siddhartha Meadows MD Work Phone: [facility] 11-06-2024 08:35-0400 Heart rate 80 /min Dr. Siddhartha Meadows MD Work Phone: [facility] 11-06-2024 08:35-0400 Respiratory rate 17 /min Dr. Siddhartha Meadows MD Work Phone: [facility] 11-06-2024 08:35-0400 SaO2% (BldA) [Mass fraction] 96 % Dr. Siddhartha Meadows MD Work Phone: [facility] 11-06-2024 08:35-0400 Systolic blood pressure 130 mm[Hg] Dr. Siddharhta Meadows MD Work Phone: [facility] 03-22-2023 09:20-0400 Body temperature 99.2 [degF] Dr. Dank Meadows Work Phone: [facility] 03-22-2023 09:20-0400 Diastolic blood pressure 63 mm[Hg] Dr. Dank Meadows Work Phone: [facility] 03-22-2023 09:20-0400 Heart rate 78 /min Dr. Dank Meadows Work Phone: [facility] 03-22-2023 09:20-0400 Respiratory rate 16 /min Dr. Dank Meadows Work Phone: [facility] 03-22-2023 09:20-0400 SaO2% (BldA) [Mass fraction] 95 % Dr. Dank Meadows Work Phone: [facility] 03-22-2023 09:20-0400 Systolic blood pressure 124 mm[Hg] Dr. Dank Meadows Work Phone: [facility] 03-22-2023 08:16-0400 Body height 162.[address] Dank Meadows Work Phone: [facility] 03-22-2023 08:16-0400 Body mass index (BMI) [Ratio] 34.4 kg/m2 Dr. Dank Meadows Work Phone: [facility] 03-22-2023 08:16-0400 Body weight 91.[address] Dank Meadows Work Phone: [facility] 12-24-2021 07:20-0400 Body temperature 99 [degF] Dr. Dank Meadows Work Phone: [facility] Work Phone: 12-24-2021 07:20-0400 Diastolic blood pressure 70 mm[Hg] Dr. Dank Meadows Work Phone: [facility] Work Phone: 12-24-2021 07:20-0400 Heart rate 65 /min Dr. Dank Meadows Work Phone: [facility] Work Phone: 12-24-2021 07:20-0400 Respiratory rate 16 /min Dr. Dank Meadows Work Phone: [facility] Work Phone: 12-24-2021 07:20-0400 SaO2% (BldA) [Mass fraction] 97 % Dr. Dank Meadows Work Phone: [facility] Work Phone: 12-24-2021 07:20-0400 Systolic blood pressure 113 mm[Hg] Dr. Dank Meadows Work Phone: [facility] Work Phone: 12-24-2021 06:01-0400 Body height 162.[address] Dank Meadows Work Phone: [facility] Work Phone: 12-24-2021 06:01-0400 Body mass index (BMI) [Ratio] 38.3 kg/m2 Dr. Dank Meadows Work Phone: [facility] Work Phone: 12-24-2021 06:01-0400 Body weight 101.[address] Dank Meadows Work Phone: [facility] Work Phone: Encounters Encounter Date Encounter Type Care Provider Facility Start: 07-07-2025 ambulatory Siddhartha Meadows [facility] lity:[facility] Start: 02-17-2025 ambulatory Siddhartha Bowen lity:[facility] Start: 02-17-2025 Non-patient / Non-visit [facility]. John Vazquez MD [facility] Start: 02-14-2025 End: 02-14-[address] Siddhartha Meadows MD Work Phone: [facility] Work Phone: Start: 02-14-2025 End: 02-14-[address] Siddhartha Meadows MD -[facility] Work Phone: Start: 02-14-2025 End: 02-14-2025 ambulatory Siddhartha Meadows Facility:[facility] Start: 11-06-2024 End: 11-06-2024 Patient encounter procedure John LOUIE [facility] Work Phone: Start: 11-06-2024 End: 11-06-2024 ambulatory John LOUIE Facility:[facility] Start: 07-30-2024 End: 07-30-2024 ambulatory Dulce Horn NP Facility:[facility] Start: 07-16-2024 End: 07-16-2024 ambulatory Siddhartha Meadows Facility:[facility] Start: 08-30-2023 End: 08-30-2023 ambulatory [facility] Work Phone: Start: 08-30-2023 End: 08-30-2023 Patient encounter procedure [facility] Start: 07-14-2023 End: 07-14-[address] Dank Meadows Work Phone: [facility] Work Phone: Start: 07-14-2023 End: 07-14-[address] Dank Meadows Work Phone: [facility] Breast Imaging Work Phone: Start: 03-22-2023 Non-patient / Non-visit Dr. Dank Meadows Work Phone: [facility] Start: 03-22-2023 End: 03-22-2023 Admission to same day surgery center Dr. Dank Meadows Work Phone: [facility]Endoscopy Work Phone: Start: 11-14-2022 End: 11-14-[address] [facility] Work Phone: Start: 11-14-2022 End: 11-14-2022 Patient encounter procedure [facility] Start: 07-25-2022 End: 07-25-2022 ambulatory [facility] spital Work Phone: Start: 07-25-2022 End: 07-25-2022 Patient encounter procedure [facility] Start: 06-02-2022 End: 06-02-[address] Dank Meadows Work Phone: [facility] Work Phone: Start: 06-02-2022 End: 06-02-[address] Dank Meadows Work Phone: [facility]-Outpatient Breast Imaging Start: 03-29-2022 End: 03-29-[address] Dank Meadows Work Phone: [facility] Gastroenterology Start: 12-24-2021 Non-patient / Non-visit Dr. Dank Meadows Work Phone: [facility] Start: 12-24-2021 End: 12-24-2021 Admission to same day surgery center Dr. Dank Meadows Work Phone: [facility]-Endoscopy Start: 11-05-2021 End: 11-05-[address] Dank Meadows Work Phone: [facility], [facility] Start: 10-22-2021 End: 10-22-[address] Dank Medaows Work Phone: [facility]-Laboratory Start: 10-22-2021 End: 10-22-[address] Dank Meadows Work Phone: [facility] Gastroenterology Start: 09-07-2021 Non-patient / Non-visit Dr. Dank Meadows Work Phone: [facility] Start: 09-06-2021 End: 09-06-[address] Dank Meadows Work Phone: [facility]-Pulmonary Services/Neurology Procedures Date Procedure Procedure Detail Performing Clinician Start: 02-14-2025 CT angiography of coronary arteries Dr. Siddhartha Meadows MD Work Phone: Start: 07-14-[address] Dank Meadows Work Phone: Start: 03-22-[address] Dank Meadows Work Phone: Start: 07-25-2022 Ultrasonography of abdomen Start: 07-25-2022 Ultrasound elastography Start: 06-02-[address] Dank Meadows Work Phone: Start: 12-24-2021 End: 12-24-[address] Dank Meadows Work Phone: Start: 12-24-[address] Alex Meadows Work Phone: Start: 11-05-[address] Alex Meadows Work Phone: Start: 11-05-[address] Dank Meadows Work Phone: Plan of Treatment Date Care Activity Detail Author Start: 03-22-[address] [facility] Work Phone: Ultrasound elastography [facility] Work Phone: US Abdomen limited [facility] Work Phone: Payers Date Payer Category Payer Unknown [id number] 2024 Self-pay [id number] 2024 Private Health Insurance [id number] 2011 Private Health Insurance [id number] Unknown [id number] Unknown [id number] [id number] [id number] Unknown [id number] [id number] [id number] Unknown [id number] 2.16.8 [id number] Unknown [id number] 2.16.8 [id number] Unknown [id number] 2.16.8 [id number] Unknown [id number] [id number] [id number] Social History Date Type Detail Facility [facility] Work Phone: Start: 12-22-2021 End: 03-22-2023 Tobacco smoking status NHIS Unknown if ever smoked [facility] Start: 1965 Sex Assigned At Female W [facility] Start: 03-22-2023 Tobacco smoking stat us NHIS Never smoked tobacco (finding) [facility] Medical Equipment Procedure Code Equipment Code Equipment Origin al Text Equipment Identifier Dates EGD, with monitored anesthesia care PROBE,PH CAPSULE WITH DEL SYS FDA Start: 12-24-2021 EGD, with monitored anesthesia care PROBE,PH CAPSULE WITH DEL SYS FDA Start: 12-24-2021 EGD, with monitored anesthesia care PROBE,PH CAPSULE WITH DEL SYS FDA Start: 12-24-2021 EGD, with monitored anesthesia care PROBE,PH CAPSULE WITH DEL SYS FDA Start: 12-24-2021 EGD, with monitored anesthesia care PROBE,PH CAPSULE WITH DEL SYS FDA Start: 12-24-2021 EGD, with monitored anesthesia care PROBE,PH CAPSULE WITH DEL SYS FDA Start: 12-24-2021 Goals Date Patient Goal Desired Activity /State Mental Status Date Assessment Result Facility 03-22-2023 Cognitive function Voice/Name [facility] Work Phone: 12-24-2021 Cognitive function Voice/Name [facility] Work Phone: Radiology Diagnostic study note 02-17-2025 Note Date & Type Note Facility 02-17-2025 Radiology Diagnostic study note [facility] Imaging Services [address] [place] [address] 02/17/25 1024 MR#: [id number] Acct: [id number] Name: VIKAS LEDBETTER Rep #:[id number] : 1965 59 From: John Vazquez MD PCP: Dr. Siddhartha Meadows MD Status :REG CLI Y Location: CT Calcium Scoring Date of Study:: 02/14/25 Indications Indications: Dyslipidemia Coronary Calcium Scoring: High-resolution Computed Tomographic imaging of the chest was performed on [02/14/2025], with particular attention paid to the coronary arteries. Images from the examination were analyzed for the presence and extent of coronary artery calcification , using coronary calcium quantification software. The patient tolerated the procedure well and there were no complications. The results of the coronary calcification analysis are provided below. Findings Coronary Artery Left Main (LM): 0 Left Anterior Descending (LAD): 0 Left Circumflex (LCX): 0 Right Coronary Artery (RCA): 0 Total Agatston Score: 0 Percentile Rankin Calcium Scoring Interpretation: Different methods to categorize the overall amount of coronary plaque. Overall amount CAC SIS Visual of coronary plaque P1 Mild -100 <2 1-2 vessels with mild amount of plaque P2 Moderate 101-300 3-4 1-2 vessels with moderate amount, 3 vessels with mild amount of plaque P3 Severe 301-999 5-7 3 vessels with moderate amount, 1 vessel with severe amount of plaque P4 Extensive >1000 >8 2-3 vessels with severe amount of plaque Conclusion: No atherosclerotic plaquing noted. 02/17/25 1025 Date __ _ John Vazquez MD Cosigner Signature (if applicable): Date ___ CC: Dr. Siddhartha Meadows MD; Dr. John Vazquez MD ~ Signed [facility] Work Phone: Radiology Diagnostic study note 02-15-2025 Note Date & Type Note Facility 02-15-2025 Radiology Diagnostic study note [facility] Imaging Services [address] [place], [place] [address] Limited Chest CT Cardiac Only MR#: [id number] Acct: [id number] Name: VIKAS LEDBETTER Rep #: [id number] : 1965 F 59 From: Tito Barajas MD PCP: Dr. Siddhartha Meadows MD Status: REG CLI Study:Limited Chest CT Cardiac Only Date of E xam: 02/14/25 Exam# [id number] Ordering Dr: Mignon Meadows MD PROCEDURE: LIMITED CHEST CT CARDIAC ONLY 02/14/2025 REASON FOR EXAM: DYSLIPIDEMIA TECHNIQUE: LIMITED CHEST CT CARDIAC ONLY Coronal and Sagittal reconstruction series were provided. CONTRAST: None. One or more dose reduction techniques were used (e.g., Automated exposure control, adjustment of the mA and/or kV according to patient size, use of iterative reconstruction technique). RADIATION DOSE SUMMARY: CTDlvol: 12.19 mGy DLP: 243.97 mGycm COMPARISON: 07/21/2021. FINDINGS: Small sliding hiatal hernia. Normal unenhanced main pulmonary artery and right and left pulmonary arteries. Normal bilateral peripheral pulmonary arteries. Normal thoracic aorta and visualized great vessels. There is no demonstrated aortic aneurysm. Normal heart and pericardium. Normal mediastinum. Normal hilar regions. Normal visualized trachea and bronchi. The lungs are well expanded. Normal pulmonary parenchyma. Normal pleura. Mild diffuse spondylosis. Normal visualized upper abdomen. CT/Limited Chest CT Cardiac Only IMPRESSION: Small sliding hiatal hernia. Otherwise, unremarkable exam. Reading Location: [place] [address] CC: Dr. Siddhartha Meadows MD ~ [employer]: Signed [facility] Evaluation note Note Date & Type Note Facility Evaluation note Diagnosis Onset Date Gastroesophageal reflux disease acute Hepatomegaly acute [facility] Work Phone: Evaluation note Note Date & Type Note Facility Evaluation note Diagnosis Onset Date Cough chronic Diabetes chronic Hepatomegaly chronic SOLANO (nonalcoholic steatohepatitis) chronic [facility] Work Phone: Evaluation note Note Date & Type Note Facility Evaluation note No assessment information availa ble [facility] Work Phone: Evaluation note Note Date & Type Note Facility Evaluation note Diagnosis Onset Date Hx of colonic polyps acute [facility] Work Phone: Reason for referral (narrative) Note Date & Type Note Facility Reason for referral (narrative) No reason for referral information available [facility] Work Phone: Chief Complaint and Reason for Visit Chief Complaint COVID 19 COVID 19 Gastroesophageal reflux disease (GERD) E ORDERS HEPATOMEGALY Reason for Visit Gastroesophageal ref lux disease Hepatomegaly Chief Complaint 3 M FU SCREENING Reason for Visit Cough Diabetes Hepatomegaly SOLANO (nonalcoholic steatohepatitis) Chief Complaint SCREENING LIVER DISEASE Chief Complaint LIVER DISEASE Chief Complaint SCREENING Reason for Visit Hx of colonic polyps Chief Complaint SCREENING Chief Complaint Admit Date COUGH, CONGESTION, SORE THROAT, EARS FEE L CLOGGED November 06, 2024 8:29am DYSLIPIDEMIA February 14, 2025 1:36 pm DYSLIPIDEMIA February 17, 2025 10:2 4am Advance Directives No Advanced Directives Records Found Advance Directive Response Recorded Date/ Time Living Will No December 22, 2021 1:30pm Power of Window Glazier No December 22 1:30pm Advance Directive Response Recorded Date/ Time Living Will No December 22, 2021 12:30pm Power of Window Glazier No December 22 12:30pm Advance Directive Response Recorded Date/ Time Name of Medical Power of Window Glazier POA March 17, 2023 10:56am Living Will Yes March 17, 2023 10:56am Power of Window Glazier Yes March 17 10:56am Advance Directive Response Recorded Date/ Time Living Will Yes March 17, 2023 10:56am Power of Window Glazier Yes March 17 10:56am Summary Purpose Family History No Family History Records Found Additional Source Comments Goals (unrecognized section and content) Goals may be documented in a n alternate sectionGoals may be documented in an alternate sectionGoals may be documented in an alternate sectionGoals may be documented in an alternate sectionGoals may be documented in an alternate sectionGoals may be documented in an alternate section Care Teams (unrecognized sec tion and content) Team Status: Active Member Role Status Dates Dr. Dank Meadows MD Family Provider Active Dr. Dank Meadows MD Primary Care Provider Activ e Team Status: Inactive Member Role Status Dates Dr. Dank Meadows MD Primary Care Provider Activ e Dr. Joseph Bowen DO Attending Provider, Referring Provider Active Team Status: Inactive Member Role Status Dates Dr. Dank Meadows MD Primary Care Provider, Atte nding Provider Active Team Status: Active Member Role Status Dates Dr. Dank Meadows MD Primary Care Provider, Refe rring Provider Active Dr. Mary Colin MD Attending Provider, Other Pro vider Active Team Status: Inactive Member Role Status Dates Dr. Dank Meadows MD Primary Care Provider, Refe rring Provider Active Dr. Mary Colin MD Attending Provider Active Team Status: Inactive Member Role Status Dates Dr. Dank Meadows MD Primary Care Provider, Attending Provider, Referring Provider Active Team Status: Inactive Member Role Status Dates Dr. Dank Meadows MD Primary Care Provider Activ e Lindsey Byrd MD Attending Provider Active Team Status: Active Member Role Status Dates Dr. Siddhartha Meadows MD Primary Care Provider Acti ve Team Status: Inactive Member Role Status Dates Dr. Siddhartha Meadows MD Primary Care Provider Acti ve Start: November 06, 2024 End: November 06, 2024 Dr. Siddhartha Meadows MD Referring Provider Active Start: November 06, 2024 End: November 06, 2024 John LOUIE, PA Attending Provider Active Start: November 06, 2024 End: November 06, 2024 Team Status: Inactive Member Role Status Dates Dr. Siddhartha Meadows MD Primary Care Provider Acti ve Start: February 14, 2025 End: February 14, 2025 Dr. Siddhartha Meadows MD Attending Provider Active Start: February 14, 2025 End: February 14, 2025 Dr. Siddhartha Meadows MD Referring Provider Active Start: February 14, 2025 End: February 14, 2025 Team Status: Active Member Role Status Dates Dr. Siddhartha Meadows MD Primary Care Provider Acti ve Start: February 17, 2025 Dr. Siddhartha Meadows MD Referring Provider Active Start: February 17, 2025 Dr. Siddhartha Meadows MD Other Provider Active Start: February 17, 2025 Dr. John Vazquez MD Attending Provider Active S tart: February 17, 2025 INFORMATION SOURCE (unrecogn ized section and content) DATE CREATED AUTHOR 07/10/2025 [facility] FOR RECORDS PERTAINING TO PATIENTS WHO ARE OR HAVE BEEN ENROLLED IN A CHEMICAL DEPENDENCY/SUBSTANCEABUSE PROGRAM, SOME INFORMATION MAY BE OMITTED. This clinical summary was aggregated from multiple sources. Caution should be exercised in using it in the provision of clinical care. This summary normalizes information from multiple sources, and as a consequence, information in this document may materially change the coding, format and clinical context of patient data. In addition, data may be omitted in some cases. CLINICAL DECISIONS SHOULD BE BASED ON THE PRIMARY CLINICAL RECORDS. [facility]. provides no warranty or guarantee of the accuracy or completeness of information in this document.
[2025-08-10 13:06] VITALS: O2SAT 99
[2025-08-10 13:10] LABS: Hematocrit 43.0 % (37-47); Hemoglobin 14.2 g/dL (12.0-15.0); Immature Granulocytes Count 0.060 X10^3/uL (0.0-0.0); Mean Corp Hgb Conc 33.0 g/dL (32-36); Mean Corpuscular Volume 88.8 fL (81-99); Mean Platelet Vol. 8.8 fl (6.2-12.0); NRBC Flagged by Analyzer 0 % (0-5); Platelet Count 261 K/mm3 (150-450); RBC Distribution Width CV 12.3 % (11.6-14.6); RBC Distribution Width SD 40.2 fl (35.1-43.9); Red Blood Count 4.84 M/mm3 (4.2-5.4); White Blood Count 12.5 K/mm3 (4.4-11.0)
[2025-08-10 13:18] LABS: Anion Gap 11 (5-15); BUN 19 mg/dL (4-19); BUN/Creat Ratio 29.5 RATIO (10-20); Calcium,Total 9.8 mg/dL (7.6-11.0); Carbon Dioxide 26.0 mmol/L (21.0-32.0); Chloride 104 mmol/L (98-108); Estimated Creatinine Clearance 108.78 ml/min (50-250); Glucose 159 mg/dL (70-99); Potassium 4.9 mmol/L (3.3-5.1); Troponin T High Sensitivity < 6 ng/L (<=14)
[2025-08-10 14:00] VITALS: BP 128/66; PULSE 79; RESP 14; O2SAT 99
[2025-08-10 14:14] VITALS: BP 128/66; PULSE 79; RESP 14; TEMP 36.8; O2SAT 99
== END 2025-08-10 14:30 | disposition home or self-care (01) ==
PROVIDERS: Emergency Provider Emergency Medicine; PCP Family Medicine; Visit Provider Emergency Medicine
DX: K22.4 Dyskinesia of esophagus (principal); J69.0 Pneumonitis due to inhalation of food and vomit
CPT/HCPCS: 71045; 80048; 84484; 85025; 93005; 96361; 96374; 96375; 99284; A4216; J2405

== ENCOUNTER 2025-08-20 12:06 | Day surgery (SDC) | payer OTHER, SELFPAY ==
--- NOTE | 2025-08-15 16:38 | PAT.ANESEVAL ---
Pre-Assessment Diagnosis/Proposed Procedure Planned Operative Procedure(s): EGD Anesthesia History Anesthesia History - planner scheduler: Anesthesia History - planner scheduler Hx Hospitalization No 08/15/25 15:53 Any Problems With Anesthesia Yes: PONV 08/15/25 15:53 Cholinesterase deficiency No 08/15/25 15:53 You/Your Family Experience No 08/15/25 15:53 fever (hyperthermia) with Relationship Recent Exposure to Contagious No 03/22/23 08:16 Disease Does patient have nerve No 08/15/25 15:53 stimulator Patient instructed to have device shut off --Does patient have Pacemaker or ICD? When Was Last Pacemaker Check QUESTION #4 FULL TEXT: You/Your Family Experience fever (hyperthermia) with Anesthesia Last Oral Intake Last Oral intake: Last Oral Intake NPO since Meds taken in AM with sips of water? Meds patient instructed to take am of surgery PONV PONV - planner scheduler: PONV - planner scheduler Female Yes 08/15/25 15:53 HX of Motion Sickness Yes 08/15/25 15:53 HX of N/V After Surgery Yes 08/15/25 15:53 Non-Smoker Yes 08/15/25 15:53 Duration of Surgery greater No 08/15/25 15:53 than 60 minutes Number of Risk Factors 4 08/15/25 15:53 PONV Score Severe Risk 08/15/25 15:53 Height & Weight Height & Weight: Anesthesia: Height & Weight Height 5 ft 4 in 08/10/25 12:09 Respiratory Assessment Respiratory Assessment - planner scheduler: Respiratory Tract Infection Hx - planner scheduler Hx Respiratory Tract Infection Yes: PNEUMONIA, FINISHING 08/15/25 15:53 ATB 08/16/25 STOP Sleep Apnea STOP Sleep Apnea - planner scheduler: STOP Sleep Apnea - planner scheduler Hx Hypertension No 08/15/25 15:53 Hx Sleep Apnea No 08/15/25 15:53 CPAP No 03/22/23 09:05 BIPAP Do you snore loudly (louder Yes 08/15/25 15:53 than talking or can be heard Do you often feel tired/ No 08/15/25 15:53 fatigued/ sleepy during daytime? Has anyone observed you stop Yes 08/15/25 15:53 breathing during sleep? STOP Results Positive 08/15/25 15:53 QUESTION #5 FULL TEXT : Do you snore loudly (louder than talking or can be heard through closed doors)? Tobacco Use History Tobacco Use History - planner scheduler: Tobacco Use History - planner scheduler Tobacco Use Smoking Status Never smoker 08/15/25 15:53 Hx Tobacco Use No 08/15/25 15:53 Years Smoking Packs Smoked per Day Smoking Cessation Date was within the last 15 years Hx Smoking Cessation Date Hx Smoking Cessation Counseling Hematologic Medial History Hematologic Hx - planner scheduler: Hematologic Medical Hx - audit associate Hx of Blood Transfusion No 08/15/25 15:53 Hx of Transfusion in last 3 No 08/15/25 15:53 Months Date of Last Transfusion (if within last 3 months) Ever experience any problems No 08/15/25 15:53 with transfusion(s)? Specify any problems Hx of Preganancy in last 3 No 08/15/25 15:53 Months Nurse Filling Out Transfusion MGRIFFITH 08/15/25 15:53 & Questions: Date: 08/15/25 08/15/25 15:53 Time: 15:56 08/15/25 15:53 Patient unable to answer at this time (ie. confused, unrespo /Reproduction History /Reproductive History - planner scheduler: /Reproductive Hx- planner scheduler Hx Now Gestational Age (in weeks): EDC: Hx Hx Para Hx Section SAB No 12/22/21 13:30 Does the father of the baby or his family experience fever w Father of the baby Malignant Hypertension history comment [facility] Medical History (Updated 08/15/25 @ 16:03 by Faye Tsai) Restless legs Post-menopausal Fatty liver Seasonal allergies History of IBS Chronic cough PONV (postoperative nausea and vomiting) Psoriatic arthritis IFG (impaired fasting glucose) Hx of colonic polyps Wears contact lenses Diabetes Back pain Difficulty swallowing History of hiatal hernia Gastric reflux Non-smoker History of chronic cough IBS (irritable bowel syndrome) Home Medications ?Medication ?Instructions ?Recorded ?Last Taken ?Type Lactobacillus acidophilus 10 100 mmu cells PO DAILY 03/17/23 Unknown History billion cell capsule (Probiotic) loratadine 10 mg tablet (Claritin) 10 mg PO DAILY PRN 03/17/23 Unknown History levofloxacin 500 mg tablet 500 mg PO DAILY 7 days #7 tabs 08/10/25 Unknown Rx omeprazole magnesium 10 mg oral 20 mg PO DAILY 30 days #30 ea 08/10/25 Unknown Rx suspension,delayed release (Prilosec) duloxetine 30 mg capsule,delayed 30 mg PO DAILY 08/15/25 Unknown History release Allergy/AdvReac Type Severity Reaction Status Date / Time cholestyramine Allergy Intermediate Rash Verified 08/15/25 15:49 bupropion (From Contrave) AdvReac Nausea Verified 08/15/25 15:49 naltrexone (From Contrave) AdvReac Nausea Verified 08/15/25 15:49 phentermine (From Qsymia) AdvReac Other Verified 08/15/25 15:49 topiramate (From Qsymia) AdvReac Other Verified 08/15/25 15:49 venlafaxine (From Effexor) AdvReac Nausea Verified 08/15/25 15:49 Family History Sister Colon polyps Surgical History History of back surgery History of esophagogastroduodenoscopy (EGD) Hx of colonoscopy History of foot surgery History of tonsillectomy History of tubal ligation Social History household members: spouse current occupational status: employed Smoking Status: Never smoker Audit: Pertinent Findings Pertinent Findings EKG Perinent findings: 08/10/2025. Normal sinus rhythm. Nonspecific ST abnormality. Recommendation Anesthesia Recommendation Anesthesia recommendation: OPTIMIZED for anesthesia
[2025-08-20] VITALS (8 sets, daily range): BP systolic 134–145; BP diastolic 71–78; PULSE 63–90; RESP 16–20; TEMP 36.1–36.7; O2SAT 95–100; BMI 35.9
--- OUTSIDE RECORDS SUMMARY | 2025-08-20 12:11 | XMS RPT_ITS | CCD ---
Author Organization [facility] Care Team Providers [employer] Specialist Name Role Phone Dr. Dank Meadows Primary Care Provider Dr. Dank Meadows Referring Provider Dr. Dank Meadows Other Provider [phone] Dr. Dank Arambula Other Provider Dr. Mani Agudelo Attending Provider FriendDr. Ruiz Attending Provider FriendDr. Ruiz Other Provider Dr. Dank Meadows Primary Care Provider Dr. Dank Meadows Referring Provider Dr. Joseph Bowen Attending Provider Dr. Dank Meadows Primary Care Provider [phone] Dr. Dank Meadows Referring Provider Dr. Mary Colin Attending Provider Dr. Mary Colin Other Provider Dr. Siddhartha Meadows MD Primary Care Provider Dr. Siddhartha Meadows MD Referring Provider John Scruggs Attending Provider Dr. Siddhartha Meadows MD Attending Provider Dr. Siddhartha Meadows MD Other Provider Tyalor PARRY, Dr. Lopez Attending Provider Siddhartha Meadows Primary Care Unavailable Siddhartha Meadows Attending Unavailable Siddhartha Meadows Referring Unavailable Justina RAIL CAR WELDER, Dulce Attending Unavailable Justina RAIL CAR WELDER, Dulce Referring Unavailable Dori, Siddhartha Primary Care Unavailable Siddhartha Meadows Attending Unavailable Dori, Alexer Referring Unavailable Ranney, Christtomier Primary Care Unavailable Siddhartha Meadows Attending Unavailable Dori, Christtomier Primary Care Unavailable John Vazquez Attending Unavailable Siddhartha Meadows Referring Unavailable [facility], [facility] Primary [facility] Unavailable Siddhartha Meadows Consulting Unavailable John Vazquez Attending Unavailable Siddhartha Meadows Referring Unavailable Dori, Alexer Primary Care Unavailable John Scruggs Attending Unavailable Siddhartha Meadows Referring Unavailable Siddhartha Meadows Primary Care Unavailable Allergies Allergy Classification Reported Allergen(s) Allergy Type Date of Onset Reaction(s) Facility (3 sources) buPROPion Drug Allergy 03-17-2023 [facility] (3 sources) Naltrexone Drug Allergy 03-17-2023 [facility] (3 sources) Phentermine Drug Allergy 03-17-2023 [facility] Comment on above: Paresthesias (3 sources) topiramate Drug Allergy 03-17-2023 [facility] Comment on above: Paresthesias (3 sources) venlafaxine Drug Allergy 03-17-2023 [facility] (1 source) buPROPion Drug Allergy 11-06-2024 [facility] (1 source) Naltrexone Drug Allergy 11-06-2024 [facility] (1 source) Phentermine Drug Allergy 11-06-2024 [facility] (1 source) topiramate Drug Allergy 11-06-2024 [facility] (1 source) venlafaxine Drug Allergy 11-06-2024 [facility] Medications Current Medications Medication Drug Class(es) [...] DAY November 06, 2024 12:00am lactobacillus acidophilus [id number] unt oral capsule (3 sources) Start: 03-17-2023 [...] GGTP 76 IU/L Abnormal 0-60 [facility] Comment on above: Order Comment: Order Date: 07/07/25 Order Info: 0786-1 - CMP Order Info: 3016-3 - TSH Result Comment: Perf ormed at: - [facility] [address] [id number] Employee Benefits Coordinator: Jacob Bridges PhD, Phone: [phone] Performed By: #### L 533.3854 #### [facility] Laboratory [address] [place], [address] CBC W/Diff, Automatedon 06-28 Absolute Lymph 2.05 X10 3/uL Normal 0.83-4.51 [facility] Comment on above: Order Comment: Order Date: 07/07/25 Order Info: 018-1 - CBCD Order Info: [id number] - SED Performed By: #### L 501.5101, L501.9520, L100.0100, L101.9900, L500.4050 #### [facility] Laboratory [address] [place], [address] Absolute Neut 2.5 X10 3/uL Normal 2.0-7.7 [facility] Comment on above: Order Comment: Order Date: 07/07/25 Order Info: 183- - CBCD Order Info: [id number] - SED Performed By: #### L 501.5101, L501.9520, L100.0100, L101.9900, L500.4050 #### [facility] Laboratory [address] [place], [address] Basophils/100 WBC (Bld) 0.8 % Normal 0-1 [facility] Comment on above: Order Comment: Order Date: 07/07/25 Order Info: 01811-26 - CBCD Order Info: [id number] - SED Performed By: #### L 501.5101, L501.9520, L100.0100, L101.9900, L500.4050 #### [facility] Laboratory [address] [place], [address] Eosinophils/100 WBC (Bld) 5.4 % High 0-5 [facility] Comment on above: Order Comment: Order Date: 07/07/25 Order Info: 018- - CBCD Order Info: [id number] - SED Performed By: #### L 501.5101, L501.9520, L100.0100, L101.9900, L500.4050 #### [facility] Laboratory [address] [place], [address] Erythrocyte distribution width (RBC) [Ratio] 12.4 % Normal 11.6-14.6 [facility] Comment on above: Order Comment: Order Date: 07/07/25 Order Info: 183-08 - CBCD Order Info: 13880-1 - SED Performed By: #### L 501.5101, L501.9520, L100.0100, L101.9900, L500.4050 #### [facility] Laboratory [address] [place], [address] Hematocrit (Bld) [Volume fraction] 40.4 % Normal 37-47 [facility] Comment on above: Order Comment: Order Date: 07/07/25 Order Info: 183-08 - CBCD Order Info: 16584-1 - SED Performed By: #### L 501.5101, L501.9520, L100.0100, L101.9900, L500.4050 #### [facility] Laboratory [address] [place], [address] Hemoglobin (Bld) [Mass/Vol] 14.0 g/dL Normal 12.0-15.0 [facility] Comment on above: Order Comment: Order Date: 07/07/25 Order Info: 183-08 - CBCD Order Info: 47348-8 - SED Performed By: #### L 501.5101, L501.9520, L100.0100, L101.9900, L500.4050 #### [facility] Laboratory [address] [place], [address] IG% 0.200 Normal 0.0-0.9 [facility] Comment on above: Order Comment: Order Date: 07/07/25 Order Info: 018- - CBCD Order Info: [id number] - SED Result Comment: IG% - Immature Granulocytes (promyelocytes, myelocytes and metamyelocytes) > 1% indicates that a LEFT SHIFT is Present. Performed By: #### L 501.5101, L501.9520, L100.0100, L101.9900, L500.4050 #### [facility] Laboratory [address] [place], [address] Lymphocytes/100 WBC (Bld) 38.5 % Normal 19-41 [facility] Comment on above: Order Comment: Order Date: 07/07/25 Order Info: 01811-26 - CBCD Order Info: 34334-1 - SED Performed By: #### L 501.5101, L501.9520, L100.0100, L101.9900, L500.4050 #### [facility] [address] [place], [address] MCH (RBC) [Entitic mass] 30.0 pg Normal 27.0-32.0 [facility] Comment on above: Order Comment: Order Date: 07/07/25 Order Info: 183-08 - CBCD Order Info: 59974-1 - SED Performed By: #### L 501.5101, L501.9520, L100.0100, L101.9900, L500.4050 #### [facility] [address] [place], [address] MCHC (RBC) [Mass/Vol] 34.7 g/dL Normal 32-36 [facility] Comment on above: Order Comment: Order Date: 07/07/25 Order Info: 01811-26 - CBCD Order Info: 07985-1 - SED Performed By: #### L 501.5101, L501.9520, L100.0100, L101.9900, L500.4050 #### [facility] [address] [place], [address] MCV (RBC) [Entitic vol] 86.5 fL Normal 81-99 [facility] Comment on above: Order Comment: Order Date: 07/07/25 Order Info: 01811-26 - CBCD Order Info: 70949-1 - SED Performed By: #### L 501.5101, L501.9520, L100.0100, L101.9900, L500.4050 #### [facility] [address] [place], [address] Monocytes/100 WBC (Bld) 7.7 % Normal 0-10 [facility] Comment on above: Order Comment: Order Date: 07/07/25 Order Info: 018- - CBCD Order Info: 88215-0 - SED Performed By: #### L 501.5101, L501.9520, L100.0100, L101.9900, L500.4050 #### [facility] [address] [place], [address] Neutrophils/100 WBC (Bld) 47.4 % Normal 47-70 [facility] Comment on above: Order Comment: Order Date: 07/07/25 Order Info: 018- - CBCD Order Info: 28129-8 - SED Performed By: #### L 501.5101, L501.9520, L100.0100, L101.9900, L500.4050 #### [facility] [address] [place], [address] Nucleated RBC (Bld) [#/Vol] 0 10*3/uL Normal 0-5 [facility] Comment on above: Order Comment: Order Date: 07/07/25 Order Info: 018- - CBCD Order Info: 37713-7 - SED Performed By: #### L 501.5101, L501.9520, L100.0100, L101.9900, L500.4050 #### [facility] [address] [place], [address] Platelet mean volume (Bld) [Entitic vol] 9.0 fL Normal 6.2-12.0 [facility] Comment on above: Order Comment: Order Date: 07/07/25 Order Info: 0184-1 - CBCD Order Info: 11653-5 - SED Performed By: #### L 501.5101, L501.9520, L100.0100, L101.9900, L500.4050 #### [facility] [address] [place], [address] Platelets (Bld) [#/Vol] 275 10*3/uL Normal 150-450 [facility] Comment on above: Order Comment: Order Date: 07/07/25 Order Info: 018- - CBCD Order Info: [id number] - SED Performed By: #### L 501.5101, L501.9520, L100.0100, L101.9900, L500.4050 #### [facility] [address] [place], [address] RBC (Bld) [#/Vol] 4.67 10*6/uL Normal 4.2-5.4 [facility] Comment on above: Order Comment: Order Date: 07/07/25 Order Info: 01811-26 - CBCD Order Info: 70745-8 - SED Performed By: #### L 501.5101, L501.9520, L100.0100, L101.9900, L500.4050 #### [facility] [address] [place], [address] RDW SD 39.4 fl Normal 35.1-43.9 [facility] Comment on above: Order Comment: Order Date: 07/07/25 Order Info: 0184- - CBCD Order Info: 76986-9 - SED Performed By: #### L 501.5101, L501.9520, L100.0100, L101.9900, L500.4050 #### [facility] [address] [place], [address] WBC (Bld) [#/Vol] 5.3 10*3/uL Normal 4.4-11.0 [facility] Comment on above: Order Comment: Order Date: 07/07/25 Order Info: 0184- - CBCD Order Info: [id number] - SED Performed By: #### L 501.5101, L501.9520, L100.0100, L101.9900, L500.4050 #### [facility] [address] [place], [address] Comprehensive Metabolic Prof kusum 07-07-2025 Albumin [Mass/Vol] 4.5 g/dL Normal 3.5-5.0 [facility] Comment on above: Order Comment: Order Date: 07/07/25 Order Info: 0786- - CMP Order Info: 3015-10 - TSH Performed By: #### L 501.5101, L501.9520, L100.0100, L101.9900, L500.4050 #### [facility] [address] [place], [address] Albumin/Globulin [Mass ratio] 1.6 {ratio} Normal 0.9-2.4 [facility] Comment on above: Order Comment: Order Date: 07/07/25 Order Info: 0786- - CMP Order Info: 3015-10 - TSH Performed By: #### L 501.5101, L501.9520, L100.0100, L101.9900, L500.4050 #### [facility] [address] [place], [address] ALK PHOS 77 U/L Normal 35-104 [facility] Comment on above: Order Comment: Order Date: 07/07/25 Order Info: 0786- - CMP Order Info: 3015-10 - TSH Performed By: #### L 501.5101, L501.9520, L100.0100, L101.9900, L500.4050 #### [facility] [address] [place], [address] ALT [Catalytic activity/Vol] 46 U/L High <=34 [facility] Comment on above: Order Comment: Order Date: 07/07/25 Order Info: 0786-1 - CMP Order Info: 3015-10 - TSH Performed By: #### L 501.5101, L501.9520, L100.0100, L101.9900, L500.4050 #### [facility] [address] [place], [address] AST [Catalytic activity/Vol] 26 U/L Normal <=31 [facility] Comment on above: Order Comment: Order Date: 07/07/25 Order Info: 0786-1 - CMP Order Info: 3013 - TSH Performed By: #### L 501.5101, L501.9520, L100.0100, L101.9900, L500.4050 #### [facility] [address], [address] Bilirubin [Mass/Vol] 0.45 mg/dL Normal 0.00-1.30 [facility] Comment on above: Order Comment: Order Date: 07/07/25 Order Info: 0786-1 - CMP Order Info: 3013 - TSH Performed By: #### L 501.5101, L501.9520, L100.0100, L101.9900, L500.4050 #### [facility] [address] [place], [address] BUN/CRE 29.1 RATIO High 10-20 [facility] Comment on above: Order Comment: Order Date: 07/07/25 Order Info: 0786-1 - CMP Order Info: [id number] - TSH Performed By: #### L 501.5101, L501.9520, L100.0100, L101.9900, L500.4050 #### [facility] [address], [address] Calcium [Mass/Vol] 10.0 mg/dL Normal 7.6-11.0 [facility] Comment on above: Order Comment: Order Date: 07/07/25 Order Info: 0786-1 - CMP Order Info: 3016-3 - TSH Performed By: #### L 501.5101, L501.9520, L100.0100, L101.9900, L500.4050 #### [facility] [address], [address] Chloride [Moles/Vol] 104 mmol/L Normal 98-108 [facility] Comment on above: Order Comment: Order Date: 07/07/25 Order Info: 0786-1 - CMP Order Info: 3 - TSH Performed By: #### L 501.5101, L501.9520, L100.0100, L101.9900, L500.4050 #### [facility] [address] [place], [address] CO2 [Moles/Vol] 26.7 mmol/L Normal 21.0-32.0 [facility] Comment on above: Order Comment: Order Date: 07/07/25 Order Info: 0786-1 - CMP Order Info: 3015-10 - TSH Performed By: #### L 501.5101, L501.9520, L100.0100, L101.9900, L500.4050 #### [facility] [address] [place], [address] Creatinine [Mass/Vol] 0.60 mg/dL Low 0.70-1.20 [facility] Comment on above: Order Comment: Order Date: 07/07/25 Order Info: 0786- - CMP Order Info: 3015-10 - TSH Performed By: #### L 501.5101, L501.9520, L100.0100, L101.9900, L500.4050 #### [facility] [address] [place], [address] GAP 10 Normal 5-15 [facility] Comment on above: Order Comment: Order Date: 07/07/25 Order Info: 0786-1 - CMP Order Info: 3015-10 - TSH Performed By: #### L 501.5101, L501.9520, L100.0100, L101.9900, L500.4050 #### [facility] [address] [place], [address] GFR/1.73 sq M.predicted among non-blacks MDRD (S/P/Bld) [Vol rate/Area] 103 mL/min/{1.73_m2} Normal >60 [facility] Comment on above: Order Comment: Order Date: 07/07/25 Order Info: 0786-1 - CMP Order Info: 3015-10 - TSH Result Comment: mL/m in/1.73m2 CKD-EPI Creatinine Equation (2020) Performed By: #### L 501.5101, L501.9520, L100.0100, L101.9900, L500.4050 #### [facility] [address] [place], [address] Globulin (S) [Mass/Vol] 2.9 g/dL Normal 2.2-4.2 [facility] Comment on above: Order Comment: Order Date: 07/07/25 Order Info: 0786- - [facility] Order Info: 3015-10 - TSH Performed By: #### L 501.5101, L501.9520, L100.0100, L101.9900, L500.4050 #### [facility] Laboratory [address] [place], [address] Glucose [Mass/Vol] 114 mg/dL High 70-99 [facility] Comment on above: Order Comment: Order Date: 07/07/25 Order Info: 0786-1 - [facility] Order Info: 3015-10 - TSH Performed By: #### L 501.5101, L501.9520, L100.0100, L101.9900, L500.4050 #### [facility] Laboratory [address] [place], [address] Potassium [Moles/Vol] 4.2 mmol/L Normal 3.3-5.1 [facility] Comment on above: Order Comment: Order Date: 07/07/25 Order Info: 0786-1 - [facility] Order Info: 3015-10 - TSH Performed By: #### L 501.5101, L501.9520, L100.0100, L101.9900, L500.4050 #### [facility] [address] [place], [place], [address] Sodium [Moles/Vol] 141 mmol/L Normal 133-145 [facility] Comment on above: Order Comment: Order Date: 07/07/25 Order Info: 0786-1 - CMP Order Info: 3016-3 - TSH Performed By: #### L 501.5101, L501.9520, L100.0100, L101.9900, L500.4050 #### [facility] [address] [place], [address] T PROT 7.4 g/dL Normal 5.9-8.4 [facility] Comment on above: Order Comment: Order Date: 07/07/25 Order Info: 0786-1 - CMP Order Info: 30163 - TSH Performed By: #### L 501.5101, L501.9520, L100.0100, L101.9900, L500.4050 #### [facility] [address] [place], [place], [address] Urea nitrogen [Mass/Vol] 18 mg/dL Normal 4-19 [facility] Comment on above: Order Comment: Order Date: 07/07/25 Order Info: 0786-1 - CMP Order Info: 3016-3 - TSH Performed By: #### L 501.5101, L501.9520, L100.0100, L101.9900, L500.4050 #### [facility] Laboratory [address] [place], [address] Erythrocyte Sed Rateon 07-07 SED RATE 9 mm/hr Normal 0-30 [facility] Comment on above: Order Comment: Order Date: 07/07/25 Order Info: 0184-1 - CBCD Order Info: 17436-5 - SED Performed By: #### L 501.5101, L501.9520, L100.0100, L101.9900, L500.4050 #### [facility] [address] [place], [address] Thyroid Stim Hormone (TSH)on 07-07-2025 TSH 1.710 uIU/mL Normal 0.300-4.200 [facility] Comment on above: Order Comment: Order Date: 07/07/25 Order Info: 0786-1 - [facility] Order Info: 3016-3 - TSH Performed By: #### L 501.5101, L501.9520, L100.0100, L101.9900, L500.4050 #### [facility] [address] [place], [address] Vitamin D,25 Hydroxyon 07-07 Vitamin D 25-OH 33.8 ng/mL Normal 30-100 [facility] Comment on above: Order Comment: Order Date: 07/07/25 Order Info: 0786-1 - [facility] Order Info: 3016-3 - TSH Result Comment: Radha min D Status Deficiency: <20 ng/mL (50nmol/L) Insufficiency: 20-30 ng/mL (50-75 nmol/L) Sufficiency: 30-100 ng/mL (75-250 nmol/L) Toxicity: >100 ng/mL (>250 nmol/L) Performed By: #### L 506.1001 #### [facility] [address] [place], [place], [address] Coronary Angiography CTon Coronary Angiography CT [facility] Imaging Services [address] [place] [address] 02/17/25 1024 MR#: [id number] Acct: [id number] Name: VIKAS LEDBETTER Rep #: [id number] : 1965 59 From: John Vazquez MD [...] noted. 02/17/25 1025 Date John Vazquez MD [facility] Signature (if applicable): Date CC: Dr. Siddhartha Meadows MD; Dr. John Vazquez MD Signed Normal [facility] Limited Chest CT Cardiac Onl yon 02-14-[address] Cardiac Only [facility] Imaging Services [address] [place], [place] [address] Limited Chest CT Cardiac Only MR#: [id number] Acct: [id number] Name: VIKAS LEDBETTER Rep #: [id number] : 1965 F 59 From: Randolph collins MD PCP: Dr. Siddhartha Meadows MD Status: [facility] Study: Limited Chest CT Cardiac Only Date of Exam: Exam# [id number] Ordering Dr: Siddhartha Meadows PROCEDURE: LIMITED CHEST [...] hiatal hernia. Otherwise, unremarkable exam. Reading Location: [place] [address] CC: Dr. Siddhartha Meadows MD Administrative Services Director: Signed Normal [facility] Urgent Care Visit Reporton 0 11-06-2024 Urgent Care Visit Report [facility] [address], [address] [place] [address] OFFICE VISIT Date of Service: 11/06/24 MR#: [id number] Acct: [id number] Name: VIKAS LEDBETTER Rep #: [id number] : 1965 Provider: JACY Olivares Age/Sex: 59/F Location: [facility] Status: Signed Intake Vital Signs 06/03/24 09:28 [...] Complaint: chest congest, face pressure, ears plugged Pan Greaser Required: No Is patient in pain?: No [...] habitus Orientation: alert, awake and oriented x3 [facility] Head: normal to inspection Ears: hearing [...] (more content not included)... Normal [facility] PAP IG HPV HR APTIMAon 08-04 ADEQ Comment Normal . [facility] Comment on above: Order Comment: Portia londono Comment: [id number] Specimen Comment: Source.............[employer] Specimen Comment: Other..............Other Specimen Comment: No. of containers..01 ThinPrep Vial Result Comment: Sati sfactory for evaluation. Endocervical and/or squamous metaplastic cells (endocervical component) are present. Performed By: #### L 7400.0377 #### [facility] [address] [place], [address] COMM . Normal . [facility] Comment on above: Order Comment: Speci men Comment: [id number] Specimen Comment: Source.............[employer] Specimen Comment: Other..............Other Specimen Comment: No. of containers..01 ThinPrep Vial Performed By: #### L 7400.0377 #### [facility] Laboratory [address] [place], [place], [id number] COMMENT Comment Normal . [facility] Comment on above: Order Comment: Speci men Comment: [id number] Specimen Comment: Source.............Endocervix Specimen Comment: Other..............Other Specimen Comment: No. of containers..01 ThinPrep Vial Result Comment: This liquid based ThinPrep(R) pap test was screened with the use of an image guided system. Performed By: #### L 7400.0377 #### [facility] [address] [place], [place], [id number] DIAG Comment Normal . [facility] Comment on above: Order Comment: Speci men Comment: [id number] Specimen Comment: Source.............Endocervix Specimen Comment: Other..............Other Specimen Comment: No. of containers..01 ThinPrep Vial Result Comment: NEGA TIVE FOR INTRAEPITHELIAL LESION OR MALIGNANCY. Performed By: #### L 7400.0377 #### [facility] [address] [place], [place], [id number] HPV APTIMA, HR Negative Normal Negative [facility] Comment on above: Order Comment: Speci men Comment: [id number] Specimen Comment: Source.............Endocervix Specimen Comment: Other..............Other Specimen Comment: No. of containers..01 ThinPrep Vial Result Comment: This nucleic acid amplification test detects fourteen high- risk HPV types (16,18,31,33,35,39,45,51,52,56,58,59,66,68) without differentiation. Performed at: [address] [id number] Employee Benefits Coordinator: Neda Guillen MD, Phone: [phone] Performed at: =[address] [id number] Employee Benefits Coordinator: Neda Guillne MD, Phone: [phone] Performed By: #### L 7400.0377 #### [facility] [address] [place], [address] PAPSMR Comment Normal . [facility] Comment on above: Order Comment: Speci men Comment: [id number] Specimen Comment: Source.............Endocervix Specimen Comment: Other..............Other Specimen [...] By: #### L 7400.0377 #### [facility] [address] [place], [address] PERFORM Comment Normal . [facility] Comment on above: Order Comment: Speci men Comment: [id number] Specimen Comment: Source.............Endocervix Specimen Comment: Other..............Other Specimen Comment: No. of containers..01 ThinPrep Vial Result Comment: Rosa Brandt, Conveyor System Operator (ASCP) Performed By: #### L 7400.0377 #### [facility] [address] [place], [place], [id number] SCRN MAMM (CAD)W/ZOYA BILATo n 07-16-2024 SCRN MAMM (CAD)W/ZOYA BILAT [facility] Imaging Services [address] [place], [place] [address] SCRN MAMM (CAD)W/ZOYA BILAT MR#: [id number] Acct: [id number] Name: VIKAS LEDBETTER Rep #: [id number] : 1965 F 59 From: Dameon hobson MD PCP: Dr. Siddhartha Meadows MD Status: [facility] Study: SCRN MAMM (CAD)W/ZOYA BILAT Date of Exam: 06/28 05/21 Exam# [id number] Ordering Dr: Siddhartha Meadows [id number] MAMMOGRAPHY - BILATERAL SCREENING REASON FOR EXAM: [...] delay biopsy of a clinically suspicious abnormality. [id number] Electronically Signed: Dameon Alejandro MD at 11:07 EST , CC: Dr. Siddhartha Meadows MD Administrative Services Director: Signed Normal [facility] Absolute lymphocyte countOrd ered By: Lindsey Byrd on 08-30-2023 Lymphocytes Auto (Unsp spec) [#/Vol] 1.61 10*3/uL 0.83-4.51 [facility] Basophil percentageOrdered B y: Lindsey Byrd on 08-30-2023 Basophils/100 WBC (Bld) 0.9 % 0-1 [facility] Bilirubin [Mass/Vol] 0.60 mg/dL 0.20-1.00 [facility] Comment on above: For patients on eltr ombopag therapy, use of Dimension [place] TBIL is not recommended. Chloride [Moles/Vol] 107 mmol/L 98-107 [facility] Eosinophils/100 WBC (Bld) 2.8 % 0-5 [facility] Glucose [Mass/Vol] 120 mg/dL 74-106 [facility] Comment on above: Fasting Glucose resu lt from 100 to 125 mg/dL suggests IMPAIRED HOMEOSTASIS per A.D.A. criteria. Neutrophils (Bld) [#/Vol] 3.4 10*3/uL 2.0-7.7 [facility] Neutrophils/100 WBC (Bld) 59.7 % 47-70 [facility] Potassium [Moles/Vol] 4.2 mmol/L 3.5-5.1 [facility] Protein [Mass/Vol] 7.5 g/dL 6.4-8.2 [facility] Sodium [Moles/Vol] 141 mmol/L 136-145 [facility] WBC (Bld) [#/Vol] 5.8 10*3/uL 4.4-11.0 [facility] Blood erythrocytes count (nu mber/volume)Ordered By: Lindsey Byrd on 08-30-2023 RBC (Bld) [#/Vol] 4.97 10*6/uL 4.2-5.4 [facility] Blood hemoglobin measurement (mass/volume)Ordered By: Lindsey Byrd on 08-30-2023 Hemoglobin (Bld) [Mass/Vol] 14.4 g/dL 12.0-15.0 [facility] Blood lymphocytes/100 leukoc ytesOrdered By: [facility] on 08-30-2023 Lymphocytes/100 WBC (Bld) 28.0 % 19-41 [facility] Blood monocytes/100 leukocyt esOrdered By: [facility] on 08-30-2023 Monocytes/100 WBC (Bld) 8.3 % 0-10 [facility] Blood platelet mean volumeOr dered By: [facility] on 08-30-2023 Platelet mean volume (Bld) [Entitic vol] 9.4 fL 6.2-12.0 [facility] Determination of erythrocyte mean corpuscular volume (MCV)Ordered By: Lindsey Byrd on 08-30-2023 MCV (RBC) [Entitic vol] 88.7 fL 81-99 [facility] Hematocrit Auto (Bld) [Volum e fraction]Ordered By: [facility] on 08-30-2023 Hematocrit (Bld) [Volume fraction] 44.1 % 37-47 [facility] Laboratory - Chemistry and C hemistry - challengeOrdered By: Lindsey Byrd on 08-30-2023 ALP [Catalytic activity/Vol] 89 U/L 45-117 [facility] ALT [Catalytic activity/Vol] 90 U/L 13-56 [facility] CO2 [Moles/Vol] 28.0 mmol/L 21.0-32.0 [facility] Globulin (S) [Mass/Vol] 3.6 g/dL 2.2-4.2 [facility] Magnesium [Mass/Vol] 2.2 mg/dL 1.6-2.6 [facility] Urea nitrogen/Creatinine [Mass ratio] 37.8 mg/mg 10-20 [facility] Laboratory - Hematology and Cell countsOrdered By: Lindsey Byrd on 08-30-2023 Erythrocyte distribution width (RBC) [Entitic vol] 39.4 fL 35.1-43.9 [facility] Erythrocyte distribution width (RBC) [Ratio] 12.3 % 11.6-14.6 [facility] Immature granulocytes/100 WBC (Bld) 0.300 % 0.0-0.9 [facility] Comment on above: IG% - Immature Granu locytes (promyelocytes, myelocytes and metamyelocytes) > 1% indicates that a LEFT SHIFT is Present. MCH (RBC) [Entitic mass] 29.0 pg 27.0-32.0 [facility] Nucleated RBC/100 WBC (Bld) [Ratio] 0 % 0-5 [facility] MCHC Auto (RBC) [Mass/Vol]Or dered By: Lindsey Byrd on 08-30-2023 MCHC (RBC) [Mass/Vol] 32.7 g/dL 32-36 [facility] No Panel InformationOrdered By: Lindsey Byrd on 08-30-2023 Estimated GFR (MDRD) Amer 118 mL/min >60 [facility] Comment on above: GFR Calc Estimated GFR (MDRD) Non-Af Amer 98 mL/min >60 [facility] Comment on above: Non- GFR Calc Vitamin D 25-Hydroxy 31.0 ng/mL [facility] Comment on above: Vitamin D 25(OH) Sta tus Range Deficiency <20 ng/mL (50nmol/L) Insufficiency 20 - 30 ng/mL (50 - 75 nmol/L) Sufficiency 30 - 100 ng/mL (75 - 250 nmol/L) Toxicity >100 ng/mL (>250 nmol/L) Platelets bldOrdered By: Vandana Byrd on 08-30-2023 Platelets (Bld) [#/Vol] 310 10*3/uL 150-450 [facility] Serum or plasma albumin katarzyna urement (mass/volume)Ordered By: Lindsey Byrd on 08-30-2023 Albumin [Mass/Vol] 3.9 g/dL 3.2-5.0 [facility] Serum or plasma albumin/glob ulin mass ratioOrdered By: Lindsey Byrd on 08-30-2023 Albumin/Globulin [Mass ratio] 1.1 {ratio} 0.9-2.4 [facility] Serum or plasma calcium katarzyna urement (mass/volume)Ordered By: Lindsey Byrd on 08-30-2023 Calcium [Mass/Vol] 9.3 mg/dL 8.5-10.1 [facility] Serum or plasma creatinine m easurement (mass/volume)Ordered By: Lindsey Byrd on 08-30-2023 Creatinine [Mass/Vol] 0.66 mg/dL 0.55-1.02 [facility] Comment on above: The validity of the calculated GFR & GFRAA in patients over 70 years has not been determined. Clinical correlation is essential. Serum or plasma urea nitroge n measurement (mass/volume)Ordered By: Lindsey Byrd on 08-30-2023 Urea nitrogen [Mass/Vol] 25 mg/dL 7-18 [facility] Thin prep Papanicolaou smear with manual screeningOrdered By: Lindsey Byrd on 08-30-2023 Thin prep Papanicolaou smear with manual screening 31 U/L 15-37 [facility] Thin prep Papanicolaou smear with manual screening 6 5-15 [facility] Absolute lymphocyte countOrd ered By: Dr. Meadows on 11-14-2022 Lymphocytes Auto (Unsp spec) [#/Vol] 1.69 10*3/uL 0.83-4.51 [facility] Basophil percentageOrdered B y: Dr. Meadows on 11-14-2022 Basophil percentage 3.0 mg/dL 2.5-4.9 [facility] Basophils/100 WBC (Bld) 0.8 % 0-1 [facility] Bilirubin [Mass/Vol] 0.80 mg/dL 0.20-1.00 [facility] Comment on above: For patients on eltr ombopag therapy, use of Dimension [place] TBIL is not recommended. Chloride [Moles/Vol] 107 mmol/L 98-107 [facility] Cholesterol [Mass/Vol] 240 mg/dL <200 [facility] Comment on above: <200 mg/dL Desirable 200-240 mg/dL Borderline >240 mg/dL High Risk Eosinophils/100 WBC (Bld) 2.9 % 0-5 [facility] Glucose [Mass/Vol] 113 mg/dL 74-106 [facility] Comment on above: Fasting Glucose resu lt from 100 to 125 mg/dL suggests IMPAIRED HOMEOSTASIS per A.D.A. criteria. Neutrophils (Bld) [#/Vol] 2.6 10*3/uL 2.0-7.7 [facility] Neutrophils/100 WBC (Bld) 54.1 % 47-70 [facility] Potassium [Moles/Vol] 3.6 mmol/L 3.5-5.1 [facility] Protein [Mass/Vol] 7.8 g/dL 6.4-8.2 [facility] Sodium [Moles/Vol] 141 mmol/L 136-145 [facility] Triglyceride [Mass/Vol] 71 mg/dL <199 [facility] Comment on above: The drugs N-Acetylcy steine and Metamizole may falsely depress this assay.Serum Triglycerides Reference Interval Normal <150 mg/dL Borderline high 150 - 199 mg/dL High 200 - 499 mg/dL Very High > or = 500 mg/dL WBC (Bld) [#/Vol] 4.8 10*3/uL 4.4-11.0 [facility] Blood erythrocytes count (nu mber/volume)Ordered By: Dr. Meadows on 11-14-2022 RBC (Bld) [#/Vol] 5.14 10*6/uL 4.2-5.4 [facility] Blood hemoglobin measurement (mass/volume)Ordered By: Dr. Meadows on 11-14-2022 Hemoglobin (Bld) [Mass/Vol] 15.1 g/dL 12.0-15.0 [facility] Blood lymphocytes/100 leukoc ytesOrdered By: Dr. Meadows on 11-14-2022 Lymphocytes/100 WBC (Bld) 35.1 % 19-41 [facility] Blood monocytes/100 leukocyt esOrdered By: Dr. Meadows on 11-14-2022 Monocytes/100 WBC (Bld) 6.9 % 0-10 [facility] Blood platelet mean volumeOr dered By: Dr. Meadows on 11-14-2022 Platelet mean volume (Bld) [Entitic vol] 9.7 fL 6.2-12.0 [facility] Determination of erythrocyte mean corpuscular volume (MCV)Ordered By: Dr. Meadows on 11-14-2022 MCV (RBC) [Entitic vol] 88.7 fL 81-99 [facility] Erythrocyte sedimentation ra teOrdered By: Dr. Meadows on 11-14-2022 ESR (Bld) [Velocity] 7 mm/h 0-30 [facility] Hematocrit Auto (Bld) [Volum e fraction]Ordered By: Dr. Meadows on 11-14-2022 Hematocrit (Bld) [Volume fraction] 45.6 % 37-47 [facility] Laboratory - Chemistry and C hemistry - challengeOrdered By: Dr. Meadows on 11-14-2022 ALP [Catalytic activity/Vol] 75 U/L 45-117 [facility] ALT [Catalytic activity/Vol] 58 U/L 13-56 [facility] Amylase [Catalytic activity/Vol] 73 U/L 5-55 [facility] CO2 [Moles/Vol] 25.0 mmol/L 21.0-32.0 [facility] Globulin (S) [Mass/Vol] 3.7 g/dL 2.2-4.2 [facility] Magnesium [Mass/Vol] 1.9 mg/dL 1.6-2.6 [facility] Urea nitrogen/Creatinine [Mass ratio] 25.5 mg/mg 10-20 [facility] Laboratory - Hematology and Cell countsOrdered By: Dr. Meadows on 11-14-2022 Erythrocyte distribution width (RBC) [Entitic vol] 41.8 fL 35.1-43.9 [facility] Erythrocyte distribution width (RBC) [Ratio] 12.8 % 11.6-14.6 [facility] Immature granulocytes/100 WBC (Bld) 0.200 % 0.0-0.9 [facility] Comment on above: IG% - Immature Granu locytes (promyelocytes, myelocytes and metamyelocytes) > 1% indicates that a LEFT SHIFT is Present. MCH (RBC) [Entitic mass] 29.4 pg 27.0-32.0 [facility] Nucleated RBC/100 WBC (Bld) [Ratio] 0 % 0-5 [facility] MCHC Auto (RBC) [Mass/Vol]Or dered By: Dr. Meadows on 11-14-2022 MCHC (RBC) [Mass/Vol] 33.1 g/dL 32-36 [facility] No Panel InformationOrdered By: Dr. Meadows on 11-14-2022 Homocysteine 8.0 umol/L 3.2-10.7 [facility] C-Peptide 2.7 ng/mL 1.1-4.4 [facility] Comment on above: C-Peptide reference interval is for fasting patients.Performed at: [employer] [address] [id number] Director: Jacob Bridges PhD, Phone: [phone] C-Reactive Protein High Sensitivity 1.16 mg/L <3.00 [facility] Comment on above: Low Relative Risk of CVD <1.0 mg/L Average Relative Risk of CVD 1.0 - 3.0 mg/L High Relative Risk of CVD >3.0 mg/L Dehydroepiandrosterone Sulfate 77.3 ug/dL 29.4-220.5 [facility] Estimated GFR (MDRD) Amer 110 mL/min >60 [facility] Comment on above: GFR Calc Estimated GFR (MDRD) Non-Af Amer 91 mL/min >60 [facility] Comment on above: Non- GFR Calc Insulin Level 10.2 mU/L 2.6-37.6 [facility] Thyroid Stimulating Hormone (TSH) 2.50 uIU/mL 0.358-3.74 [facility] Vitamin D 25-Hydroxy 35.6 ng/mL [facility] Comment on above: Vitamin D 25(OH) Sta tus Range Deficiency <20 ng/mL (50nmol/L) Insufficiency 20 - 30 ng/mL (50 - 75 nmol/L) Sufficiency 30 - 100 ng/mL (75 - 250 nmol/L) Toxicity >100 ng/mL (>250 nmol/L) Platelets bldOrdered By: Dr. Meadows on 11-14-2022 Platelets (Bld) [#/Vol] 276 10*3/uL 150-450 [facility] Serum or plasma albumin katarzyna urement (mass/volume)Ordered By: Dr. Meadows on 11-14-2022 Albumin [Mass/Vol] 4.1 g/dL 3.2-5.0 [facility] Serum or plasma albumin/glob ulin mass ratioOrdered By: Dr. Meadows on 11-14-2022 Albumin/Globulin [Mass ratio] 1.1 {ratio} 0.9-2.4 [facility] Serum or plasma calcium katarzyna urement (mass/volume)Ordered By: Dr. Meadows on 11-14-2022 Calcium [Mass/Vol] 9.7 mg/dL 8.5-10.1 [facility] Serum or plasma cholesterol in HDL measurement (mass/volume)Ordered By: Dr. Meadows on 11-14-2022 Cholesterol in HDL [Mass/Vol] 67 mg/dL >40 [facility] Comment on above: The drugs N-Acetylcy steine and Metamizole may falsely depress this assay. Reference Range HDL <40 mg/dL Low HDL Cholesterol HDL >or= 60 mg/dL High HDL Cholesterol Serum or plasma cholesterol in VLDL measurement (mass/volume)Ordered By: Dr. Meadows on 11-14-2022 Cholesterol in VLDL [Mass/Vol] 14 mg/dL 5-40 [facility] Serum or plasma creatinine m easurement (mass/volume)Ordered By: Dr. Meadows on 11-14-2022 Creatinine [Mass/Vol] 0.71 mg/dL 0.55-1.02 [facility] Comment on above: The validity of the calculated GFR & GFRAA in patients over 70 years has not been determined. Clinical correlation is essential. Serum or plasma ferritin walker surement (mass/volume)Ordered By: Dr. Meadows on 11-14-2022 Ferritin [Mass/Vol] 152 ng/mL 8-252 [facility] Serum or plasma low density lipoprotein (LDL) cholesterol measurement (mass/volume)Ordered By: Dr. Meadows on 11-14-2022 Cholesterol in LDL [Mass/Vol] 159 mg/dL 0-130 [facility] Serum or plasma urea nitroge n measurement (mass/volume)Ordered By: Dr. Meadows on 11-14-2022 Urea nitrogen [Mass/Vol] 18 mg/dL 7-18 [facility] Thin prep Papanicolaou smear with manual screeningOrdered By: Dr. Meadows on 11-14-2022 Thin prep Papanicolaou smear with manual screening 25 U/L 15-37 [facility] Thin prep Papanicolaou smear with manual screening 9 5-15 [facility] Whole blood hemoglobin A1c/t otal hemoglobin ratio (mass fraction)Ordered By: Dr. Meadows on 11-14-2022 HbA1c (Bld) [Mass fraction] 5.5 % 3.8-5.6 [facility] Comment on above: Normal < 5.7 % Predi abetic 5.7 - 6.4 % Diabetic >or= 6.5 % Please note range changes. Glucose Glucometer (BldC) [M ass/Vol]on 12-24-2021 Glucose [Mass/Vol] 150 mg/dL 74-106 [facility] Work Phone: Comment on above: MANAGEMENT OF PATIEN T CARE PER NURSING PROTOCOL Atypical perinuclear antineu trophil cytoplasmic antibodies measurementon 10-22-2021 Neutrophil cytoplasmic Ab.perinuclear.atypical IF (S) [Titer] <1:20 titer Neg:<1:20 [facility] Work Phone: Comment on above: The atypical pANCA p attern has been observed in asignificant percentage of patients with ulcerative colitis,primary sclerosing cholangitis and autoimmune hepatitis. Basophil percentageon 2021 Basophil percentage < 0.[address] [facility] Work Phone: Bilirubin [Mass/Vol] 0.50 mg/dL 0.20-1.00 [facility] Work Phone: Comment on above: For patients on eltr ombopag therapy, use of Dimension [place] TBIL is not recommended. Chloride [Moles/Vol] 106 mmol/L 98-107 [facility] Work Phone: Glucose [Mass/Vol] 117 mg/dL 74-106 [facility] Work Phone: Comment on above: Fasting Glucose resu lt from 100 to 125 mg/dL suggests IMPAIRED HOMEOSTASIS per A.D.A. criteria. Potassium [Moles/Vol] 3.9 mmol/L 3.5-5.1 [facility] Work Phone: Protein [Mass/Vol] 8.0 g/dL 6.4-8.2 [facility] Work Phone: Sodium [Moles/Vol] 139 mmol/L 136-145 [facility] Work Phone: Erythrocyte sedimentation ra maisha 10-22-2021 ESR (Bld) [Velocity] 16 mm/h 0-30 [facility] Work Phone: HIV 1 and HIV-2 antibody ass ay with HIV-1 p24 antigen detectionon 10-22-2021 HIV 1+2 Ab+HIV1 p24 Ag IA Ql Non-Reactive Nonreactive [facility] Work Phone: Laboratory - Chemistry and C hemistry - challengeon 10-22-2021 ALP [Catalytic activity/Vol] 154 U/L 45-117 [facility] Work Phone: ALT [Catalytic activity/Vol] 166 U/L 13-56 [facility] Work Phone: CO2 [Moles/Vol] 27.0 mmol/L 21.0-32.0 [facility] Work Phone: Globulin (S) [Mass/Vol] 4.0 g/dL 2.2-4.2 [facility] Work Phone: Urea nitrogen/Creatinine [Mass ratio] 27.2 mg/mg 10-20 [facility] Work Phone: No Panel Informationon 10-22 Centromere B Antibody <0.2 AI [facility] Work Phone: BOW MAKER Antibody <0.2 AI [facility] Work Phone: Ceruloplasmin 31.6 mg/dL [facility] Work Phone: Estimated GFR (MDRD) Amer 105 mL/min >60 [facility] Work Phone: Comment on above: GFR Calc Estimated GFR (MDRD) Non-Af Amer 87 mL/min >60 [facility] Work Phone: Comment on above: Non- GFR Calc Haptoglobin 160 mg/dL [facility] Work Phone: Comment on above: Performed at: [facility] [id number] [place], [place] [id number] Director: Jacob Bridges PhD, Phone: [phone] at: [facility] [id number] Director: Jones Liz MD, Phone: [phone] Hepatitis A IgM Antibody Negative Negative [facility] Work Phone: Hepatitis B Core IgM Antibody Negative Negative [facility] Work Phone: Hepatitis C Antibody (EIA) <0.1 s/co ratio [facility] Work Phone: Comment on above: Negative: < 0.8 Inde terminate: 0.8 - 0.9 Positive: > 0.9 The CDC recommends that a positive HCV antibody result be followed up with a HCV Nucleic Acid Amplification test (590747).Effective November 08, 2021 Hepatitis Panel (4) will be made non-orderable. [employer] offers order code [id number] Acute Hepatitis. Serum DNA double strand anti body assay (units/volume)on 10-22-2021 DNA double strand Ab Qn (S) [IU]/mL [facility] Work Phone: Comment on above: Negative <5 Equivoca l 5 - 9 Positive >9 Serum Georgette-1 antibody assay (u nits/volume)on 10-22-2021 Georgette-1 extractable nuclear Ab Qn (S) <0.2 [facility] Work Phone: Serum Scl-70 extractable nuc lear antibody assay (units/volume)on 10-22-2021 SCL-70 extractable nuclear Ab Qn (S) <0.2 AI [facility] Work Phone: Serum Olivier extractable nucl ear antibody detectionon 10-22-2021 Olivier extractable nuclear Ab Ql (S) <0.2 [facility] Work Phone: Serum classic neutrophil cyt oplasmic antibody assay (units/volume)on 10-22-2021 Neutrophil cytoplasmic Ab.classic Qn (S) <1:20 titer Neg:<1:20 [facility] Work Phone: Serum mitochondria antibody detectionon 10-22-2021 Mitochondria Ab Ql (S) <20.0 Units [facility] Work Phone: Comment on above: Negative 0.0 - 20.0 Equivocal 20.1 - 24.9 Positive >24.9Mitochondrial (M2) Antibodies are found in 90-96% ofpatients with primary biliary cirrhosis.Performed at: [facility] [id number] Director: Jacob Bridges PhD, Phone: [phone] Serum or plasma C reactive p rotein measurement (mass/volume)on 10-22-2021 CRP [Mass/Vol] mg/L 0.0-3.0 [facility] Work Phone: Comment on above: C-Reactive Protein ( CRP) provides useful information for thediagnosis, therapy and monitoring of inflammatory processesand associated diseases. For the evaluation of Relative Riskfor Cardiovascular Disease, a High Sensitivity CRP (HSCRP)should be ordered. Serum or plasma actin IgG an tibody assay (units/volume)on 10-22-2021 Actin IgG Qn 6 Units [facility] Work Phone: Comment on above: Negative 0 - 19 Weak positive 20 - 30 Moderate to strong positive >30 Actin Antibodies are found in 52-85% of patients with autoimmune hepatitis or chronic active hepatitis and in 22% of patients with primary biliary cirrhosis. Serum or plasma albumin katarzyna urement (mass/volume)on 10-22-2021 Albumin [Mass/Vol] 4.0 g/dL 3.2-5.0 [facility] Work Phone: Serum or plasma albumin/glob ulin mass ratioon 10-22-2021 Albumin/Globulin [Mass ratio] 1.0 {ratio} 0.9-2.4 [facility] Work Phone: Serum or plasma bsvss-0-urwn protein tumor marker measurement (units/volume)on 10-22-2021 AFP.tumor marker Qn 2.2 ng/mL [facility] Work Phone: Comment on above: [facility] El ectrochemiluminescenceImmunoassay (ECLIA)Values obtained with different assay methods orkits cannot be used interchangeably. Resultscannot be interpreted as absolute evidence of thepresence or absence of malignant disease.This test is not interpretable in females.Effective November 01, 2021 AFP, Serum, Tumor Marker reference interval will be changing to: Age Male Female 0 - 7 days 0.0 - 90624.8 0.0 - 45779.8 8 - 30 days 0.0 - 08293.4 0.0 - 83332.4 1 month 0.0 - 1747.8 0.0 - [...] enzyme [Catalytic activity/Vol] 61 U/L [facility] Work Phone: Serum or plasma calcium katarzyna urement (mass/volume)on 10-22-2021 Calcium [Mass/Vol] 9.1 mg/dL 8.5-10.1 [facility] Work Phone: Serum or plasma creatinine m easurement (mass/volume)on 10-22-2021 Creatinine [Mass/Vol] 0.74 mg/dL 0.55-1.02 [facility] Work Phone: Comment on above: The validity of the calculated GFR & GFRAA in patients over 70 years has not been determined. Clinical correlation is essential. Serum or plasma ferritin walker surement (mass/volume)on 10-22-2021 Ferritin [Mass/Vol] 171 ng/mL 8-252 [facility] Work Phone: Serum or plasma hepatitis B virus surface antigen detection by immunoassayon 10-22-2021 HBV surface Ag IA Ql Negative Negative [facility] Work Phone: Serum or plasma urea nitroge n measurement (mass/volume)on 10-22-2021 Urea nitrogen [Mass/Vol] 20 mg/dL 7-18 [facility] Work Phone: Serum perinuclear neutrophil cytoplasmic antibody titer by immunofluorescenceon 10-22-2021 Neutrophil cytoplasmic Ab.perinuclear IF (S) [Titer] <1:20 titer Neg:<1:20 [facility] Work Phone: Comment on above: The presence of posi tive fluorescence exhibiting P-ANCA orC-ANCA patterns alone is not specific for the diagnosis ofWegener's Granulomatosis (WG) or microscopic polyangiitis.Decisions about treatment should not be based solely onANCA IFA results. The [employer] Consensusrecommends follow up testing of positive sera with both IL-3 and MPO-ANCA enzyme immunoassays. As many as 5% serumsamples are positive only by EIA. Ref. AM J Clin [id number];111:507-513. Thin prep Papanicolaou smear with manual screeningon 10-22-2021 Thin prep Papanicolaou smear with manual screening 50 U/L 15-37 [facility] Work Phone: Thin prep Papanicolaou smear with manual screening 6 5-15 [facility] Work Phone: Thin prep Papanicolaou smear with manual screening 219 U/L 84-246 [facility] Work Phone: Thin prep Papanicolaou smear with manual screening 139 ug/dL [facility] Work Phone: Comment on above: Detection Limit = 5 Whole blood hemoglobin A1c/t otal hemoglobin ratio (mass fraction)on 10-22-2021 HbA1c (Bld) [Mass fraction] 5.9 % 3.8-5.6 [facility] Work Phone: Comment on above: Normal < 5.7 % Predi abetic 5.7 - 6.4 % Diabetic >or= 6.5 % Please note range changes. Vital Signs Date Time Vital Sign Value Performing Clinician Faci lity 11-06-2024 08:35-0400 Body temperature 98.7 [degF] Dr. Siddhartha Meadows MD Work Phone: [facility] 11-06-2024 08:35-0400 Diastolic blood pressure 68 mm[Hg] Dr. Siddhartha Meadows MD Work Phone: [facility] 11-06-2024 08:35-0400 Heart rate 80 /min Dr. Siddhartha Meadows MD Work Phone: [facility] 11-06-2024 08:35-0400 Respiratory rate 17 /min Dr. Siddhartha Meadows MD Work Phone: [facility] 11-06-2024 08:35-0400 SaO2% (BldA) [Mass fraction] 96 % Dr. Siddhartha Meadows MD Work Phone: [facility] 11-06-2024 08:35-0400 Systolic blood pressure 130 mm[Hg] Dr. Siddhartha Meadows MD Work Phone: [facility] 03-22-2023 09:20-0400 Body temperature 99.2 [degF] Dr. Dank Meadows Work Phone: [facility] 03-22-2023 09:20-0400 Diastolic blood pressure 63 mm[Hg] Dr. Dank Meadows Work Phone: [facility] 03-22-2023 09:20-0400 Heart rate 78 /min Dr. Dank Meadows Work Phone: [facility] 03-22-2023 09:20-0400 Respiratory rate 16 /min Dr. Dank Meadows Work Phone: [facility] 03-22-2023 09:20-0400 SaO2% (BldA) [Mass fraction] 95 % Dr. Dank Meadows Work Phone: [facility] 03-22-2023 09:20-0400 Systolic blood pressure 124 mm[Hg] Dr. Dank Meadows Work Phone: [facility] 03-22-2023 08:16-0400 Body height 162.[address] Dank Meadows Work Phone: [facility] 03-22-2023 08:16-0400 Body mass index (BMI) [Ratio] 34.4 kg/m2 Dr. Dank Meadows Work Phone: [facility] 03-22-2023 08:16-0400 Body weight 91.[address] Dank Meadows Work Phone: [facility] 12-24-2021 07:20-0400 Body temperature 99 [degF] Dr. Dank Meadows Work Phone: [facility] Work Phone: 12-24-2021 07:20-0400 Diastolic blood pressure 70 mm[Hg] Dr. Dank Meadows Work Phone: [facility] Work Phone: 12-24-2021 07:20-0400 Heart rate 65 /min Dr. Dank Meadows Work Phone: [facility] Work Phone: 12-24-2021 07:20-0400 Respiratory rate 16 /min Dr. Dank Meadows Work Phone: [facility] Work Phone: 12-24-2021 07:20-0400 SaO2% (BldA) [Mass fraction] 97 % Dr. Dank Meadows Work Phone: [facility] Work Phone: 12-24-2021 07:20-0400 Systolic blood pressure 113 mm[Hg] Dr. Dank Meadows Work Phone: [facility] Work Phone: 12-24-2021 06:01-0400 Body height 162.[address] Dank Meadows Work Phone: [facility] Work Phone: 12-24-2021 06:01-0400 Body mass index (BMI) [Ratio] 38.3 kg/m2 Dr. Dank Meadows Work Phone: [facility] Work Phone: 12-24-2021 06:01-0400 Body weight 101.[address] Dank Meadows Work Phone: [facility] Work Phone: Encounters Encounter Date Encounter Type Care Provider Facility Start: 07-07-2025 ambulatory Siddhartha Meadows [facility] lity:[facility] Start: 02-17-2025 ambulatory Siddhartha Bowen lity:[facility] Start: 02-17-2025 Non-patient / Non-visit Dr. John Vazquez MD -[facility] Start: 02-14-2025 End: 02-14-[address] Siddhartha Meadows MD Work Phone: [facility] Work Phone: Start: 02-14-2025 End: 02-14-[address] Siddhartha Meadows MD -[facility] Work Phone: Start: 02-14-2025 End: 02-14-2025 ambulatory Siddhartha Meadows Facility:[facility] Start: 11-06-2024 End: 11-06-2024 Patient encounter procedure John LOUIE [facility] Work Phone: Start: 11-06-2024 End: 11-06-2024 ambulatory John LOUIE Facility:[facility] Start: 07-30-2024 End: 07-30-2024 ambulatory Dulce Horn NP Facility:[facility] Start: 07-16-2024 End: 07-16-2024 ambulatory Siddhartha Meadows Facility:[facility] Start: 08-30-2023 End: 08-30-2023 ambulatory [facility] Work Phone: Start: 08-30-2023 End: 08-30-2023 Patient encounter procedure [facility] Start: 07-14-2023 End: 07-14-[address] Dank Meadows Work Phone: [facility] Work Phone: Start: 07-14-2023 End: 07-14-[address] Dank Meadows Work Phone: [facility]-Outpatient Breast Imaging Work Phone: Start: 03-22-2023 Non-patient / Non-visit Dr. Dank Meadows Work Phone: [facility] Start: 03-22-2023 End: 03-22-2023 Admission to same day surgery center Dr. Dank Meadows Work Phone: [facility]-Endoscopy Work Phone: Start: 11-14-2022 End: 11-14-2022 ambulatory [facility] Work Phone: Start: 11-14-2022 End: 11-14-2022 Patient encounter procedure [facility] Start: 07-25-2022 End: 07-25-2022 ambulatory [facility] Work Phone: Start: 07-25-2022 End: 07-25-2022 Patient encounter procedure [facility] Start: 06-02-2022 End: 06-02-[address] Dank Meadows Work Phone: [facility] Work Phone: Start: 06-02-2022 End: 06-02-[address] Dank Meadows Work Phone: [facility]-Outpatient Breast Imaging Start: 03-29-2022 End: 03-29-[address] Dank Meadows Work Phone: [facility] Start: 12-24-2021 Non-patient / Non-visit Dr. Dank Meadows Work Phone: [facility] Start: 12-24-2021 End: 12-24-2021 Admission to same day surgery center Dr. Dank Meadows Work Phone: [facility]-Endoscopy Start: 11-05-2021 End: 11-05-[address] Dank Meadows Work Phone: [facility]-Ultrasound, [facility] Start: 10-22-2021 End: 10-22-[address] Dank Meadows Work Phone: [facility]-Laboratory Start: 10-22-2021 End: 10-22-[address] Dank Meadows Work Phone: [facility] Start: 09-07-2021 Non-patient / Non-visit Dr. Dank Meadows Work Phone: [facility] Start: 09-06-2021 End: 09-06-[address] Dank Meadows Work Phone: [facility]-Pulmonary Services/Neurology Procedures Date Procedure Procedure Detail Performing [...] Detail Author Start: 03-22-[address] [facility] Patient referral [facility] Work Phone: Ultrasound elastography [facility] Work Phone: US Abdomen limited [facility] Work Phone: Payers Date Payer Category Payer Unknown [id number] 2024 Self-pay [id number] 2024 Private Health Insurance [id number] 2011 Private Health Insurance [id number] Unknown [id number] 2.16.8 [id number] Unknown [id number] 2.16.8 [id number] Unknown [id number] 2.16.8 [id number] Unknown [id number] 2.16.8 [id number] Unknown [id number] 2.16.8 [id number] Unknown [id number] 2.16.8 [id number] Unknown [id number] 2.16.8 [id number] Social History Date Type Detail Facility [facility] Work Phone: Start: 12-22-2021 End: 03-22-2023 Tobacco smoking status NHIS Unknown if ever smoked [facility] Start: 1965 Sex Assigned At Female [facility] Start: 03-22-2023 Tobacco smoking stat us NHIS Never smoked tobacco (finding) [facility] Medical Equipment Procedure Code Equipment Code Equipment [...] Assessment Result Facility 03-22-2023 Cognitive function Voice/Name [facility] Work Phone: 12-24-2021 Cognitive function Voice/Name [facility] Work Phone: Radiology Diagnostic study note 02-17-2025 Note Date & Type Note Facility 02-17-2025 Radiology Diagnostic study note [facility] Imaging Services [address] [place] [address] 02/17/25 1024 MR#: [id number] Acct: [id number] Name: VIKAS LEDBETTER Rep #:[id number] : [...] John Vazquez MD ~ Signed [facility] Work Phone: Radiology Diagnostic study note 02-15-2025 Note Date & Type Note Facility 02-15-2025 Radiology Diagnostic study note [facility] Imaging Services [address] [place], [place] [address] Limited Chest CT Cardiac Only MR#: [id number] Acct: [id number] Name: VIKAS LEDBETTER Rep #: [id number] : 1965 F 59 From: Tito Barajas MD PCP: Dr. Siddhartha Meadows MD Status: REG CLI Study:Limited Chest CT Cardiac Only Date of E xam: 02/14/25 Exam# [id number] Ordering Dr: Mignon Meadows MD PROCEDURE: LIMITED [...] hiatal hernia. Otherwise, unremarkable exam. Reading Location: [place] [address] CC: Dr. Siddhartha Meadows MD ~ Administrative Services Director: Signed [facility] Evaluation note Note Date & Type Note Facility Evaluation note Diagnosis Onset Date Gastroesophageal reflux disease acute Hepatomegaly acute [facility] Work Phone: Evaluation note Note Date & Type Note Facility Evaluation note Diagnosis Onset Date Cough chronic Diabetes chronic Hepatomegaly chronic SOLANO (nonalcoholic steatohepatitis) chronic [facility] Work Phone: Evaluation note Note Date & Type Note Facility Evaluation note No assessment information availa ble [facility] Work Phone: Evaluation note Note Date & Type Note Facility Evaluation note Diagnosis Onset Date Hx of colonic polyps acute [facility] Work Phone: Reason for referral (narrative) Note Date & Type Note Facility Reason for referral (narrative) No reason for referral information available [facility] Work Phone: Chief Complaint and Reason for [...] No December 22, 2021 1:30pm Power of Shipping And Receiving No December 22 1:30pm Advance Directive Response Recorded Date/ Time Living Will No December 22, 2021 12:30pm Power of Shipping And Receiving No December 22 12:30pm Advance Directive Response Recorded Date/ Time Name of Medical Power of Shipping And Receiving POA March 17, 2023 10:56am Living Will Yes March 17, 2023 10:56am Power of Shipping And Receiving Yes March 17 10:56am Advance Directive Response Recorded Date/ Time Living Will Yes March 17, 2023 10:56am Power of Shipping And Receiving Yes March 17 10:56am Summary Purpose Family [...] section and content) DATE CREATED AUTHOR 07/10/2025 [facility] FOR RECORDS PERTAINING TO PATIENTS WHO ARE [...] BE BASED ON THE PRIMARY CLINICAL RECORDS. [employer] [facility]. provides no warranty or guarantee of the accuracy or completeness of information in this document.
[2025-08-20] MEDS: Lactated Ringers 1,000 ML 15 ML IV (12:38)
--- NOTE | 2025-08-20 12:42 | PRE.ANES_ITS ---
ASA Classification* ASA Classification ASA Classification: 2 Assessment & Plan Anesthesia* Anesthesia Assessment Anesthesia Assessment: Discussed sedation and/or anesthesia options, risks, benefits, and alternatives with patient/parents/legal guardian/POA. Questions invited. The patient/parents/legal guardian/POA seems to understand and agrees to proceed with anesthesia plan. Reviewed the physical assessment, medical history, allergy history and patient home medications list prior to surgery/procedure/anesthetic and documented any changes. Performed airway and anesthesia risk assessments. Anesthesia Type Anesthesia Type: MAC Anesthesia Focused Assessment* Temperature: 97.0 F Pulse Rate: 63 Blood Pressure: 142/71 Respiratory Rate: 20 Pulse Ox: 98 Airway Assessment Mouth opens: >3 cm Mallampati Score: II Labs Anesthesia Preop lab: CBC WBC, (4.4-11.0) 12.5 K/mm3 H 08/10/25, 12:46 RBC, (4.2-5.4) 4.84 M/mm3 08/10/25, 12:46 Hgb, (12.0-15.0) 14.2 g/dL 08/10/25, 12:46 Hct, (37-47) 43.0 % 08/10/25, 12:46 Plt Count, (150-450) 261 K/mm3 08/10/25, 12:46 CHEMISTRY Potassium, (3.3-5.1) 4.9 mmol/L 08/10/25, 12:46 Sodium, (133-145) 140 mmol/L 08/10/25, 12:46 Magnesium, (1.6-2.6) 2.2 mg/dL 08/30/23, 10:11 Phosphorus, (2.5-4.9) 3.0 mg/dL 11/14/22, 09:39 BUN, (4-19) 19 mg/dL 08/10/25, 12:46 Creatinine, (0.70-1.20) 0.63 mg/dL L 08/10/25, 12:46 Glucose, (70-99) 159 mg/dL H 08/10/25, 12:46 POC Glucose, (74-106) 150 mg/dL H 12/24/21, 05:50 TSH, (0.300-4.200) 1.710 uIU/mL 07/07/25, 11:16 COAG PT, (11.9-14.4) 12.6 SECONDS 12/23/13, 10:12 Pre-Assessment Diagnosis/Proposed Procedure Planned Operative Procedure(s): EGD Anesthesia History Anesthesia History - adaptive physical education specialist: Anesthesia History - adaptive physical education specialist Hx Hospitalization No 08/15/25 15:53 Any Problems With Anesthesia Yes: PONV 08/15/25 15:53 Cholinesterase deficiency No 08/15/25 15:53 You/Your Family Experience No 08/15/25 15:53 fever (hyperthermia) with Relationship Recent Exposure to Contagious No 08/20/25 12:28 Disease Does patient have nerve No 08/15/25 15:53 stimulator Patient instructed to have device shut off --Does patient have Pacemaker No 08/20/25 12:28 or ICD? When Was Last Pacemaker Check QUESTION #4 FULL TEXT: You/Your Family Experience fever (hyperthermia) with Anesthesia Last Oral Intake Last Oral intake: Last Oral Intake NPO since 07:30 08/20/25 12:28 Meds taken in AM with sips of No 08/20/25 12:28 water? Meds patient instructed to take am of surgery PONV PONV - adaptive physical education specialist: PONV - adaptive physical education specialist Female Yes 08/15/25 15:53 HX of Motion Sickness Yes 08/15/25 15:53 HX of N/V After Surgery Yes 08/15/25 15:53 Non-Smoker Yes 08/15/25 15:53 Duration of Surgery greater No 08/15/25 15:53 than 60 minutes Number of Risk Factors 4 08/15/25 15:53 PONV Score Severe Risk 08/15/25 15:53 Height & Weight Height & Weight: Anesthesia: Height & Weight Height 5 ft 4 in 08/20/25 12:28 Weight: 95 kg 08/20/25 12:28 Body Mass Index (BMI) 35.9 08/20/25 12:28 Respiratory Assessment Respiratory Assessment - adaptive physical education specialist: Respiratory Tract Infection Hx - adaptive physical education specialist Hx Respiratory Tract Infection Yes: PNEUMONIA, FINISHING 08/15/25 15:53 ATB 08/16/25 STOP Sleep Apnea STOP Sleep Apnea - adaptive physical education specialist: STOP Sleep Apnea - adaptive physical education specialist Hx Hypertension No 08/15/25 15:53 Hx Sleep Apnea No 08/15/25 15:53 CPAP No 03/22/23 09:05 BIPAP Do you snore loudly (louder Yes 08/15/25 15:53 than talking or can be heard Do you often feel tired/ No 08/15/25 15:53 fatigued/ sleepy during daytime? Has anyone observed you stop Yes 08/15/25 15:53 breathing during sleep? STOP Results Positive 08/15/25 15:53 QUESTION #5 FULL TEXT : Do you snore loudly (louder than talking or can be heard through closed doors)? Tobacco Use History Tobacco Use History - adaptive physical education specialist: Tobacco Use History - adaptive physical education specialist Tobacco Use Smoking Status Never smoker 08/15/25 15:53 Hx Tobacco Use No 08/15/25 15:53 Years Smoking Packs Smoked per Day Smoking Cessation Date was within the last 15 years Hx Smoking Cessation Date Hx Smoking Cessation Counseling Hematologic Medial History Hematologic Hx - adaptive physical education specialist: Hematologic Medical Hx - adoption specialist Hx of Blood Transfusion No 08/15/25 15:53 Hx of Transfusion in last 3 No 08/15/25 15:53 Months Date of Last Transfusion (if within last 3 months) Ever experience any problems No 08/15/25 15:53 with transfusion(s)? Specify any problems Hx of Preganancy in last 3 No 08/15/25 15:53 Months Nurse Filling Out Transfusion MGRIFFITH 08/15/25 15:53 & Questions: Date: 08/15/25 08/15/25 15:53 Time: 15:56 08/15/25 15:53 Patient unable to answer at this time (ie. confused, unrespo /Reproduction History /Reproductive History - adaptive physical education specialist: /Reproductive Hx- adaptive physical education specialist Hx Now Gestational Age (in weeks): EDC: Hx Hx Para Hx Section SAB No 12/22/21 13:30 Does the father of the baby or his family experience fever w Father of the baby Malignant Hypertension history comment Active Medications Active Medications: Current Medications Generic Name Dose Route Start Last Admin Trade Name Freq PRN Reason Stop Dose Admin Lactated Ringer's 1,000 mls @ 15 mls/hr 08/20/25 12:30 08/20/25 12:38 IV 15 mls/hr .Q48H VAMSHI Administration PFSH Medical History Restless legs Post-menopausal Fatty liver Seasonal allergies History of IBS Chronic cough PONV (postoperative nausea and vomiting) Psoriatic arthritis IFG (impaired fasting glucose) Hx of colonic polyps Wears contact lenses Diabetes Back pain Difficulty swallowing History of hiatal hernia Gastric reflux Non-smoker History of chronic cough IBS (irritable bowel syndrome) Home Medications ?Medication ?Instructions ?Recorded ?Last Taken ?Type Lactobacillus acidophilus 10 100 mmu cells PO DAILY 08/19/25 History billion cell capsule (Probiotic) loratadine 10 mg tablet (Claritin) 10 mg PO DAILY PRN 03/17/23 Unknown History omeprazole magnesium 10 mg oral 20 mg PO DAILY 30 days #30 ea 08/10/25 08/19/25 Rx suspension,delayed release (Prilosec) duloxetine 30 mg capsule,delayed 30 mg PO DAILY 08/19/25 History release calcium 500 mg (as 1 tab PO DAILY 08/20/2507/29 History carbonate)-vitamin D3 200 unit-vit K2 90 mcg tablet Allergy/AdvReac Type Severity Reaction Status Date / Time cholestyramine Allergy Intermediate Rash Verified 08/20/25 12:25 bupropion (From Contrave) AdvReac Nausea Verified 08/20/25 12:25 naltrexone (From Contrave) AdvReac Nausea Verified 08/20/25 12:25 phentermine (From Qsymia) AdvReac Other Verified 08/20/25 12:25 topiramate (From Qsymia) AdvReac Other Verified 08/20/25 12:25 venlafaxine (From Effexor) AdvReac Nausea Verified 08/20/25 12:25 Family History Sister Colon polyps Surgical History History of back surgery History of esophagogastroduodenoscopy (EGD) Hx of colonoscopy History of foot surgery History of tonsillectomy History of tubal ligation Social History household members: spouse current occupational status: employed Smoking Status: Never smoker Review of Systems (Anesthesia) ROS Narrative System reviewed and no additional complaints, except as documented.
--- NOTE | 2025-08-20 13:09 | PCM.HP.STD ---
HPI - General General Date of Admission: 08/20/25 Date of Service: 08/20/25 Chief Complaint: dysphagia HPI Narrative SARAH LEDBETTER is a 60 F who presents Chief Complaint: Esophageal dysphagia Details: SARAH LEDBETTER is a 60 F who presents to the office today for establishment. [facility] ED 08/10/2025 due to esophageal dysphagia. Chest x-ray with right lower lobe opacity likely atelectasis although aspiration or pneumonia not excluded. Mild pulmonary vascular congestion. Started on levofloxacin and Prilosec and discharged. OV 08/13/25 patient has had continued esophageal pain since her ED visit. She has been able to eat soft foods and drink liquids. She had has nausea and vomiting since the ED however sometimes she gets this when she is on antibiotics. She notes that this has been an issue for many years but notices it worsening over the past year. She has episodes of dysphagia about once a month. When this happens she typically regurgitates her food. She has been taking Pepcid and Prilosec. Notices the Pepcid has helped with her daily loose stool which she has had for years. She has concerns about taking a PPI long-term. [facility] Medical History Restless legs Post-menopausal Fatty liver Seasonal allergies History of IBS Chronic cough PONV (postoperative nausea and vomiting) Psoriatic arthritis IFG (impaired fasting glucose) Hx of colonic polyps Wears contact lenses Diabetes Back pain Difficulty swallowing History of hiatal hernia Gastric reflux Non-smoker History of chronic cough IBS (irritable bowel syndrome) Home Medications ?Medication ?Instructions ?Recorded ?Last Taken ?Type Lactobacillus acidophilus 10 100 mmu cells PO DAILY 03/17/23 08/19/25 History billion cell capsule (Probiotic) loratadine 10 mg tablet (Claritin) 10 mg PO DAILY PRN 03/17/23 Unknown History omeprazole magnesium 10 mg oral 20 mg PO DAILY 30 days #30 ea 08/10/25 08/19/25 Rx suspension,delayed release (Prilosec) duloxetine 30 mg capsule,delayed 30 mg PO DAILY 08/15/25 08/19/25 History release calcium 500 mg (as 1 tab PO DAILY 08/20/25 08/19/25 History carbonate)-vitamin D3 200 unit-vit K2 90 mcg tablet Allergy/AdvReac Type Severity Reaction Status Date / Time cholestyramine Allergy Intermediate Rash Verified 08/20/25 12:25 bupropion (From Contrave) AdvReac Nausea Verified 08/20/25 12:25 naltrexone (From Contrave) AdvReac Nausea Verified 08/20/25 12:25 phentermine (From Qsymia) AdvReac Other Verified 08/20/25 12:25 topiramate (From Qsymia) AdvReac Other Verified 08/20/25 12:25 venlafaxine (From Effexor) AdvReac Nausea Verified 08/20/25 12:25 Family History Sister Colon polyps Surgical History History of back surgery History of esophagogastroduodenoscopy (EGD) Hx of colonoscopy History of foot surgery History of tonsillectomy History of tubal ligation Social History household members: spouse current occupational status: employed Smoking Status: Never smoker ROS Constitutional Constitutional: Denies fatigue, fever(s), poor appetite, weight gain or weight loss Gastrointestinal Gastrointestinal: Denies belching, bloating, change in bowel habits, change in stool character, chewing difficulty, coffee ground emesis, constipation, cramping, diarrhea, dyspepsia, dysphagia, early satiety, excessive flatus, fecal incontinence, heartburn, hematemesis, hematochezia, hemorrhoids, loose stools, melena, nausea, odynophagia, rectal bleeding, tenesmus, vomiting or weight changes Patient's Goals Of Care . What would you like to achieve or improve as a result of your hospital stay?: none Vital Signs Vital Signs Vital Signs: 08/20/25 12:28 08/20/25 12:28 08/20/25 12:28 Temperature 97.0 F L Temperature Source Temporal Pulse Rate 63 Respiratory Rate 20 H Respiratory Pattern Normal Blood Pressure 142/71 H Blood Pressure Mean 94 Blood Pressure Source Monitor Blood Pressure Position Semi-Fowlers Blood Pressure Location Right Arm Baseline BP 142/71 Pulse Ox 98 Oxygen Delivery Method Room Air 08/20/25 12:42 Temperature 97.0 F L Temperature Source Pulse Rate 63 Respiratory Rate 20 H Respiratory Pattern Blood Pressure 142/71 H Blood Pressure Mean Blood Pressure Source Blood Pressure Position Blood Pressure Location Baseline BP Pulse Ox 98 Oxygen Delivery Method Weight Weight: 209 lb 7.026 oz Body Mass Index (BMI) 35.9 Physical Exam Const alert, oriented x3, no apparent distress and healthy appearing General Appearance: cooperative GI normal to inspection, nondistended, normoactive bowel sounds, soft to palpation, non-tender and non-distended Percussion: normal to percussion Rectal Exam: deferred Assessment & Plan Assessment/Plan (1) Difficulty swallowing: PLAN: Assessment and Plan Assessment and Plan (1) Gastroesophageal reflux disease: Status: Acute Plan: aSrah is a 60-year-old female patient with a long history of intermittent dysphagia here today for ED follow-up. Patient presented to the ED 08/10/2025 after eating a protein bar and feeling it gets stuck in her esophagus. She regurgitated some of the protein bar and had hematemesis. Cardiac workup in the ED was negative. X-ray showing possible pneumonia or aspiration. She was started on levofloxacin and discharged. Patient continues to have esophageal pain today. She is able to eat solids and liquids. She continues with omeprazole 20 mg daily. I have recommended EGD for further evaluation of her upper GI tract and possible dilation if indicated. Risks and procedure was explained to patient and she was willing to proceed. - EGD - Continue PPI - Continue Pepcid as needed - Follow-up as needed Note: Portions of this note may have been selectively carried forward from previous documentation to ensure continuity and accuracy of the clinical record. All imported information has been reviewed and updated as necessary to reflect the current patient status, findings, and clinical decision-making for this encounter. [employer] speech recognition pierce and shave press operator software was used to create portions of this document. Sound alike and misspelled words, as well as other pierce and shave press operator errors may be contained in the documentation. (2) Difficulty swallowing: Status: Acute Comment: FOOD GETS STUCK ]
--- NOTE | 2025-08-20 13:15 | EGD_PTH ---
PATIENT: VIKAS LEDBETTER LOC: EN U#:[id number] AGE/SX: 60/F ROOM: RE08/20/[address]: Dr. Joseph Bowen DO : 1965 BED: DIS: 08/20/2025 SPEC #: [id number] RECD: 08/22/25 07:21 STATUS: HUNG DESIRE #: [id number] ARTI: 08/20/25 13:[address]: Joseph Bowen DEPT: SURGICAL PATHOLOGY RECD BY: Cristino Mcnulty ENTERED: 08/22/25 10:33 SP TYPE: EGD BIOPSY ESHA DR: Dr. Siddhartha Meadows MD Tissues: A - Esophagus, NOS Procedures: Surgery Specimen Level IV HEADER OPERATION: EGD with biopsy and dilation PRE-OP DIAGNOSIS: Difficulty swallowing, gastroesophageal reflux disease TISSUE SUBMITTED: A- Random esophagus biopsy MICROSCOPIC DIAGNOSIS A. Esophagus, random, biopsy: - Squamous mucosa with reactive changes and > 40 eosinophils per high power field. - Columnar mucosa negative for goblet cell metaplasia. - Fragment of duodenal mucosa - see note. - Negative for dysplasia. Note: A fragment of duodenal mucosa with normal villous architecture and Patrick glands is favored to represent a procedural contaminant/carryover. The columnar mucosa with focal esophageal squamous mucosa (from GE junction) is negative for goblet cells. Recommend clinical correlation. MICROSCOPIC DESCRIPTION Slides are reviewed. GROSS DESCRIPTION A. Received in fixative is one container labeled with the patient's name and designated Random esophagus biopsy. The specimen consists of multiple irregular fragments of singh tissue that in aggregate measure 1.5 x 0.6 x 0.2 cm. The specimen is totally submitted in one cassette. 08/22/2025 CPT:23822
[2025-08-20] MEDS: Lidocaine 1% (5 ml sdv) 5 ML Vial 10 ML IV (14:33)
--- NOTE | 2025-08-20 14:57 | OP.PROVAT_ITS ---
08/20/2025 Dank Meadows [address] [place] [address] Re : Upper GI endoscopy procedure for Sarah Oliveira Dear Dr. Meadows This procedure was performed on Wednesday, August 20, 2025. My impressions and recommendations are as follows: Impressions : - Esophageal mucosal changes consistent with eosinophilic esophagitis. Dilated. - Multiple gastric polyps. - Normal examined duodenum. - Biopsies were taken with a cold forceps for evaluation of eosinophilic esophagitis. Recommendations : - Discharge patient to home. - Full liquid diet today. - Continue present medications. - Await pathology results. My findings are described in the full procedure note, which is enclosed. If I can be of further assistance, please feel free to contact me at . Sincerely, Joseph Bowen, 08/20/2025 2:57:12 PM This report has been signed electronically.
--- NOTE | 2025-08-20 14:57 | OP.EGD_ITS ---
Patient Name: Sarah Oliveira Procedure Date: 08/20/2025 1:46 PM Date of : 1965 Age: 60 Procedure: Upper GI endoscopy Indications: Dysphagia Providers: Joseph Bowen DO Referring MD: Dank Meadows Medicines: Monitored Anesthesia Care Patient Profile: This is a 60 year old female. Refer to note in patient chart for documentation of history and physical. Patient has symptoms of dysphagia with solids. Complications: No immediate complications. Procedure: Pre-Anesthesia Assessment: - Prior to the procedure, a History and Physical was performed, and patient medications and allergies were reviewed. The patient is competent. The risks and benefits of the procedure and the sedation options and risks were discussed with the patient. All questions were answered and informed consent was obtained. Patient identification and proposed procedure were verified by the physician in the pre-procedure area. Mental Status Examination: alert and oriented. Airway Examination: normal oropharyngeal airway and neck mobility. Respiratory Examination: clear to auscultation. CV Examination: normal. Prophylactic Antibiotics: The patient does not require prophylactic antibiotics. Prior Anticoagulants: The patient has taken no anticoagulant or antiplatelet agents except for NSAID medication. ASA Grade Assessment: II - A patient with mild systemic disease. After reviewing the risks and benefits, the patient was deemed in satisfactory condition to undergo the procedure. The anesthesia plan was to use monitored anesthesia care (MAC). Immediately prior to administration of medications, the patient was re-assessed for adequacy to receive sedatives. The heart rate, respiratory rate, oxygen saturations, blood pressure, adequacy of pulmonary ventilation, and response to care were monitored throughout the procedure. The physical status of the patient was re-assessed after the procedure. After obtaining informed consent, the endoscope was passed under direct vision. Throughout the procedure, the patient's blood pressure, pulse, and oxygen saturations were monitored continuously. The Endoscope was introduced through the mouth, and advanced to the second part of duodenum. The upper GI endoscopy was accomplished without difficulty. The patient tolerated the procedure well. Scope In: 2:41:26 PM Scope Out: 2:48:45 PM Total Procedure Duration Time 0 hours 7 minutes 19 seconds Findings: Mucosal changes including ringed esophagus, longitudinal furrows and small-caliber esophagus were found in the upper third of the esophagus and in the middle third of the esophagus. Biopsies were obtained from the proximal and distal esophagus with cold forceps for histology of suspected eosinophilic esophagitis. Verification of patient identification for the specimen was done. Estimated blood loss was minimal. A guidewire was placed and the scope was withdrawn. Dilation was performed with a Savary dilator with no resistance at 57 Fr. The dilation site was examined and showed moderate mucosal disruption. Estimated blood loss was minimal. Multiple hyperplastic polyps with no bleeding and no stigmata of recent bleeding were found in the stomach. The examined duodenum was normal. Impression: - Esophageal mucosal changes consistent with eosinophilic esophagitis. Dilated. - Multiple gastric polyps. - Normal examined duodenum. - Biopsies were taken with a cold forceps for evaluation of eosinophilic esophagitis. Recommendation: - Discharge patient to home. - Full liquid diet today. - Continue present medications. - Await pathology results. Procedure Code(s): --- Professional --- 69209, Esophagogastroduodenoscopy, flexible, transoral; with insertion of guide wire followed by passage of dilator(s) through esophagus over guide wire 32412, 59,51, Esophagogastroduodenoscopy, flexible, transoral; with biopsy, single or multiple CPT copyright 2021 [employer]. All rights reserved. The codes documented in this report are preliminary and upon certified procedural coder review may be revised to meet current compliance requirements. Joseph Bowen DO 08/20/2025 2:57:12 PM This report has been signed electronically. Number of Addenda: 0 Note Initiated On: 08/20/2025 1:46 PM
--- NOTE | 2025-08-20 15:00 | PCM.POST.ANE ---
Anesthesia: Postop Eval I Current Vital Signs Temperature: 97.7 F Pulse Rate: 90 Blood Pressure: 134/73 Respiratory Rate: 16 Pulse Ox: 95 Assessment Airway patent: Yes Spontaneous unlabored respirations: Yes nausea: No Vomiting: No Anesthesia Complication: No Fluid Hydration Crystalloid volume administer (ml): 800 Total IV fluid infused: 800 Progress Note Anesthesia document: Postop Eval 1 completed: Yes
--- NOTE | 2025-08-20 15:09 | POSTOPAN2_ITS ---
Anesthesia Postop Eval I Sum Postop Eval Completion status Anesthesia document: Postop Eval 1 completed: Yes Anesthesia Postop Eval I Summary Anesthesia Postop Eval I Summary: Anesthesia Postop Eval I: Assessment Summary Airway patent Yes 08/20/25 15:00 CASH APPLICATIONS COORDINATOR.TNES Spontaneous unlabored Yes 08/20/25 15:00 CASH APPLICATIONS COORDINATOR.TNES respirations Mental status nausea No 08/20/25 15:00 CASH APPLICATIONS COORDINATOR.TNES Vomiting No 08/20/25 15:00 CASH APPLICATIONS COORDINATOR.TNES Anesthesia Postop Eval I: Fluid Summary Crystalloid volume administer 800 08/20/25 15:00 CASH APPLICATIONS COORDINATOR.TNES (ml) Colloids volume administered ( ml) Blood Product volume administered (ml) Total IV fluid infused 800 08/20/25 15:00 CASH APPLICATIONS COORDINATOR.TNES Anesthesia Postop Eval I: Summary Notes Anesthesia Complication No 08/20/25 15:00 CASH APPLICATIONS COORDINATOR.TNES Anesthesia Complication Comment: Post-operative progress note Anesthesia: Postop Eval II Evaluation Mental status: Awake Pain Level: 0 nausea: No Vomiting: No
--- NOTE | 2025-08-20 15:09 | PCM.POSTANE2 ---
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 SUPERVISOR.TNES respirations Mental status nausea No 08/20/25 15:00 MICROBIOLOGY SUPERVISOR.TNES Vomiting No 08/20/25 15:00 MICROBIOLOGY SUPERVISOR.TNES Anesthesia Postop Eval I: Fluid Summary Crystalloid volume administer 800 08/20/25 15:00 MICROBIOLOGY SUPERVISOR.TNES (ml) Colloids volume administered ( ml) Blood Product volume administered (ml) Total IV fluid infused 800 08/20/25 15:00 MICROBIOLOGY SUPERVISOR.TNES Anesthesia Postop Eval I: Summary Notes Anesthesia Complication No 08/20/25 15:00 MICROBIOLOGY SUPERVISOR.TNES Anesthesia Complication Comment: Post-operative progress note Anesthesia: Postop Eval II Evaluation Mental status: Awake Pain Level: 0 nausea: No Vomiting: No
== END 2025-08-20 15:50 | disposition home or self-care (01) ==
LOC: EN 12:08 → AC 12:10
PROVIDERS: PCP Family Medicine; Referring Provider Family Medicine; Visit Provider Internal Medicine Gastroenterology
PROC: 0DJ08ZZ Inspection of Upper Intestinal Tract, Via Natural or Artificial Opening Endoscopic (ICD-10-PCS; CPT 43235; principal; 2025-08-20 13:10)
DX: K31.7 Polyp of stomach and duodenum (principal); E11.9 Type 2 diabetes mellitus without complications; Z79.899 Other long term (current) drug therapy; K21.9 Gastro-esophageal reflux disease without esophagitis
CPT/HCPCS: 43248; 43239; 88305; C1769; J2405